=== PATIENT | female | born 1950 | race Caucasian/White ===

== ENCOUNTER 2024-03-05 08:10 | Observation (INO) ==
--- OUTSIDE RECORDS SUMMARY | 2024-03-05 09:37 | External Medical Summary | Summary of Care ---
Author Name Unknown Organization [facility] Address [address] [place] [address] Phone [phone] Care Team Providers Care Psychological Tests Sales Agent Name Role Phone George Cordoba Primary Care Provider Reason for Visit * Reason Comments Outpatient Testing Encounter Details Date Type Department Care Team (Late st Contact Info) Description 03/03/2024 9:50 AM EDT Laboratory Laboratory, [facility] [address] [place] [address] [facility] [address] [place] [address] HTN, goal below 130/80; Prediabetes; Dyslipidemia, goal LDL below 100; Abnormal nuclear cardiac imaging test Allergies No known active allergiesdocumented as of this encounter (statuses as of 03/03/2024) Medications Medication Sig Dispensed Refills Start Date End Date Status Centrum Silver 50+Women Oral Tablet Take by mouth. Active Omeprazole Magnesium 20 MG Oral Tablet Delayed Release Take 1 Tablet by mouth in the morning and 1 Tablet before bedtime. Active Acetaminophen 325 MG Oral Tablet (Tylenol) Take 2 Tablets by mouth in the morning and 2 Tablets at noon and 2 Tablets before bedtime. Active Magnesium Oxide 400 MG Oral Capsule Take 1 Capsule by mouth in the morning. Active Vitamin D3 50 MCG (1999 UT) Oral Capsule Take 1 Capsule by mouth in the morning. Active Aspirin 81 MG Oral Tablet Delayed Release Take 1 Tablet by mouth in the morning. Active Tylenol PM Extra Strength 500-25 MG Oral Tablet (diphenhydrAMINE-AP AP (sleep)) Take 1 Tablet by mouth at bedtime. Active Red Yeast Rice 600 MG Oral Tablet Take 2 Tablets by mouth every morning. Active Docusate Sodium 50 MG Oral Capsule (Colace) Take by mouth 2 times a day. Active Acetaminophen ER 650 MG Oral Tablet Extended Release Take 1 Tablet by mouth every 8 hours as needed. Active Nutritional Supplement Oral Liquid Take by mouth . Hylands Leg Cramps tablet, 2 tablets at bedtime Active Ketoconazole 2 % External Cream Apply 2 g topically to affected area in the morning. Apply to area as needed . 60 g 3 11/05/2022 Active Additional Information Patient not taking.Reported on 02/12/2024 Loratadine 10 MG Oral Tablet (Claritin) Take 1 Tablet by mouth in the morning. Active Losartan Potassium 25 MG Oral Tablet (Cozaar) Take 1 Tablet by mouth in the morning. 30 Tablet 5 10/11/2023 Active Metoprolol Succinate ER 25 MG Oral Tablet Extended Release 24 Hour (toPROL XL) Take 1 Tablet by mouth in the morning. 30 Tablet 5 12/04/2023 Active Nitroglycerin 0.4 MG Sublingual Tablet Sublingual (Nitrostat) Place 1 Tablet under the tongue every 5 minutes as needed for Pain, Chest. up to 3 doses in 15 minutes 12/04/2023 Active Fluticasone Propionate 50 MCG/ACT Nasal Suspension (Flonase)Indication s:Allergic rhinitis, unspecified seasonality, unspecified trigger Administer 2 Sprays into each nostril in the morning. 48 g 3 01/16/2024 Active Diclofenac Sodium 75 MG Oral Tablet Delayed Release (Voltaren) Take 1 Tablet by mouth in the morning and 1 Tablet before bedtime. 60 Tablet 5 01/28/2024 Active Ezetimibe 10 MG Oral Tablet (Zetia) Take 1 Tablet by mouth in the morning. 30 Tablet 5 02/12/2024 Active Losartan Potassium 50 MG Oral Tablet (Cozaar) TAKE 1 TABLET BY MOUTH EVERY MORNING 90 Tablet 2 02/26/2024 Active Chlorthalidone 25 MG Oral Tablet (Hygroton)Indicatio ns:Abnormal nuclear cardiac imaging test,HTN, goal below 130/80 Take 0.5 Tablets by mouth in the morning. In the morning.. 02/27/2024 Active documented as of this encounter (statuses as of 03/03/2024) Active Problems Problem Noted Date Diagnosed Date Dyslipidemia, goal LDL below 70 12/25/2023 Body mass index (BMI) of 40.0 to 44.9 in adult 0 10/22/2022 Overview: Per Obesity protocol Prediabetes 10/22/2022 Overview: Per Prediabetes protocol Asymptomatic bilateral carotid artery stenosis 0 11/08/2021 Statin intolerance 11/08/2021 Primary hyperparathyroidism 10/31/2021 Morbid obesity due to excess calories 05/02/2021 History of hyperparathyroidism 05/02/2021 HTN, goal below 130/80 05/02/2021 Generalized osteoarthritis 05/02/2021 Myofascial pain syndrome 05/02/2021 Hypovitaminosis D 05/02/2021 documented as of this encounter (statuses as of 03/03/2024) Immunizations Name Administration Dates Next Due COVID-19 mRNA, LNP-s, No Pre serve, 2-Dose Series ([employer]) 06/13/2021,10/29/2020,10/08/2020 Pneumococcal Conjugate Vacc, 13 Valent (Prevnar) 01/28/2020 Pneumococcal Polysaccharide PPV23 (Pneumovax) 01/30/2021 Varicella Zoster Vaccine (Adult) 05/31/2015 documented as of this encounter Social History Tobacco Use Types Packs/Day Years Used Date Smoking Tobacco: Former Cigarettes Q uit: 1985 Passive Smoke Exposure: Past Smokeless Tobacco: Never Alcohol Use Standard Drinks/Week Comments Not Currently 0 (1 standard drink = 0.6 oz pur e alcohol) PHQ-2 Answer Date Recorded PHQ Adult Total Score 0 12/07/2023 Utilities Answer Date Recorded Do you have trouble paying y our heating, water, or electric bill? (Adult - for ages 18 years and over) Not on file 01/28/2024 Is your family able to pay t he heat, water, or electric bill? (Household - for ages 0-17 years) Not on file 01/28/2024 Does your family have access to good internet? (Household - for ages 0-17 years) Not on file 01/28/2024 Social Connections Answer Date Recorded How often do you feel lonely or isolated from those around you? (Adult - for ages 18 years and over) Not on file 01/28/2024 Sex and Gender Information Value Date Recorded Sex Assigned at Not on file Gender Identity Not on file Sexual Orientation Not on file Job Start Date Occupation Industry Not on file Not on file Not on file documented as of this encounter Functional Status Functional Status Response Date of Assess ment Are you deaf or do you have serious difficulty h earing? No 03/07/2021 Are you blind or do you have serious difficulty seeing, even when wearing glasses? No 03/07/2021 Do you have serious difficul ty walking or climbing stairs? (5 years old or older) No 03/07/2021 Do you have difficulty dress ing or bathing? (5 years old or older) No 03/07/2021 Because of a physical, menta l, or emotional condition, do you have difficulty doing errands alone such as visiting a doctor s office or shopping? (15 years old or older) No 03/07/20 Cognitive Status Response Date of Assessm ent Because of a physical, menta l, or emotional condition, do you have serious difficulty concentrating, remembering, or making decisions? (5 years old or older) No 03/07/2021 documented as of this encounter Plan of Treatment Upcoming Encounters Date Type Department Care Team (Late st Contact Info) Description 05/19/2024 8:30 AM EDT Office Visit Cardiology, [facility] [address] [address] Sherrie Epperson PA-C [address] [address] 08/17/2024 10:00 AM EST Office Visit Family Practice [facility] [address] [place] [address] George Cordoba DO [address] [address] Pending Results Name Type Priority Associated Diagnoses Date /Time CBC WITH WBC DIFFERENTIAL Lab Routine HTN, goal below 130/80 03/03/2024 9:17 AM EDT COMPREHENSIVE METABOLIC PANEL Lab Routine HTN, goal below 130/80 Prediabetes Dyslipidemia, goal LDL below 100 03/03/2024 9:17 AM EDT HEMOGLOBIN A1C Lab Routine Prediabetes 03/03/2024 9:17 AM EDT LIPID PANEL WITH DIRECT LDL IF TG IS HIGH Lab Routine Dyslipidemia, goal LDL below 100 03/03/2024 9:17 AM EDT CBC Lab Routine HTN, goal below 130/80 03/03/2024 9:17 AM EDT DIFFERENTIAL, AUTOMATED Lab Routine HTN, goal below 130/80 03/03/2024 9:17 AM EDT Health Maintenance Due Date Last Done Comments DTaP,Tdap,and Td Vaccines (1 - Tdap) 1968 Cologuard 1994 Colonoscopy 1994 Fecal Occult Blood Test 1994 Sigmoidoscopy 1994 Zoster Vaccines (2 of 3) 07/26/2015 05/31/2015 COVID-19 Vaccine (4 - season) 2023 06/13/2021, 10/29/2020, 10/08/2020 Influenza Vaccine (FLU shot) (#1) 2024 HbA1c 11/27/2024 11/28/2023, 05/12, 10/29/2022, Additional history exists Depression Screening 12/06/2024 12/07/2023 GFR 02/25/2025 02/26/2024, 11/10, 10/11/2023, Additional history exists Albumin/Creatinine Ratio 11/27/2026 024, 05/30/2023, 11/02/2022 DXA Scan Discontinued 12/08/2018, 09/06/2016 Mammogram Discontinued 08/16/2020, 02/09/2020 Pneumococcal Vaccine: 65+ Years Completed 01/30/2021, 01/28/2020 Colorectal Cancer Screening Discontinued HPV (Gardasil) Vaccine Aged Out No lo nger eligible based on patient's age to complete this topic Hepatitis B Vaccine Aged Out No longe r eligible based on patient's age to complete this topic MENINGOCOCCAL (MENACTRA/MENVEO) Aged Out No longer eligible based on patient's age to complete this topic documented as of this encounter Medical Devices Not on filedocumented as of this encounter Visit Diagnoses Diagnosis HTN, goal below 130/80 Unspecified essential hypertension Prediabetes Other abnormal glucose Dyslipidemia, goal LDL below 100 Other and unspecified hyperlipidemia Abnormal nuclear cardiac imaging test Other nonspecific abnormal cardiovascular system function study documented in this encounter Advance Directives * Full Code (Latest Code Status on File) Date Activated Date Inactivated Comments 03/07/2021 1:11 PM 03/08/2021 1:17 PM This order r eflects the patients wishes and were consensually agreed upon. Care Teams Psychological Tests Sales Agent Relationship Specialty Start Date End Date George Cordoba DO [address] [place] [phone] PCP - General Family Medicine 05/02/21 documented as of this encounter
--- OUTSIDE RECORDS SUMMARY | 2024-03-05 09:37 | External Medical Summary | Summary of Care ---
Author Name Unknown Organization [facility] Address [address] [place] [address] Phone [phone] Care Team Providers Care Real Estate Paralegal Name Role Phone George Cordoba Primary Care Provider Reason for Visit * Reason Onset Date Comments Test Results 02/27/2024 Encounter Details Date Type Department Care Team (Late st Contact Info) Description 02/27/2024 Telephone Cardiology, [facility] [address] [facility] [place] [address] Sherrie Epperson PA-C [address] [facility] [place] [address] Test Results Allergies No known active allergiesdocumented as of this encounter (statuses as of 02/27/2024) Medications Medication Sig Dispensed Refills Start Date [...] PM Extra Strength 500-25 MG Oral Tablet (diphenhydrAMINE- APAP (sleep)) Take 1 Tablet by mouth at [...] Active Fluticasone Propionate 50 MCG/ACT Nasal Suspension (Flonase)Indicati ons:Allergic rhinitis, unspecified seasonality, unspecified trigger Administer 2 [...] 02/26/2024 Active Chlorthalidone 25 MG Oral Tablet (Hygroton)Indicat ions:Abnormal nuclear cardiac imaging test,HTN, goal below 130/80 Take 0.5 Tablets by mouth in the morning. In the morning.. 02/27/2024 Active Chlorthalidone 25 MG Oral Tablet (Hygroton)Indicat ions:HTN, goal below 130/80 TAKE 1 TABLET BY MOUTH EVERY MORNING 90 Tablet 2 02/26/2024 4 Discontinue d(Refill) documented as of this encounter (statuses as of 02/27/2024) Active Problems Problem Noted Date Diagnosed Date [...] as of this encounter (statuses as of 02/27/2024) Immunizations Name Administration Dates Next Due COVID-19 mRNA, LNP-s, No Pre serve, 2-Dose Series ([employer]) 06/13/2021,10/29/2020,10/08/2020 Pneumococcal Conjugate Vacc, 13 Valent (Prevnar) [...] No 03/07/2021 documented as of this encounter Miscellaneous Notes * Telephone Encounter - Farrah Vaca LPN - 02/27/2024 12:38 PM EDT ----- Message from Sherrie Epperson sent at 02/27/2024 9:51 AM EDT ----- Pre cath chest xray is clear * Telephone Encounter - Liban Guzmán RN - 02/27/2024 12:25 PM EDT Called and spoke to the patient and reviewed the message with her from Sherrie Epperson in regards to her pre-op lab work. She stated she understood. Med list updated and orders placed for lab work. * Telephone Encounter - Liban Guzmán RN - 02/27/2024 12:25 PM EDT ----- Message from Sherrie Epperson sent at 02/27/2024 9:53 AM EDT ----- Sodium is slightly low and BUN elevated. Recommend reducing chlorthalidone to 25 mg - 1/2 tab daily Repeat BMP early next week Other pre cath labs are stable documented in this encounter Plan of Treatment Upcoming Encounters Date Type Department Care Team (Late st Contact Info) Description 05/19/2024 8:30 AM EDT Office Visit Cardiology, [facility] [address] [place] [address] Sherrie Epperson PA-C [address] [place] [address] 08/17/2024 10:00 AM EST Office Visit Family Practice [facility] [address] [place] [address] George Cordoba DO [address] [place] [id number] Scheduled Orders Name Type Priority Associated Diagnoses Orde r Schedule BASIC METABOLIC PANEL Lab Routine Abnormal nuclear cardiac imaging test Expected: 03/03/2024 (Approximate), Expires: 02/26/2025 Health Maintenance Due Date Last Done Comments [...] as of this encounter Visit Diagnoses Diagnosis Abnormal nuclear cardiac imaging test- Primary Other nonspecific abnormal cardiovascular system function study HTN, goal below 130/80 Unspecified essential hypertension documented in this encounter Advance Directives * Full Code (Latest Code Status on File) Date Activated Date Inactivated Comments 03/07/2021 1:11 PM 03/08/2021 1:17 PM This order r eflects the patients wishes and were consensually agreed upon. Care Teams Real Estate Paralegal Relationship Specialty Start Date End Date George Cordoba DO [address] [place] [address] PCP - General Family Medicine 05/02/21 documented as of this encounter
--- OUTSIDE RECORDS SUMMARY | 2024-03-05 09:37 | External Medical Summary ---
Author Name Unknown Address Unknown Organization [id number] [address] [place] [id number] Laboratory Report Ordering Provider Test Date Status PERNELL KAY 03/03/2024 09:24:52 Final Observation Date Value Abnormality Reference (Units ) Status BUN 03/03/2024 09:24:52 21 Above high normal 6-20 (mg/dL) Final Creatinine 03/03/2024 09:24:52 0.8 0.5-1.0 (mg/dL) Final Glomerular filtration rate/1.73 sq M.predicted [Volume Rate/Area] in Serum, Plasma or Blood by Creatinine-based formula (CKD-EPI) 03/03/2024 09:24:52 74 >=60 (mL/min) Final eGFR is calculated based on the CKD-EPI 2020 equation. Sodium 03/03/2024 09:24:52 133 Below low normal 135 -146 (mmol/L) Final Potassium 03/03/2024 09:24:52 5.0 3.5-5.1 (m mol/L) Final Cl 03/03/2024 09:24:52 95 Below low normal 98- 107 (mmol/L) Final CO2 03/03/2024 09:24:52 25 22-32 (mmo l/L) Final Anion gap 03/03/2024 09:24:52 13 7-15 (mmol /L) Final Glucose 03/03/2024 09:24:52 109 70-120 (mg /dL) Final Calcium 03/03/2024 09:24:52 10.0 8.4-10.2 ( mg/dL) Final Performing Location [facility] [address] [place] [id number]
--- OUTSIDE RECORDS SUMMARY | 2024-03-05 09:37 | External Medical Summary | Summary of Care ---
Author Name Unknown Organization [facility] Address [address] [place] [address] Phone [phone] Care Team Providers Care Inspector And Mender Name Role Phone George Cordoba Primary Care Provider Reason for Visit * Reason Comments Outpatient Testing Encounter Details Date Type Department Care Team (Late st Contact Info) Description 03/03/2024 9:50 AM EDT Laboratory Laboratory, [facility] [address] [place] [address] [facility] [address] [place] [address] HTN, goal below 130/80; Prediabetes; Dyslipidemia, goal [...] mRNA, LNP-s, No Pre serve, 2-Dose Series (Empiribox) 06/13/2021,10/29/2020,10/08/2020 Pneumococcal Conjugate Vacc, 13 Valent (Prevnar) [...] 05/19/2024 8:30 AM EDT Office Visit Cardiology, [facility] [address] [address] Sherrie Epperson PA-C [address] [address] 08/17/2024 10:00 AM EST Office Visit Family Practice [facility] [address] [place] [address] George Cordoba DO [address] [address] Pending Results Name Type Priority Associated Diagnoses Date /Time CBC WITH WBC DIFFERENTIAL Lab Routine HTN, goal below 130/80 03/03/2024 9:17 AM EDT COMPREHENSIVE METABOLIC PANEL Lab Routine HTN, goal below 130/80 Prediabetes Dyslipidemia, goal LDL below 100 03/03/2024 9:17 AM EDT LIPID PANEL WITH [...] and were consensually agreed upon. Care Teams Inspector And Mender Relationship Specialty Start Date End Date George Cordoba DO [address] [address] PCP - General Family Medicine 05/02/21 documented as of this encounter
--- OUTSIDE RECORDS SUMMARY | 2024-03-05 09:37 | External Medical Summary | Summary of Care ---
Author Name Unknown Organization [facility] Address [address] [place] [address] Phone [phone] Care Team Providers Care Maltster Name Role Phone George Cordoba Primary Care Provider Reason for Visit * Reason Comments Outpatient Testing Encounter Details Date Type Department Care Team (Late st Contact Info) Description 03/03/2024 9:50 AM EDT Laboratory Laboratory, [facility] [address] [place] [address] [facility] [address] [place] [address] HTN, goal below 130/80; Prediabetes; Dyslipidemia, goal LDL below 100; Abnormal nuclear cardiac imaging test; Morbid obesity due to excess calories (HCC) Allergies No known active allergiesdocumented as of [...] the morning. Active Vitamin D3 50 MCG (2000 UT) Oral Capsule Take 1 Capsule by [...] mRNA, LNP-s, No Pre serve, 2-Dose Series (Pfizer) 06/13/2021,10/29/2020,10/08/2020 Pneumococcal Conjugate Vacc, 13 Valent (Prevnar) [...] 05/19/2024 8:30 AM EDT Office Visit Cardiology, [facility] [address] [address] Sherrie Epperson PA-C [address] [address] 08/17/2024 10:00 AM EST Office Visit Family Practice [facility] [address] [address] George Cordoba, [address] [address] Pending Results Name Type Priority Associated Diagnoses Date /Time BASIC METABOLIC PANEL Lab Routine Morbid obesity due to excess calories (HCC) 03/03/2024 9:24 AM EDT Scheduled Orders Name Type Priority Associated Diagnoses Orde r Schedule CBC Lab Routine HTN, goal below 130/80 Ordered: 03/03/2024 DIFFERENTIAL, AUTOMATED Lab Routine HTN, goal below 130/80 Ordered: 03/03/2024 Health Maintenance Due Date Last Done Comments [...] Other nonspecific abnormal cardiovascular system function study Morbid obesity due to excess calories (HCC) documented in this encounter Advance Directives * Full Code (Latest Code Status on File) Date Activated Date Inactivated Comments 03/07/2021 1:11 PM 03/08/2021 1:17 PM This order r eflects the patients wishes and were consensually agreed upon. Care Teams Maltster Relationship Specialty Start Date End Date George Cordoba DO [address] [address] PCP - General Family Medicine 05/02/21 documented as of this encounter
--- OUTSIDE RECORDS SUMMARY | 2024-03-05 09:37 | External Medical Summary | Summary of Care ---
Author Name Unknown Organization [facility] Address [address] [place] [address] Phone [phone] Care Team Providers Care Financial Operations Analyst Name Role Phone George Cordoba Primary Care Provider Reason for Visit * Reason Onset Date Comments Procedure 03/04/2024 Encounter Details Date Type Department Care Team (Late st Contact Info) Description 03/04/2024 Telephone Cardiology, [facility] [address] [place] [address] Sherrie Epperson PA-C [address] [facility] [place] [address] Procedure Allergies No known active allergiesdocumented as of this encounter (statuses as of 03/04/2024) Medications Medication Sig Dispensed Refills Start Date [...] as of this encounter (statuses as of 03/04/2024) Active Problems Problem Noted Date Diagnosed Date [...] as of this encounter (statuses as of 03/04/2024) Immunizations Name Administration Dates Next Due COVID-19 mRNA, LNP-s, No Pre serve, 2-Dose Series ([employer]) 06/13/2021,10/29/2020,10/08/2020 Pneumococcal Conjugate Vacc, 13 Valent (Prevnar) [...] encounter Miscellaneous Notes * Telephone Encounter - Liban Guzmán RN - 03/04/2024 12:01 PM EDT Patient scheduled for cardiac cath on 03/04/2026 at [facility] with Dr. Marquez. Arrival time is 0830. Procedure at 0930. Arrive at main entrance. 1). Do not eat or drink anything at 10:00 pm the night before procedure. 2). No caffeine for 24 hours before procedure. 3). No tobacco products after midnight on the night before procedure. 4). Do not take the [place] the morning of the procedure 5). Take Losartan; Metoprolol; Claritin; Magnesium; the morning of the procedure 6).Take (4) 81 mg ASA the morning of the procedure. 7). Do not wear any jewelry. 8). Take all medications to the hospital with you in original bottles. 9). Make sure you have someone drive you home. Call the clinic if you have any further questions or concerns. documented in this encounter Plan of Treatment Upcoming Encounters Date Type Department Care Team (Late st Contact Info) Description 05/19/2024 8:30 AM EDT Office Visit Cardiology, [facility] [address] [place] [address] Sherrie Epperson PA-C [address] [place] [address] 08/17/2024 10:00 AM EST Office Visit Family Practice [facility] [address] [place] [address] George Cordoba DO [address] [place] [address] Health Maintenance Due Date Last Done Comments DTaP,Tdap,and Td Vaccines (1 - Tdap) 1968 Cologuard 1994 Colonoscopy 1994 Fecal Occult Blood Test 1994 Sigmoidoscopy 1994 Zoster Vaccines (2 of 3) 07/26/2015 05/31/2015 COVID-19 Vaccine ( season) 2023 06/13/2021, 10/29/2020, 10/08/2020 Influenza Vaccine (FLU shot) (#1) 2024 HbA1c 11/27/2024 11/28/2023, 05/12, 10/29/2022, Additional history exists Depression Screening 12/06/2024 12/07/2023 GFR 03/03/2025 03/03/2024, 02/09, 11/28/2023, Additional history exists Albumin/Creatinine Ratio 11/27/20262 024, 05/30/2023, 11/02/2022 DXA Scan Discontinued 12/08/2018, [...] Not on filedocumented as of this encounter Advance Directives * Full Code (Latest Code Status on File) Date Activated Date Inactivated Comments 03/07/2021 1:11 PM 03/08/2021 1:17 PM This order r eflects the patients wishes and were consensually agreed upon. Care Teams Financial Operations Analyst Relationship Specialty Start Date End Date George Cordoba DO [address] [address] PCP - General Family Medicine 05/02/21 documented as of this encounter
--- OUTSIDE RECORDS SUMMARY | 2024-03-05 09:37 | External Medical Summary | Summary of Care ---
Author Name Unknown Organization [facility] Address [address] [place] [address] Phone [phone] Care Team Providers Care Injection Operator Name Role Phone George Cordoba Primary Care Provider Reason for Visit * Reason Comments Outpatient Testing Encounter Details Date Type Department Care Team (Late st Contact Info) Description 03/03/2024 9:50 AM EDT Laboratory Laboratory, [facility] [address] [place] [address] [facility] [address] [place] [address] HTN, goal below 130/80; Prediabetes; Dyslipidemia, goal [...] mRNA, LNP-s, No Pre serve, 2-Dose Series ([employer]) 06/13/2021,10/29/2020,10/08/2020 Pneumococcal Conjugate Vacc, 13 Valent (Prevnar) [...] 05/19/2024 8:30 AM EDT Office Visit Cardiology, [facility] [address] [address] Sherrie Epperson PA-C [address] [address] 08/17/2024 10:00 AM EST Office Visit Family Practice [facility] [address] [address] George Cordoba DO [address] [address] Pending Results Name Type Priority Associated Diagnoses Date /Time COMPREHENSIVE METABOLIC PANEL Lab Routine HTN, goal below 130/80 Prediabetes Dyslipidemia, goal LDL below 100 03/03/2024 9:17 AM EDT Scheduled Orders Name Type Priority [...] and were consensually agreed upon. Care Teams Injection Operator Relationship Specialty Start Date End Date George Cordoba DO [address] [address] PCP - General Family Medicine 05/02/21 documented as of this encounter
--- OUTSIDE RECORDS SUMMARY | 2024-03-05 09:37 | External Medical Summary | Summary of Care ---
Author Name Unknown Organization [facility] Address [address] [place] [address] Phone [phone] Care Team Providers Care Sonar Technician Name Role Phone George Cordoba Primary Care Provider Reason for Visit * Reason Comments Outpatient Testing Encounter Details Date Type Department Care Team (Late st Contact Info) Description 03/03/2024 9:50 AM EDT Laboratory Laboratory, [facility] [address] [place] [address] [facility] [address] [place] [address] HTN, goal below 130/80; Prediabetes; Dyslipidemia, goal [...] 05/19/2024 8:30 AM EDT Office Visit Cardiology, [facility] [address] [address] Sherrie Epperson PA-C [address] [address] 08/17/2024 10:00 AM EST Office Visit Family Practice [facility] [address] [address] George Cordoba, [address] [address] Pending Results Name Type Priority Associated Diagnoses [...] and were consensually agreed upon. Care Teams Sonar Technician Relationship Specialty Start Date End Date George Cordoba DO [address] [address] PCP - General Family Medicine 05/02/21 documented as of this encounter
--- OUTSIDE RECORDS SUMMARY | 2024-03-05 09:37 | External Medical Summary | Summary of Care ---
Author Name Unknown Organization [facility] Address [address] [place] [address] Phone [phone] Care Team Providers Care Roof Slater Name Role Phone George Cordoba Primary Care Provider Reason for Visit * Reason Comments Outpatient Testing Encounter Details Date Type Department Care Team (Late st Contact Info) Description 03/03/2024 9:50 AM EDT Laboratory Laboratory, [facility] [address] [facility] [place] [address] [facility] [address] [facility] [place] [address] HTN, goal below 130/80; Prediabetes; Dyslipidemia, goal [...] mRNA, LNP-s, No Pre serve, 2-Dose Series ([employer]) 06/13/2021,10/29/2020,10/08/2020 Pneumococcal Conjugate Vacc, 13 Valent (Prevnar) [...] 05/19/2024 8:30 AM EDT Office Visit Cardiology, [facility] [address] [address] Sherrie Epperson PA-C [address] [address] 08/17/2024 10:00 AM EST Office Visit Family Practice [facility] [address] [address] George Cordoba DO [address] [address] Pending Results Name Type Priority Associated Diagnoses [...] and were consensually agreed upon. Care Teams Roof Slater Relationship Specialty Start Date End Date George Cordoba DO [address] [place] [address] PCP - General Family Medicine 05/02/21 documented as of this encounter
--- OUTSIDE RECORDS SUMMARY | 2024-03-05 09:37 | External Medical Summary | Summary of Care ---
Author Name Unknown Organization [facility] Address [address] [place] [address] Phone [phone] Care Team Providers Care Bag Making Machine Operator Name Role Phone George Cordoba Primary Care Provider Reason for Visit * Reason Comments Outpatient Testing Encounter Details Date Type Department Care Team (Late st Contact Info) Description 03/03/2024 9:50 AM EDT Laboratory Laboratory, [facility] [address] [place] [address] [facility] [address] [place] [address] HTN, goal below 130/80; Prediabetes; Dyslipidemia, goal [...] mRNA, LNP-s, No Pre serve, 2-Dose Series ([employer]) 06/13/2021,10/29/2020,10/08/2020 Pneumococcal Conjugate Vacc, 13 Valent (Prevnar) [...] 8:30 AM EDT Office Visit Cardiology, [facility] [address] [address] Sherrie Epperson PA-C [address] [address] 08/17/2024 10:00 AM EST Office Visit Family Practice [facility] [address] [address] George Cordoba DO [address] [address] Scheduled Orders Name Type Priority Associated Diagnoses [...] and were consensually agreed upon. Care Teams Bag Making Machine Operator Relationship Specialty Start Date End Date George Cordoba DO [address] [place] [address] PCP - General Family Medicine 05/02/21 documented as of this encounter
--- OUTSIDE RECORDS SUMMARY | 2024-03-05 09:37 | External Medical Summary | Summary of Care ---
Author Name Unknown Organization [facility] Address [address] [place] [address] Phone [phone] Care Team Providers Care Musical Instrument Mechanic Name Role Phone George Cordoba Primary Care Provider Reason for Visit * Reason Onset Date Comments Test Results 02/27/2024 Encounter Details Date Type Department Care Team (Late st Contact Info) Description 02/27/2024 Telephone Cardiology, [facility] [address] [facility] [place] [address] Sherrie Epperson PA-C [address] [facility] [address] Test Results Allergies No known active allergiesdocumented [...] mRNA, LNP-s, No Pre serve, 2-Dose Series ([employer]) 06/13/2021,10/29/2020,10/08/2020 Pneumococcal Conjugate Vacc, 13 Valent (Prevnar) [...] 05/19/2024 8:30 AM EDT Office Visit Cardiology, [facility] [address] [place] [address] Sherrie Epperson PA-C [address] [place] [address] 08/17/2024 10:00 AM EST Office Visit Family Practice [facility] [address] [place] [place] [address] George Cordoba DO [address] [place] [address] Scheduled Orders Name Type Priority Associated Diagnoses [...] and were consensually agreed upon. Care Teams Musical Instrument Mechanic Relationship Specialty Start Date End Date George Cordoba DO [address] [place] [address] PCP - General Family Medicine 05/02/21 documented as of this encounter
--- OUTSIDE RECORDS SUMMARY | 2024-03-05 09:37 | External Medical Summary | Summary of Care ---
Author Name Unknown Organization [facility] Address [address] [place] [address] Phone [phone] Care Team Providers Care Customs And Border Protection Inspector Name Role Phone George Cordoba Primary Care Provider Reason for Visit * Reason Comments Outpatient Testing Encounter Details Date Type Department Care Team (Late st Contact Info) Description 03/03/2024 9:50 AM EDT Laboratory Laboratory, [facility] [address] [place] [address] [facility] [address] [place] [address] HTN, goal below 130/80; Prediabetes; Dyslipidemia, goal [...] mRNA, LNP-s, No Pre serve, 2-Dose Series ([employer]) 06/13/2021,10/29/2020,10/08/2020 Pneumococcal Conjugate Vacc, 13 Valent (Prevnar) [...] 05/19/2024 8:30 AM EDT Office Visit Cardiology, [facility] [address] [address] Sherrie Epperson PA-C [address] [address] 08/17/2024 10:00 AM EST Office Visit Family Practice [facility] [address] [address] George Cordoba DO [address] [address] Scheduled Orders Name Type Priority Associated Diagnoses [...] and were consensually agreed upon. Care Teams Customs And Border Protection Inspector Relationship Specialty Start Date End Date George Cordoba DO [address] [place] [address] PCP - General Family Medicine 05/02/21 documented as of this encounter
--- OUTSIDE RECORDS SUMMARY | 2024-03-05 09:38 | External Medical Summary | Summary of Care ---
Author Name Unknown Organization [facility] Address [address] [place] [address] Phone [phone] Care Team Providers Care Buyer Broker Name Role Phone George Cordoba Primary Care Provider Reason for Visit * Reason Onset Date Comments Procedure 02/26/2024 Encounter Details Date Type Department Care Team (Late st Contact Info) Description 02/26/2024 Telephone Cardiology, [facility] [address] [place] [address] Sherrie Epperson PA-C [address] [facility] [place] [address] Procedure Allergies No known active allergiesdocumented as of this encounter (statuses as of 02/26/2024) Medications Medication Sig Dispensed Refills Start Date [...] Additional Information Patient not taking.Reported on 02/12/2024 Chlorthalidone 25 MG Oral Tablet (Hygroton)Indicatio ns:HTN, goal below 130/80 Take 1 Tablet by mouth in the morning. In the morning.. 90 Tablet 3 06/04/2023 Active Loratadine 10 MG Oral Tablet (Claritin) Take [...] the morning. 30 Tablet 5 02/12/2024 Active documented as of this encounter (statuses as of 02/26/2024) Active Problems Problem Noted Date Diagnosed Date [...] as of this encounter (statuses as of 02/26/2024) Immunizations Name Administration Dates Next Due COVID-19 mRNA, LNP-s, No Pre serve, 2-Dose Series ([email or web address]) 06/13/2021,10/29/2020,10/08/2020 Pneumococcal Conjugate Vacc, 13 Valent (Prevnar) [...] (15 years old or older) No 03/07/20 21 Cognitive Status Response Date of Assessm ent Because of a physical, menta l, or emotional condition, do you have serious difficulty concentrating, remembering, or making decisions? (5 years old or older) No 03/07/2021 documented as of this encounter Miscellaneous Notes * Telephone Encounter - Liban Guzmán RN - 02/26/2024 9:11 AM EDT Patient is scheduled for cardiac cath on 03/05/[address] Marquez at [facility]. She stopped in today for her EKG and pre-op teaching. During her visit today she stated she cannot take the Zetia, It is causing her severe muscle pains. She states she is going to stop it for a week to see if that is theproblem. She will let us know how she makes out. 1). Arrive at [facility] main entrance on 03/05/2024 at 0830 am. 2). Nothing to eat or drink after Midnight the night before the cath. 3). No caffeine for 24 hours prior to the procedure. 4). No tobacco products after midnight thenight berore the procedure. 5). No over the counter vitamins, fish oil and or vitamin E the morning of your procedure. 6). You may take all your morning meds with a sip of water in the am of the procedure. 7). Take four (4) 81 mg low dose aspirin on the morning of your procedure. 8). Do not wear any jewelry the day of the procedure. 9). Take all your medication with you in the orginal container. 10). The plan is to discharge you after the procedure. You will go to recovery after the procedure.Please take something to read or tablet. No TV's in the room. 11). Please have someone available with you to drive you home. 12). Call the clinic if you have any questions before or after the procedure. documented in this encounter Plan of Treatment Upcoming Encounters Date Type Department Care Team (Late st Contact Info) Description 05/19/2024 8:30 AM EDT Office Visit Cardiology, [facility] [address] [place] [address] Sherrie Epperson PA-C [address] [place] [address] 08/17/2024 10:00 AM EST Office Visit Family Practice [facility] [address] [place] [address] George Cordoba, [address] [place] [address] Health Maintenance Due Date Last Done Comments DTaP,Tdap,and Td Vaccines (1 - Tdap) 1968 Cologuard 1994 Colonoscopy 1994 Fecal Occult Blood Test 1994 Sigmoidoscopy 1994 Zoster Vaccines (2 of 3) 07/26/2015 05/31/2015 COVID-19 Vaccine ( season) 2023 06/13/2021, 10/29/2020, 10/08/2020 Influenza Vaccine (FLU shot) (#1) 2024 GFR 11/27/2024 11/28/2023, 0308/2023, 05/28/2023, Additional history exists HbA1c 11/27/2024 11/28/2023, 05/12, 10/29/2022, Additional history exists Depression Screening 12/06/2024 12/07/2023 Albumin/Creatinine Ratio 11/27/20262 024, 05/30/2023, 11/02/2022 DXA [...] and were consensually agreed upon. Care Teams Buyer Broker Relationship Specialty Start Date End Date George Cordoba DO [address] [address] PCP - General Family Medicine 05/02/21 documented as of this encounter
--- OUTSIDE RECORDS SUMMARY | 2024-03-05 09:38 | External Medical Summary | Summary of Care ---
Author Name Unknown Organization [facility] Address [address] [place] [address] Phone [phone] Care Team Providers Care Filling And Stapling Machine Operator Name Role Phone George Cordoba Primary Care Provider Reason for Visit * Reason Comments Outpatient Testing Encounter Details Date Type Department Care Team (Late st Contact Info) Description 02/26/2024 9:20 AM EDT Laboratory Laboratory, [facility] [address] [place] [address] [facility] [address] [place] [address] Chest pain, unspecified type; Abnormal nuclear cardiac imaging test Allergies No [...] mRNA, LNP-s, No Pre serve, 2-Dose Series ([employer]) 06/13/2021,10/29/2020,10/08/2020 Pneumococcal Conjugate Vacc, 13 Valent (Prevnar) [...] 05/19/2024 8:30 AM EDT Office Visit Cardiology, [facility] [address] [place] [address] Sherrie Epperson PA-C [address] [address] 08/17/2024 10:00 AM EST Office Visit Family Practice [facility] [address] [address] George Cordoba, [address] [address] Pending Results Name Type Priority Associated Diagnoses Date /Time CBC Lab Routine Chest pain, unspecified type Abnormal nuclear cardiac imaging test 02/26/2024 9:31 AM EDT BASIC METABOLIC PANEL Lab Routine Chest pain, unspecified type Abnormal nuclear cardiac imaging test 02/26/2024 9:31 AM EDT PT INR Lab Routine Chest pain, unspecified type Abnormal nuclear cardiac imaging test 02/26/2024 9:31 AM EDT APTT Lab Routine Chest pain, unspecified type Abnormal nuclear cardiac imaging test 02/26/2024 9:31 AM EDT Health Maintenance Due Date Last Done Comments DTaP,Tdap,and Td Vaccines (1 - Tdap) 1968 Cologuard 1994 Colonoscopy 1994 Fecal Occult Blood Test 1994 Sigmoidoscopy 1994 Zoster Vaccines (2 of 3) 07/26/2015 05/31/2015 COVID-19 Vaccine ( season) 2023 06/13/2021, 10/29/2020, 10/08/2020 Influenza Vaccine (FLU shot) (#1) 2024 GFR 11/27/2024 11/28/2023, 08/2023, 05/28/2023, Additional history exists HbA1c 11/27/2024 11/28/2023, 05/12, 10/29/2022, Additional history exists Depression Screening 12/06/2024 12/07/2023 Albumin/Creatinine Ratio 11/27/2026 024, 05/30/2023, 11/02/2022 DXA [...] as of this encounter Visit Diagnoses Diagnosis Chest pain, unspecified type Abnormal nuclear cardiac imaging test Other nonspecific abnormal cardiovascular system function study documented in this encounter Advance Directives * Full Code (Latest Code Status on File) Date Activated Date Inactivated Comments 03/07/2021 1:11 PM 03/08/2021 1:17 PM This order r eflects the patients wishes and were consensually agreed upon. Care Teams Filling And Stapling Machine Operator Relationship Specialty Start Date End Date George Cordoba DO [address] [place] [address] PCP - General Family Medicine 05/02/21 documented as of this encounter
--- OUTSIDE RECORDS SUMMARY | 2024-03-05 09:38 | External Medical Summary | Summary of Care ---
Author Name Unknown Organization [facility] Address [address] [place] [address] Phone [phone] Care Team Providers Care Stage Set Up Worker Name Role Phone George Cordoba Primary Care Provider Reason for Visit * Reason Onset Date Comments Procedure 02/26/2024 Encounter Details Date Type Department Care Team (Late st Contact Info) Description 02/26/2024 Telephone Cardiology, [facility] [address] [place] [address] Sherrie Epperson PA-C [address] [facility] [place] [address] Procedure Allergies No known active allergiesdocumented as [...] mRNA, LNP-s, No Pre serve, 2-Dose Series ([employer]) 06/13/2021,10/29/2020,10/08/2020 Pneumococcal Conjugate Vacc, 13 Valent (Prevnar) [...] for cardiac cath on 03/05/[address] Maqruez at [facility]. She stopped in today for her EKG and pre-op teaching. During her visit today she stated she cannot take the Zetia, It is causing her severe muscle pains. She states she is going to stop it for a week to see if that is theproblem. She will let us know how she makes out. 1). Arrive at [facility] main entrance on 03/05/2024 at 0830 am. [...] 05/19/2024 8:30 AM EDT Office Visit Cardiology, [facility] [address] [place] [address] Sherrie Epperson PA-C [address] [place] [address] 08/17/2024 10:00 AM EST Office Visit Family Practice [facility] [address] [place] [address] George Cordoba, [address] [place] [address] Health Maintenance Due Date Last Done Comments [...] and were consensually agreed upon. Care Teams Stage Set Up Worker Relationship Specialty Start Date End Date George Cordoba DO [address] [address] PCP - General Family Medicine 05/02/21 documented as of this encounter
--- OUTSIDE RECORDS SUMMARY | 2024-03-05 09:38 | External Medical Summary ---
Author Name Unknown Address Unknown Organization [facility] [address] [place] [id number] Laboratory Report Ordering Provider Test Date Status PERNELL KAY 02/26/2024 09:31:00 Final Warfarin Therapy
INR: 2 .0-3.0 conventional anticoagulation
INR: 2.5- 3.5 high intensity anticoagulation Observation Date Value Abnormality Reference (Units ) Status PT 02/26/2024 09:31:00 12.3 11.6-15.2 (seconds) Final INR 02/26/2024 09:31:00 0.9 0.8-1.2 Final Performing Location [facility] [address] [place] [id number]
--- OUTSIDE RECORDS SUMMARY | 2024-03-05 09:38 | External Medical Summary ---
Author Name Unknown Address Unknown Organization [id number] [address] [place] [id number] Laboratory Report Ordering Provider Test Date Status PERNELL AKY 02/26/2024 09:31:00 Final Observation Date Value Abnormality Reference (Units ) Status WBC, Total 02/26/2024 09:31:00 10.58 4.00-10.8 0 (K/uL) Final RBC 02/26/2024 09:31:00 4.65 3.85-5.15 (M/uL) Final Hemoglobin 02/26/2024 09:31:00 13.2 12.0-15.3 (g/dL) Final HCT 02/26/2024 09:31:00 40.7 36.0-45.2 (%) Final MCV 02/26/2024 09:31:00 87.5 81.5-97.5 (fL) Final MCH 02/26/2024 09:31:00 28.4 27.0-34.0 (pg) Final MCHC 02/26/2024 09:31:00 32.4 32.0-36.0 (g/dL) Final RDW 02/26/2024 09:31:00 12.9 11.5-15.5 (%) Final Platelets 02/26/2024 09:31:00 353 140-400 (K /uL) Final MPV 02/26/2024 09:31:00 8.8 6.6-11.1 ( fL) Final Performing Location [facility] [address] [place] [id number]
--- OUTSIDE RECORDS SUMMARY | 2024-03-05 09:38 | External Medical Summary | Summary of Care ---
Author Name Unknown Organization [facility] Address [address] [place] [facility] [place] [address] Phone [phone] Care Team Providers Care Vehicle Sales Professional Name Role Phone George Cordoba Primary Care Provider Reason for Visit * Reason Onset Date Comments Advice 02/19/2024 Set up heart cat h & discuss Encounter Details Date Type Department Care Team (Late st Contact Info) Description 02/19/2024 Telephone Cardiology, [facility] [address] [place] [address] Sherrie Epperson PA-C [address] [place] [address] Advice (Set up heart cath & discuss) Allergies No known active allergiesdocumented as of this encounter (statuses as of 02/20/2024) Medications Medication Sig Dispensed Refills Start Date [...] as of this encounter (statuses as of 02/20/2024) Active Problems Problem Noted Date Diagnosed Date [...] as of this encounter (statuses as of 02/20/2024) Immunizations Name Administration Dates Next Due COVID-19 mRNA, LNP-s, No Pre serve, 2-Dose Series ([employer]) 06/13/2021,10/29/2020,10/08/2020 Pneumococcal Conjugate Vacc, 13 Valent (Prevnar) [...] Telephone Encounter - Liban Guzmán RN - 02/20/2024 2:52 PM EDT Called and spoke to the patient and explained she is scheduled for cardiac cath at [facility] on 03/05/2024 at arrival time of 0830 am . She stated that will be fine. She will come in on February 26, 2024 forall her pre-op studies. Orders placed. * Telephone Encounter - Sherrie Epperson PA-C - 02/20/2024 1:03 PM EDT Please arrange diagnostic cardiac cath at [facility] I believe patient was leaning towards [place] due to transportation issues. We discussed both options. See where she prefers. She will need updated EKG, labs, chest xray prior to procedure. * Telephone Encounter - Cherelle Martinez OSA - 02/19/2024 9:38 AM EDT Person calling: Ashley Relationship to patient: Self Number to return call: [phone] Reason for call (brief): Discuss heart cath Pharmacy: N/A Provider Name: Sherrie Epperson Detailed message to office: Seen last week & wants to set up a heat Cath. Please call back to advise Outcome: TE documented in this encounter Plan of Treatment Upcoming Encounters Date Type Department Care Team (Late st Contact Info) Description 02/26/2024 9:00 AM EDT Cardiac Studies Cardiac Studies, [facility] [address] [place] [address] 05/19/2024 8:30 AM EDT Office Visit Cardiology, [facility] [address] [place] [address] Sherrie Epperson, TRISHA [address] [place] [address] 08/17/2024 10:00 AM EST Office Visit Family Practice [facility] [address] [place] [address] George Cordoba DO [address] [place] [address] Scheduled Orders Name Type Priority Associated Diagnoses Orde r Schedule EKG COMPLETE (TRACING AND INTERP) EKG Routine Chest pain, unspecified type Abnormal nuclear cardiac imaging test Ordered: 02/20/2024 XR CHEST 2 VIEWS Medical Imaging Routine Chest pain, unspecified type Abnormal nuclear cardiac imaging test Expected: 03/05/2024, Expires: 03/22/2025 CBC Lab Routine Chest pain, unspecified type Abnormal nuclear cardiac imaging test Expected: 02/20/2024, Expires: 02/19/2025 BASIC METABOLIC PANEL Lab Routine Chest pain, unspecified type Abnormal nuclear cardiac imaging test Expected: 02/20/2024, Expires: 02/19/2025 PT INR Lab Routine Chest pain, unspecified type Abnormal nuclear cardiac imaging test Expected: 02/20/2024, Expires: 02/19/2025 APTT Lab Routine Chest pain, unspecified type Abnormal nuclear cardiac imaging test Expected: 02/20/2024, Expires: 02/19/2025 Health Maintenance Due Date Last Done Comments DTaP,Tdap,and Td Vaccines (1 - Tdap) 1968 Cologuard 1994 Colonoscopy 1994 Fecal Occult Blood Test 1994 Sigmoidoscopy 1994 Zoster Vaccines (2 of 3) 07/26/2015 05/31/2015 COVID-19 Vaccine (4 - 2022- season) 2023 06/13/2021, 10/29/2020, 10/08/2020 Influenza Vaccine (FLU shot) (#1) 2024 GFR 11/27/2024 11/28/2023, 03/0 08/2023, 05/28/2023, Additional history exists HbA1c 11/27/2024 [...] encounter Visit Diagnoses Diagnosis Chest pain, unspecified type- Primary Abnormal nuclear cardiac imaging test Other nonspecific abnormal cardiovascular system function study documented in this encounter Advance Directives * Full Code (Latest Code Status on File) Date Activated Date Inactivated Comments 03/07/2021 1:11 PM 03/08/2021 1:17 PM This order r eflects the patients wishes and were consensually agreed upon. Care Teams Vehicle Sales Professional Relationship Specialty Start Date End Date George Cordoba DO [address] [address] PCP - General Family Medicine 05/02/21 documented as of this encounter
--- OUTSIDE RECORDS SUMMARY | 2024-03-05 09:38 | External Medical Summary | Summary of Care ---
Author Name Unknown Organization [facility] Address [address] [place] [address] Phone [phone] Care Team Providers Care Drop Tester Name Role Phone George Cordoba Primary Care Provider Encounter Details Date Type Department Care Team (Late st Contact Info) Description 02/25/2024 Orders Only PATIENT PORTAL DO NOT DELETE THIS DEPT USED BY [place] [id number] Allergies No known active allergiesdocumented as of this encounter (statuses as of 02/25/2024) Medications Medication Sig Dispensed Refills Start Date [...] as of this encounter (statuses as of 02/25/2024) Active Problems Problem Noted Date Diagnosed Date [...] as of this encounter (statuses as of 02/25/2024) Immunizations Name Administration Dates Next Due COVID-19 [...] 9:00 AM EDT Cardiac Studies Cardiac Studies, [facility] [address] [place] [address] 05/19/2024 8:30 AM EDT Office Visit Cardiology, [facility] [address] [address] Sherrie Epperson, TRISHA [address] [place] [address] 08/17/2024 10:00 AM EST Office Visit Family Practice [facility] [address] [place] [address] George Cordoba DO [address] [place] [address] Health Maintenance Due Date Last Done Comments [...] and were consensually agreed upon. Care Teams Drop Tester Relationship Specialty Start Date End Date George Cordoba DO [address] [place] [address] PCP - General Family Medicine 05/02/21 documented as of this encounter
--- OUTSIDE RECORDS SUMMARY | 2024-03-05 09:38 | External Medical Summary | Summary of Care ---
Author Name Unknown Organization [facility] Address [address] [place] [address] Phone [phone] Care Team Providers Care Refining Engineer Name Role Phone George Cordoba Primary Care Provider Reason for Visit * Reason Onset Date Comments Procedure 02/26/2024 Encounter Details Date Type Department Care Team (Late st Contact Info) Description 02/26/2024 Telephone Cardiology, [facility] [address] [place] [address] Sherrie Epperson PA-C [address] [place] [address] Procedure Allergies No known active allergiesdocumented as [...] the morning. 30 Tablet 5 02/12/2024 Active Chlorthalidone 25 MG Oral Tablet (Hygroton)Indicat ions:HTN, goal below 130/80 Take 1 Tablet by mouth in the morning. In the morning.. 90 Tablet 3 06/04/2023 4 Discontinued documented as of this encounter (statuses as [...] mRNA, LNP-s, No Pre serve, 2-Dose Series ([employer] 06/13/2021,10/29/2020,10/08/2020 Pneumococcal Conjugate Vacc, 13 Valent (Prevnar) [...] encounter Miscellaneous Notes * Telephone Encounter - Sherrie Epperson PA-C - 02/26/2024 3:57 PM EDT Noted. Agree with holding Zetia and await response. Await cath findings as well * Addendum Note - Rosie James RN - 02/26/2024 11:53 AM EDTAddended by: ROSIE JAMES on: 02/26/2024 11:53 AM Modules accepted: Orders * Telephone Encounter - Liban Guzmán RN - 02/26/2024 9:11 AM EDT Patient is scheduled for cardiac cath on 03/05/[address] Marquez at [facility]. She stopped in today for her EKG and pre-op teaching. During her visit today she stated she cannot take the Zetia, It is causing her severe muscle pains. She states she is going to stop it for a week to see if that is theproblem. She will let us know how she makes out. 1). Arrive at [facility] main entrance on 03/05/2024 at 0830 [...] Cardiology, [facility] [address] [address] Sherrie Epperson PA-C [address] [address] 08/17/2024 10:00 AM EST Office Visit Family Practice [facility] [address] [address] George Cordoba DO [address] [address] Scheduled Orders Name Type Priority Associated Diagnoses Orde r Schedule CORONARY ANGIOGRAPHY W/LEFT HEART CATH Card Cath Routine Abnormal nuclear cardiac imaging test Chest pain, unspecified type Dyslipidemia, goal LDL below 70 Ordered: 02/26/2024 Health Maintenance Due Date Last Done Comments [...] Other nonspecific abnormal cardiovascular system function study Chest pain, unspecified type Dyslipidemia, goal LDL below 70 Other and unspecified hyperlipidemia documented in this encounter Advance Directives * Full Code (Latest Code Status on File) Date Activated Date Inactivated Comments 03/07/2021 1:11 PM 03/08/2021 1:17 PM This order r eflects the patients wishes and were consensually agreed upon. Care Teams Refining Engineer Relationship Specialty Start Date End Date George Cordoba DO [address] [place] [address] PCP - General Family Medicine 05/02/21 documented as of this encounter
--- OUTSIDE RECORDS SUMMARY | 2024-03-05 09:38 | External Medical Summary ---
Author Name Unknown Address Unknown Organization K0[facility] [address] [place] [id number] Laboratory Report Ordering Provider Test Date Status PERNELL KAY 02/26/2024 09:31:00 Final Observation Date Value Abnormality Reference (Units ) Status BUN 02/26/2024 09:31:00 23 Above high normal 6-20 (mg/dL) Final Creatinine 02/26/2024 09:31:00 0.9 0.5-1.0 (mg/dL) Final Glomerular filtration rate/1.73 sq M.predicted [Volume Rate/Area] in Serum, Plasma or Blood by Creatinine-based formula (CKD-EPI) 02/26/2024 09:31:00 64 >=60 (mL/min) Final eGFR is calculated based on the CKD-EPI 2020 equation. Sodium 02/26/2024 09:31:00 131 Below low normal 135 -146 (mmol/L) Final Potassium 02/26/2024 09:31:00 4.6 3.5-5.1 (m mol/L) Final Cl 02/26/2024 09:31:00 94 Below low normal 98- 107 (mmol/L) Final CO2 02/26/2024 09:31:00 26 22-32 (mmo l/L) Final Anion gap 02/26/2024 09:31:00 11 7-15 (mmol /L) Final Glucose 02/26/2024 09:31:00 112 70-120 (mg /dL) Final Calcium 02/26/2024 09:31:00 9.7 8.4-10.2 ( mg/dL) Final Performing Location [facility] [address] [place] [id number]
--- OUTSIDE RECORDS SUMMARY | 2024-03-05 09:38 | External Medical Summary | Summary of Care ---
Author Name Unknown Organization [facility] Address [address] [place] [address] Phone [phone] Care Team Providers Care Operating Cost Clerk Name Role Phone Rodrigue Cordoba DO Primary Care Provider Reason for Visit * Reason Comments eRx-Medication Refill Encounter Details Date Type Department Care Team (Late st Contact Info) Description 02/25/2024 Refill Family Practice [facility] [address] [place] [address] Rodrigue Cordoba DO [address] [place] [address] HTN, goal below 130/80 Allergies No known active allergiesdocumented as of [...] mRNA, LNP-s, No Pre serve, 2-Dose Series ([employer]) 06/13/2021,10/29/2020,10/08/2020 Pneumococcal Conjugate Vacc, 13 Valent (Prevnar) [...] encounter Miscellaneous Notes * Telephone Encounter - Javid Drake RPh - 02/26/2024 3:14 PM EDTSigned Prescriptions: Disp Refills Losartan Potassium 50 MG Oral Tablet (Coza*90 Tab*2 Sig: TAKE 1 TABLET BY MOUTH EVERY MORNINGAuthorizing Provider: RODRIGUE CORDOBA User: JAVID DRAKE Chlorthalidone 25 MG Oral Tablet (Hygroton)90 Tab*2 Sig: TAKE 1 TABLET BY MOUTH EVERY MORNINGAuthorizing Provider: RODRIGUE CORDOBA User: JAVID DRAKE documented in this encounter Plan of Treatment Upcoming Encounters Date Type Department Care Team (Late st Contact Info) Description 05/19/2024 8:30 AM EDT Office Visit Cardiology, [facility] [address] [place] [address] Sherrie Epperson PA-C [address] [place] [address] 08/17/2024 10:00 AM EST Office Visit Family Practice [facility] [address] [place] [address] Rodriuge Cordoba DO [address] [place] [address] Health Maintenance Due Date Last Done Comments [...] 11/10, 10/11/2023, Additional history exists Albumin/Creatinine Ratio 11/27/20262 024, [...] and were consensually agreed upon. Care Teams Operating Cost Clerk Relationship Specialty Start Date End Date Rodrigue Cordoba DO [address] [address] PCP - General Family Medicine 05/02/21 documented as of this encounter
--- OUTSIDE RECORDS SUMMARY | 2024-03-05 09:38 | External Medical Summary | Summary of Care ---
Author Name Unknown Organization [facility] Address [address] [place] [address] Phone [phone] Care Team Providers Care Oxygen Equipment Preparer Name Role Phone George Cordoba Primary Care Provider Reason for Visit * Reason Onset Date Comments Procedure 02/26/2024 Encounter Details Date Type Department Care Team (Late st Contact Info) Description 02/26/2024 Telephone Cardiology, [facility] [address] [place] [address] Sherrie Epperson PA-C [address] [facility] [place] [address] Procedure Allergies No known active allergiesdocumented as [...] mRNA, LNP-s, No Pre serve, 2-Dose Series ([employer]) 06/13/2021,10/29/2020,10/08/2020 Pneumococcal Conjugate Vacc, 13 Valent (Prevnar) [...] as of this encounter Miscellaneous Notes * Addendum Note - Rosie James RN - 02/26/2024 11:53 AM EDTAddended by: ROSIE JAMES on: 02/26/2024 11:53 AM Modules accepted: Orders * Telephone Encounter - Liban Guzmán RN - 02/26/2024 9:11 AM EDT Patient is scheduled for cardiac cath on 03/05/[address] Marquez at [facility]. She stopped in today for her EKG and pre-op teaching. During her visit today she stated she cannot take the Zetia, It is causing her severe muscle pains. She states she is going to stop it for a week to see if that is theproblem. She will let us know how she makes out. 1). Arrive at [facility] main entrance on 03/05/2024 at 0830 am. [...] 05/19/2024 8:30 AM EDT Office Visit Cardiology, [facility] [address] [place] [address] Sherrie Epperson PA-C [address] [place] [address] 08/17/2024 10:00 AM EST Office Visit Family Practice [facility] [address] [address] George Cordoba DO [address] [place] [address] Scheduled Orders Name Type Priority Associated Diagnoses [...] and were consensually agreed upon. Care Teams Oxygen Equipment Preparer Relationship Specialty Start Date End Date George Cordoba DO [address] [address] PCP - General Family Medicine 05/02/21 documented as of this encounter
--- OUTSIDE RECORDS SUMMARY | 2024-03-05 09:39 | External Medical Summary | Summary of Care ---
Author Name Unknown Organization [facility] Address [address] [place] [address] Phone [phone] Care Team Providers Care Printing Film Stripper Name Role Phone George Cordoba Primary Care Provider Reason for Visit * Reason Comments Follow Up Encounter Details Date Type Department Care Team (Late st Contact Info) Description 02/12/2024 8:30 AM EDT Office Visit Cardiology, [facility] [address] [place] [address] Sherrie Epperson PA-C [address] [place] [address] Abnormal nuclear cardiac imaging test*; Statin intolerance; Dyslipidemia, goal LDL below 70; HTN, goal below 130/80; Chest pain, unspecified type Allergies No known active allergiesdocumented as of [...] mRNA, LNP-s, No Pre serve, 2-Dose Series (Koinify) 06/13/2021,10/29/2020,10/08/2020 Pneumococcal Conjugate Vacc, 13 Valent (Prevnar) [...] on file documented as of this encounter Last Filed Vital Signs Vital Sign Reading Time Taken Comments Blood Pressure 116/74 02/12/2024 8:20 AM EDT Pulse 80 02/12/2024 8:20 AM EDT Temperature - - Respiratory Rate 16 02/12/2024 8:20 AM EDT Oxygen Saturation - - Inhaled Oxygen Concentration - - Weight 103 kg (227 lb) 02/12/2024 8:20 AM EDT Height - - Body Mass Index 42.89 06/04/2023 9:54 AM EDT documented in this encounter Functional Status Functional Status Response [...] No 03/07/2021 documented as of this encounter Patient Instructions * Patient Instructions* Sherrie Epperson PA-C - 02/12/2024 8:59 AM EDT Start Zetia 10 mg - 1 tablet daily Think about the heart catheterization. Let me know if you want to proceed. documented in this encounter Progress Notes * Sherrie Epperson PA-C - 02/12/2024 9:58 AM EDT Cardiology F/U: History of Present Illness: Ashley Mahoney is a 73 year old female here today for close cardiology follow-up. Last clinic evaluation Approximately 3 months ago with the undersigned. History includes: Hypertension Dyslipidemia with prior statin intolerance (atorvastatin) Moderate carotid stenosis R > L Abnormal nuclear lexiscan stress test with anterolateral and apical ischemia Patient previously underwent nuclear lexiscan stress test in November 30, 2023 due to complaints of shortness of breath and substernal chest tightness with exertion. Stress testing was abnormal. At her cardiac visit in November 2023, cardiac catheterization was recommended for further evaluation of underlying ischemic heart disease. Patient declined and wished for ongoing medical therapies. Aspirin 81 mg daily metoprolol was initiated. She declined statin retrial at that time. She was to think about proceeding with cardiac cath, and let clinic know if she wished to proceed. She never contacted us. She presents today feeling "about the same". She notes substernal chest tightness with walking, resolving with rest. This was even reproducible with the walk into the clinic today. She remains hesitant to proceed with cardiac cath. She wants to have her knee replacement. She does admit the metoprolol aided her symptoms No palpitations, dizziness, syncope or near syncope. No orthopnea, PND, or increased lower extremity edema. No fever, chills, cough, hematochezia, melena, or hemoptysis. Review of Systems: See HPI for pertinent positives. All others negative, other than those noted in HPI. Past Medical History: Patient Active Problem List Diagnosis Morbid obesity due to excess calories (HCC) History of hyperparathyroidism HTN, goal below 130/80 Generalized osteoarthritis Myofascial pain syndrome Hypovitaminosis D Primary hyperparathyroidism (HCC) Asymptomatic bilateral carotid artery stenosis Statin intolerance Body mass index (BMI) of 40.0 to 44.9 in adult (HCC) Prediabetes Dyslipidemia, goal LDL below 70 Past Surgical History: Procedure Laterality Date ANESTH, TOTAL KNEE REPLACEMENT Left 2011 EXPLORE PARATHYROID GLANDS N/A 03/07/2021 PARATHYROIDECTOMY performed by Fernando Hampton DO at OR [facility] [place] TONSILLECTOMY PRIMARY/SECONDARY LESS THAN AGE 11 Family History: Family History Problem Relation Name Age of Onset Osteoarthritis Mother Diabetes Father Heart disease Father Social History: Social History Socioeconomic History Marital status: Spouse name: Not on file Number of children: Not on file Years of education: Not on file Highest education level: Not on file Occupational History Not on file Tobacco Use Smoking status: Former Current packs/day: 0.00 Types: Cigarettes Quit date: 1984 Years since quittin.5 Passive exposure: Past Smokeless tobacco: Never Substance and Sexual Activity Alcohol use: Not Currently Drug use: Never Sexual activity: Not on file Other Topics Concern Not on file Social History Narrative Not on file Social Determinants of Health Financial Resource Strain: Not on file Food Insecurity: Not on file Transportation Needs: Not on file Social Connections: Unknown (01/28/2024) Social Connections How often do you feel lonely or isolated from those around you? (Adult - for ages 18 years and over): Not on file Housing Stability: Not on file Allergies: Patient has no known allergies. Medications: Current Outpatient Medications Medication Sig Dispense Refill Centrum Silver 50+Women Oral Tablet Take by mouth. Omeprazole Magnesium 20 MG Oral Tablet Delayed Release Take 1 Tablet by mouth in the morning and 1 Tablet before bedtime. Acetaminophen 325 MG Oral Tablet (Tylenol) Take 2 Tablets by mouth in the morning and 2 Tablets at noon and 2 Tablets before bedtime. Magnesium Oxide 400 MG Oral Capsule Take 1 Capsule by mouth in the morning. Vitamin D3 50 MCG (2000 UT) Oral Capsule Take 1 Capsule by mouth in the morning. Aspirin 81 MG Oral Tablet Delayed Release Take 1 Tablet by mouth in the morning. Tylenol PM Extra Strength 500-25 MG Oral Tablet (diphenhydrAMINE-APAP (sleep)) Take 1 Tablet by mouth at bedtime. Red Yeast Rice 600 MG Oral Tablet Take 2 Tablets by mouth every morning. Docusate Sodium 50 MG Oral Capsule (Colace) Take by mouth 2 times a day. Nutritional Supplement Oral Liquid Take by mouth . Hylands Leg Cramps tablet, 2 tablets at bedtime Chlorthalidone 25 MG Oral Tablet (Hygroton) Take 1 Tablet by mouth in the morning. In the morning..90 Tablet 3 Loratadine 10 MG Oral Tablet (Claritin) Take 1 Tablet by mouth in the morning. Losartan Potassium 25 MG Oral Tablet (Cozaar) Take 1 Tablet by mouth in the morning. 30 Tablet 5 Metoprolol Succinate ER 25 MG Oral Tablet Extended Release 24 Hour (toPROL XL) Take 1 Tablet by mouth in the morning. 30 Tablet 5 Fluticasone Propionate 50 MCG/ACT Nasal Suspension (Flonase) Administer 2 Sprays into each nostril in the morning. 48 g 3 Diclofenac Sodium 75 MG Oral Tablet Delayed Release (Voltaren) Take 1 Tablet by mouth in the morning and 1 Tablet before bedtime. 60 Tablet 5 Ezetimibe 10 MG Oral Tablet (Zetia) Take 1 Tablet by mouth in the morning. 30 Tablet 5 Acetaminophen ER 650 MG Oral Tablet Extended Release Take 1 Tablet by mouth every 8 hours as needed. Ketoconazole 2 % External Cream Apply 2 g topically to affected area in the morning. Apply to area as needed . (Patient not taking: Reported on 02/12/2024) 60 g 3 Nitroglycerin 0.4 MG Sublingual Tablet Sublingual (Nitrostat) Place 1 Tablet under the tongue every5 minutes as needed for Pain, Chest. up to 3 doses in 15 minutes (Patient not taking: Reported on 02/12/2024) No current facility-administered medications for this visit. OBJECTIVE/PHYSICAL EXAMINATION: BP 116/74 (BP Site: Left Arm, BP Position: Sitting, BP Cuff Size: Regular) Comment (BP Site): left lower arm | Pulse 80 | Resp 16 | Wt 103 kg (227 lb) | BMI 42.89 kg/m | BSA 2.11 m General: no acute distress and stated age Eyes: conjunctiva are pink and non-injected, sclera clear Neck: normal jugular venous pulse, no hepatojugular reflux Chest: normal shape and normal respiratory effort Lungs: clear to auscultation and percussion Cardiac Exam: regular heart sounds, no murmurs, rubs, or gallops Abdomen: abdomen soft, non-tender, no abnormal masses and no hepatosplenomegaly Musculoskeletal: no gait disturbance, no weakness Extremities: no edema and no cyanosis Neuro: grossly normal exam Psych: appropriate affect and insight. Data: EKG performed November 30, 2023: NSR at 82 bmp, normal EKG No change from previous Echo report reviewed dated November 2023: Interpretation Summary The qualitative LV ejection fraction is 60-64% (normal). The left ventricular diastolic function is normal. Mild aortic valve sclerosis is present. Mild aortic valve regurgitation is present. Mild mitral regurgitation is present. Mild tricuspid regurgitation is present. There is no evidence of pulmonary hypertension. Nuclear lexiscan stress test report reviewed from November 2023: The two day pharmacologic myocardial perfusion imaging study is abnormal with a moderate-sized reversible anterolateral, apical perfusion defect consistent with ischemia. Gated SPECT imaging reveals normal myocardial thickening and wall motion. The left ventricular ejection fraction can not be calculated due to technical limitations with noted relatively small left ventricular chamber size, however was qualitatively normal, > 60%. EKG reviewed from October 11, 2023: Normal sinus rhythm Low voltage QRS, consider pulmonary disease, pericardial effusion, or normal variant Cannot rule out Inferior infarct , age undetermined Abnormal ECG No previous ECGS available Carotid duplex report reviewed dated Sep 2023: Impression: Right carotid artery duplex examination indicates evidence of 50-69% stenosis of the internal carotid artery. Left carotid artery duplex examination indicates evidence of less than 50% stenosis of the internalcarotid artery. Latest Reference Range & Units 11/28/23 12:29 Triglycerides <=174 mg/dL 158 Cholesterol <200 mg/dL 223 (H) Non-HDL Cholesterol <=159 mg/dL 158 HDL Cholesterol >49 mg/dL 65 LDL Cholesterol <=129 mg/dL 126 (H): Data is abnormally high Latest Reference Range & Units 11/28/23 12:29 Sodium 135 - 146 mmol/L 134 (L) Potassium 3.5 - 5.1 mmol/L 4.1 Chloride 98 - 107 mmol/L 95 (L) CO2 22 - 32 mmol/L 28 BUN 6 - 20 mg/dL 24 (H) Creatinine 0.5 - 1.0 mg/dL 0.9 Estimated Glomerular Filtration Rate >=60 mL/min 64 Anion Gap 7 - 15 mmol/L 11 Glucose 70 - 120 mg/dL 102 Calcium 8.4 - 10.2 mg/dL 9.6 Protein 6.0 - 8.3 g/dL 6.8 Estimated Average Glucose <126 mg/dL 120 (L): Data is abnormally low (H): Data is abnormally high IMPRESSION: 73 year old female ICD-10-CM 1. Abnormal nuclear cardiac imaging test R93.1 2. Statin intolerance Z78.9 3. Dyslipidemia, goal LDL below 70 E78.5 4. HTN, goal below 130/80 I10 5. Chest pain, unspecified type R07.9 RECOMMENDATIONS/PLAN: Once again patient presents today with symptoms concerning for angina/ischemic heart disease with prior abnormal nuclear stress test with reversible ischemia in the anterolateral and apical padilla. She previously declined cath in November 2023. She continues to contemplate proceeding but has not made a decision. She is now on ASA and metoprolol. Addition of metoprolol did aid her symptoms. We discussed proceeding with cath at this time vs ongoing medical management. I once again, recommended proceeding with cardiac catheterization for further evaluation and possible treatment of underlying coronary artery disease. Patient will think about things. She wishes to have her knee replaced. We discussed that she is likely not a surgical candidate for knee replacement surgery until this is further evaluated given her abnormal nuclear stress test and anginal symptoms. She will let clinic know if she wishes to proceed We discussed dyslipidemia and her statin intolerance. She is agreeable to trying Zetia. Likely needs PCSK9 inhib as well, but will initiate one therapy at a time. We discussed initiation of nitrates, but will hold off given lower BP. ER for worsening symptoms Patient Instructions Start Zetia 10 mg - 1 tablet daily Think about the heart catheterization. Let me know if you want to proceed. Patient is being evaluated in the cardiology office for ongoing care/risk management for chest pain; abnormal nuclear stress. I spent a total of 60 minutes on the date of service in preparation, delivery, and documentation ofthe care provided to Ashley Mahoney excluding any time spent in the performance of separately billed services. The patient agrees to the above plan and will call with additional questions or concerns. ER with all emergencies advised. Follow Up: Return in about 3 months (around 05/14/2024). Sherrie Epperson PA-C Department of Cardiology This chart was completed in part utilizing [employer] Speech Voice Recognition Software. Grammatical errors, random word insertions, prounoun errors, and incomplete sentences are an occasional consequence of this system due to software limitations, ambient noise, and hardware issues. Any formal questions or concerns about the content, text, or information contained within the body of this dictation should be directly addressed to the provider for clarification. documented in this encounter Nursing Notes * Liban Guzmán RN - 02/12/2024 8:20 AM EDT Examination Room: room 6 Name: Ashley Mahoney Date of : (1950). Reason for Visit: for follow up Interim Hospitalization(s): denies Problems/Concerns: denies Chest Pain/SOB: denies [facility] Discussed: Not applicable [facility] is a way you can talk to your provider online through e-mail. Would you like to sign up? I can activate it for you? ALREADY ACTIVE Patient was instructed to not get up on the exam table until directed and assisted by their provider; patient is to remain seated in the chair/ wheelchair/ exam table for fall prevention and safety reasons. Patient is aware to have assistance to step down off exam table with personnel. Patient voiced full comprehension of instructions. documented in this encounter Plan of Treatment Upcoming Encounters Date Type Department Care Team (Late st Contact Info) Description 03/10/2024 11:30 AM EDT Office Visit Orthopaedics [facility] [address] [place] [address] Alcon Katz MD [address] [place] [address] 03/17/2024 8:30 AM EDT Office Visit Orthopaedics [facility] [address] [place] [address] Alcon Katz MD [address] [place] [address] 03/27/2024 8:30 AM EDT Office Visit Orthopaedics [facility] [address] [place] [address] Alcon Katz MD [address] [place] [address] 05/19/2024 8:30 AM EDT Office Visit Cardiology, [facility] [address] [place] [address] Sherrie Epperson PA-C [address] [place] [address] 08/17/2024 10:00 AM EST Office Visit Family Practice [facility] [address] [place] [address] George Cordoba DO [address] [place] [address] Health Maintenance Due Date Last Done Comments DTaP,Tdap,and Td Vaccines (1 - Tdap) 1968 Cologuard 1994 Colonoscopy 1994 Fecal Occult Blood Test 1994 Sigmoidoscopy 1994 Zoster Vaccines (2 of 3) 07/26/2015 05/31/2015 COVID-19 Vaccine ( season) 2023 06/13/2021, 10/29/2020, 10/08/2020 Influenza Vaccine (FLU shot) (#1) 2024 GFR 11/27/2024 11/28/2023, 03/08/2023, 05/28/2023, Additional history exists HbA1c 11/27/2024 11/28/2023, [...] Other nonspecific abnormal cardiovascular system function study Statin intolerance Other drug allergy Dyslipidemia, goal LDL below 70 Other and unspecified hyperlipidemia HTN, goal below 130/80 Unspecified essential hypertension Chest pain, unspecified type documented in this encounter Advance Directives * Full Code (Latest Code Status on File) Date Activated Date Inactivated Comments 03/07/2021 1:11 PM 03/08/2021 1:17 PM This order r eflects the patients wishes and were consensually agreed upon. Care Teams Printing Film Stripper Relationship Specialty Start Date End Date George Cordoba DO [address] [place] [address] PCP - General Family Medicine 05/02/21 documented as of this encounter
--- OUTSIDE RECORDS SUMMARY | 2024-03-05 09:39 | External Medical Summary | Summary of Care ---
Author Name Unknown Organization [facility] Address [address] [place] [address] Phone [phone] Care Team Providers Care Disaster Recovery Manager Name Role Phone George Cordoba Primary Care Provider Reason for Visit * Reason Onset Date Comments Med Request 01/16/2024 Encounter Details Date Type Department Care Team (Late st Contact Info) Description 01/16/2024 Telephone Orthopaedics [facility] [email or web address] [place] [address] Alcon Katz MD [address] [facility] [place] [address] Med Request Allergies No known active allergiesdocumented as of this encounter (statuses as of 01/16/2024) Medications Medication Sig Dispensed Refills Start Date End Date Status Centrum Silver 50+Women Oral Tablet Take by mouth. Active Diclofenac Sodium 75 MG Oral Tablet Delayed Release (Voltaren) Take 1 Tablet by mouth in the morning and 1 Tablet before bedtime. Active Omeprazole Magnesium 20 MG Oral Tablet [...] PM Extra Strength 500-25 MG Oral Tablet (diphenhydrAMINE-APA P (sleep)) Take 1 Tablet by mouth at [...] needed . 60 g 3 11/05/2022 Active Chlorthalidone 25 MG Oral Tablet (Hygroton)Indication s:HTN, goal below 130/80 Take 1 Tablet by [...] Active Fluticasone Propionate 50 MCG/ACT Nasal Suspension (Flonase)Indications :Allergic rhinitis, unspecified seasonality, unspecified trigger Administer 2 Sprays into each nostril in the morning. 48 g 3 01/16/2024 Active documented as of this encounter (statuses as of 01/16/2024) Active Problems Problem Noted Date Diagnosed Date [...] as of this encounter (statuses as of 01/16/2024) Immunizations Name Administration Dates Next Due COVID-19 [...] Recorded PHQ Adult Total Score 0 12/07/2023 Sex and Gender Information Value Date Recorded [...] encounter Miscellaneous Notes * Telephone Encounter - Alise Marshall OSA - 01/16/2024 2:06 PM EDT Attempted to reach patient , LMOM relaying Dr. Katz recommendation (Recommend she discuss with PCP. To my knowledge we tend to not recommend prescription or [id number] NSAIDs much at the age of 75 or beyond and she is 73 and 3 months. She also has hypertension Therefore this may not be something they recommend continuing ) Left the message that she may reach out to the office if she has any questions. * Telephone Encounter - Alise Marshall OSA - 01/16/2024 12:00 PM EDT Patient stopped by the office and is requesting that Dr. Katz write a prescription for Diclofenac Sod 75mg Tablet/ she takes 2 a day . Patient was originally prescribed this when she lived in [place]. If prescription is obtainable it may be sent to [facility]. documented in this encounter Plan of Treatment Upcoming Encounters Date Type Department Care Team (Late st Contact Info) Description 02/12/2024 8:30 AM EDT Office Visit Cardiology, [facility] [address] [place] [address] Sherrie Epperson PA-C [address] [place] [address] 03/10/2024 11:30 AM EDT Office Visit Orthopaedics [facility] [address] [place] [address] Alcon Katz MD [address] [place] [address] 03/17/2024 8:30 AM EDT Office Visit Orthopaedics [facility] [address] [place] [address] Alcon Katz MD [address] [place] [address] 03/27/2024 8:30 AM EDT Office Visit Orthopaedics [facility] [address] [place] [address] Alcon Katz MD [address] [place] [address] 08/17/2024 10:00 AM EST Office Visit Family Practice [facility] [address] [place] [address] George Cordoba DO [address] [place] [address] Health Maintenance Due Date Last Done Comments DTaP,Tdap,and Td Vaccines (1 - Tdap) 1968 Cologuard 1994 Colonoscopy 1994 Fecal Occult Blood Test 1994 Sigmoidoscopy 1994 Zoster Vaccines (2 of 3) 07/26/2015 05/31/2015 COVID-19 Vaccine ( season) 2023 06/13/2021, 10/29/2020, 10/08/2020 Influenza Vaccine (FLU shot) (Season Ended) 2024 GFR 11/27/2024 11/28/2023, 03/0 08/2023, 05/28/2023, Additional history exists HbA1c 11/27/2024 11/28/2023, 05/12, 10/29/2022, Additional history exists Depression Screening 12/06/2024 12/07/2023 Albumin/Creatinine Ratio 11/27/20262 024, 05/30/2023, 11/02/2022 DXA Scan Discontinued 12/08/2018, 09/06/2016 Mammogram Discontinued 08/16/2020, 02/09/2020 Pneumococcal Vaccine: 65+ Years Completed 01/30/2021, 01/28/2020 Colorectal Cancer Screening Discontinued GARDASIL-HPV IMMUNIZATION SERIES Aged Out No longer eligible based on patient's age to complete this topic Hepatitis B Aged Out No longer eligi ble based on patient's age to complete this [...] and were consensually agreed upon. Care Teams Disaster Recovery Manager Relationship Specialty Start Date End Date George Cordoba DO [address] [place] [address] PCP - General Family Medicine 05/02/21 documented as of this encounter
--- OUTSIDE RECORDS SUMMARY | 2024-03-05 09:39 | External Medical Summary | Summary of Care ---
Author Name Unknown Organization [facility] Address [address] [place] [address] Phone [phone] Care Team Providers Care Snow Removal/Plowing Name Role Phone Rodrigue Cordoba Primary Care Provider Reason for Visit * Reason Comments NEW PATIENT Echo 11/28/23. Stress Test 11/22/23. Positive stress test. SOB with exertion- described as a feeling like when being outside and breathing in cold air. Ache in chest during this period but after sitting and resting it subsides. Edema in legs ongoing for years and will hurt to touch at times- can not use compression stockings. Palpitations only once in "great jones". Denies any other chest pain and dizziness . * Evaluate & Treat - Unlimited Visits (Within 3 days (urgent)) - Authorized Specialty Diagnoses / Procedures Referred By Contact Referred To Contact Cardiovascular Medicine / Cardiology Diagnoses Positive cardiac stress test SOB (shortness of breath) Em Rosado MD [address] [place] [address] Referral ID Status Reason Start Date Expiration Date Visits Requested Visits Authorized [id number] Authorized Specialty Services Required 11/22/2023 [id number] Encounter Details Date Type Department Care Team (Late st Contact Info) Description 12/04/2023 11:30 AM EDT Office Visit Cardiology, [facility] [address] [place] [address] Sherrie Epperson PA-C [address] [place] [address] Abnormal stress test*; Statin intolerance; HTN, goal below 130/80; Dyslipidemia, goal LDL below 70; Asymptomatic bilateral carotid artery stenosis Allergies No known active allergiesdocumented as of this encounter (statuses as of 12/25/2023) Medications Medication Sig Dispensed Refills Start Date End Date Status Centrum Silver 50+Women Oral Tablet Take by mouth. 0 Active Diclofenac Sodium 75 MG Oral Tablet Delayed Release (Voltaren) Take 1 Tablet by mouth in the morning and 1 Tablet before bedtime. 0 Active Omeprazole Magnesium 20 MG Oral Tablet Delayed Release Take 1 Tablet by mouth in the morning and 1 Tablet before bedtime. 0 Active Acetaminophen 325 MG Oral Tablet (Tylenol) Take 2 Tablets by mouth in the morning and 2 Tablets at noon and 2 Tablets before bedtime. 0 Active Magnesium Oxide 400 MG Oral Capsule Take 1 Capsule by mouth in the morning. 0 Active Vitamin D3 50 MCG (2000 UT) Oral Capsule Take 1 Capsule by mouth in the morning. 0 Active Aspirin 81 MG Oral Tablet Delayed Release Take 1 Tablet by mouth in the morning. 0 Active Tylenol PM Extra Strength 500-25 MG Oral Tablet (diphenhydrAMIN E-APAP (sleep)) Take 1 Tablet by mouth at bedtime. 0 Active Red Yeast Rice 600 MG Oral Tablet Take 2 Tablets by mouth every morning. 0 Active Docusate Sodium 50 MG Oral Capsule (Colace) Take by mouth 2 times a day. 0 Active Acetaminophen ER 650 MG Oral Tablet Extended Release Take 1 Tablet by mouth every 8 hours as needed. 0 Active Nutritional Supplement Oral Liquid Take by mouth . Hylands Leg Cramps tablet, 2 tablets at bedtime 0 Active Ketoconazole 2 % External Cream Apply 2 g topically to affected area in the morning. Apply to area as needed . 60 g 3 11/05/2022 Active Chlorthalidone 25 MG Oral Tablet (Hygroton)Indic ations:HTN, goal below 130/80 Take 1 Tablet by mouth in the morning. In the morning.. 90 Tablet 3 06/04/2023 Active Loratadine 10 MG Oral Tablet (Claritin) Take 1 Tablet by mouth in the morning. 0 Active Losartan Potassium 25 MG Oral Tablet [...] up to 3 doses in 15 minutes 0 12/04/2023 Active Losartan Potassium 50 MG Oral Tablet (Cozaar)Indicat ions:HTN, goal below 130/80 Take 1 Tablet by mouth in the morning. 90 Tablet 3 06/04/2023 4 Discontinued Fish Oil 1000 MG Oral Capsule Take 1 Capsule by mouth in the morning. 0 4 Discontinued(Lacey ent preference/discon tinuation) documented as of this encounter (statuses as of 12/25/2023) Active Problems Problem Noted Date Diagnosed Date [...] as of this encounter (statuses as of 12/25/2023) Immunizations Name Administration Dates Next Due COVID-19 [...] Sign Reading Time Taken Comments Blood Pressure 134/76 12/04/2023 11:26 AM EDT Pulse 84 12/04/2023 11:26 AM EDT Temperature - - Respiratory Rate 16 12/04/2023 11:26 AM EDT Oxygen Saturation - - Inhaled Oxygen Concentration - - Weight 102.5 kg (226 lb) 12/04/2023 11:26 AM EDT Height - - Body Mass Index 42.7 06/04/2023 9:54 AM EDT documented in this [...] No 03/07/2021 documented as of this encounter Progress Notes * Sherrie Epperson PA-C - 12/04/2023 11:23 AM EDT Cardiology Consultation [facility] Reason for Consultation: SOB; CP; Abnormal nuclear lexiscan stress test Provider Requesting Consultation: PCP: RODRIGUE CORDOBA [address] [place] [address] [phone] History of Present Illness: Ashley Mahoney is a 73 year old female here today for cardiology consultation at the request of her PCP office Dr. Rosado and Dr. Cordoba for evaluation of dyspnea/chest tightness History includes: Hypertension Dyslipidemia with prior statin intolerance (atorvastatin) Moderate carotid stenosis R > L She subsequently underwent nuclear lexiscan stress test, ordered by PCP. Nuclear stress testing wasabnormal with moderate size reversible anterolateral and apical perfusion defect consistent with ischemia. She also underwent echo which revealed preserved EF, mild AI, mild MR, mild TR. She presents today to discuss recent results. She notes ongoing shortness of breath with activity. This has progressed over the last several months. She also notes intermittent "ache" in her chest Often with activity such as walking or climbing steps,lasting 5 minutes, and resolves with rest. This began around and persists. Occurs several times per week. Currently in the office she is chest pain free. No palpitations, dizziness, syncope or near syncope. No orthopnea, PND, or increased lower extremity edema. No fever, chills, cough, hematochezia, melena, or hemoptysis. Review of Systems: See HPI for pertinent positives. All others negative, other than those noted in HPI. Past Medical History: Patient Active Problem List Diagnosis Code Morbid obesity due to excess calories ([facility]) E66.01 History of hyperparathyroidism Z86.39 HTN, goal below 130/80 I10 Generalized osteoarthritis M15.9 Myofascial pain syndrome M79.18 Hypovitaminosis D E55.9 Primary hyperparathyroidism ([facility]) E21.0 Carotid stenosis, non-symptomatic, bilateral I65.23 Statin intolerance Z78.9 Body mass index (BMI) of 40.0 to 44.9 in adult ([facility]) Z68.41 Prediabetes R73.03 Past Surgical History: Procedure Laterality Date ANESTH, TOTAL KNEE REPLACEMENT Left 2011 EXPLORE PARATHYROID GLANDS N/A 03/07/2021 PARATHYROIDECTOMY performed by Fernando Hampton DO at [place] [facility] TONSILLECTOMY PRIMARY/SECONDARY LESS THAN AGE 11 Family History: Family History Problem Relation Age of Onset Osteoarthritis Mother Diabetes Father Heart disease Father Social History: Social History Socioeconomic History Marital status: Spouse name: Not on file Number of children: Not on file Years of education: Not on file Highest education level: Not on file Occupational History Not on file Tobacco Use Smoking status: Former Current packs/day: 0.00 Types: Cigarettes Quit date: 1984 Years since quittin.3 Passive exposure: Past Smokeless tobacco: Never Substance and Sexual Activity Alcohol use: Not Currently Drug use: Never Sexual activity: Not on file Other Topics Concern Not on file Social History Narrative Not on file Social Determinants of Health Financial Resource Strain: Not on file Food Insecurity: Not on file Transportation Needs: Not on file Physical Activity: Not on file Stress: Not on file Social Connections: Not on file Intimate Partner Violence: Not on file Housing Stability: Not on file Allergies: Patient has no known allergies. Medications: Current Outpatient Medications Medication Sig Dispense Refill Centrum Silver 50+Women Oral Tablet Take by mouth. Diclofenac Sodium 75 MG Oral Tablet Delayed Release (Voltaren) Take 1 Tablet by mouth in the morning and 1 Tablet before bedtime. Omeprazole Magnesium 20 MG Oral Tablet Delayed Release Take 1 Tablet by mouth in the morning. Acetaminophen 325 MG Oral Tablet (Tylenol) Take by mouth. Magnesium Oxide 400 MG Oral Capsule Take 1 Capsule by mouth in the morning. Vitamin D3 50 MCG (2000 UT) Oral Capsule Take 1 Capsule by mouth in the morning. Aspirin 81 MG Oral Tablet Delayed Release Take 1 Tablet by mouth in the morning. Tylenol PM Extra Strength 500-25 MG Oral Tablet (diphenhydrAMINE-APAP (sleep)) Take 1 Tablet by mouth 3 times a day as needed for Itching. Red Yeast Rice 600 MG Oral Tablet Take 1 Tablet by mouth in the morning and 1 Tablet before bedtime. Docusate Sodium 50 MG Oral Capsule (Colace) Take by mouth 2 times a day. Acetaminophen ER 650 MG Oral Tablet Extended Release Take 1 Tablet by mouth every 8 hours as needed. Nutritional Supplement Oral Liquid Take by mouth . Hylands Leg Cramps tablet, 2 tablets at bedtime Ketoconazole 2 % External Cream Apply 2 g topically to affected area in the morning. Apply to area as needed . 60 g 3 Losartan Potassium 50 MG Oral Tablet (Cozaar) Take 1 Tablet by mouth in the morning. 90 Tablet 3 Chlorthalidone 25 MG Oral Tablet (Hygroton) Take 1 Tablet by mouth in the morning. In the morning..90 Tablet 3 Fish Oil 1000 MG Oral Capsule Take 1 Capsule by mouth in the morning. Loratadine 10 MG Oral Tablet (Claritin) Take 1 Tablet by mouth in the morning. Losartan Potassium 25 MG Oral Tablet (Cozaar) Take 1 Tablet by mouth in the morning. 30 Tablet 5 No current facility-administered medications for this visit. OBJECTIVE/PHYSICAL EXAMINATION: BP 134/76 | Pulse 84 | Resp 16 | Wt 102.5 kg (226 lb) | BMI 42.70 kg/m | BSA 2.1 m General: no acute distress and stated age Eyes: conjunctiva are pink and non-injected, sclera clear Neck: normal jugular venous pulse, no hepatojugular reflux Chest: normal shape and normal respiratory effort Lungs: clear to auscultation and percussion Cardiac Exam: - regular heart sounds, no murmurs, rubs, or gallops Abdomen: abdomen soft, non-tender, no abnormal masses and no hepatosplenomegaly Musculoskeletal: no gait disturbance, no weakness Extremities: no edema and no cyanosis Neuro: grossly normal exam Psych: appropriate affect and insight. Data: EKG performed today and reviewed personally: NSR at 82 bmp, normal EKG No [...] , age undetermined Abnormal ECG No previous ECGs available Carotid duplex report reviewed dated Sep [...] IMPRESSION: 73 year old female ICD-10-CM 1. Statin intolerance Z78.9 2. HTN, goal below 130/80 I10 3. Abnormal stress test R94.39 4. Dyslipidemia, goal LDL below 70 E78.5 5. Asymptomatic bilateral carotid artery stenosis I65.23 RECOMMENDATIONS/PLAN: Patient presenting today with symptoms concerning for angina/ischemic heart disease and abnormal nuclear stress test with reversible ischemia in the anterolateral and apical padilla. Recommend proceeding with cardiac catheterization for further evaluation and possible treatment of underlying coronary artery disease. Patient is hesitant to proceed with invasive procedures at this time We also discussed ongoing medical management to aid her symptoms, however she is still at risk of cardiac event/[place]. Patient prefers medical management, despite discussing risks of untreated CAD. Recommend ASA 81 mg daily, losartan. Add metoprolol 25 mg daily. Needs to reconsider statin, possibly low dose Crestor. Patient wishes to make one change at a time. If she has worsening symptoms, or changes her mind about cardiac cath, she will notify clinic or goto the ER for evaluation with recurrent chest pain. I spent a total of 60 minutes on the date of service in preparation, delivery, and documentation ofthe care provided to Ashley Mahoney excluding any time spent in the performance of separately billed services. The patient agrees to the above plan and will call with additional questions or concerns. ER with all emergencies advised. Follow-up: Return in about 4 weeks (around 01/01/2024). | Check-out note: 4-6 week f/u Sherrie Epperson PA-C Department of Cardiology This chart was completed in part utilizing Interview Master Speech Voice Recognition Software. Grammatical errors, random word insertions, prounoun errors, and incomplete sentences are an occasional consequence of this system due to software limitations, ambient noise, and hardware issues. Any formal questions or concerns about the content, text, or information contained within the body of this dictation should be directly addressed to the provider for clarification. documented in this encounter Procedure Notes * Elijah Rouse MD - 12/04/2023 11:36 AM EDTAssociated Order(s): EKG REASON FOR STUDY: abnormal stress;abnormal stress CONCLUSIONS: Normal sinus rhythm Normal ECG When compared with ECG of 11-Oct-2023 08:47, No significant change was found Ventricular Rate: 82 Atrial Rate: 82 [place] Interval: 170 QRS Duration: 78 QT/QTc: 364/425 ms P-R-T [place]: 38 : 11 : 37 degrees documented in this encounter Nursing Notes * David Tellez LPN - 12/04/2023 11:25 AM EDT Patient identified by full name and date of Chief Complaint Patient presents with NEW PATIENT Echo 11/28/23. Stress Test 11/22/23. Positive stress test. SOB with exertion- described as a feeling like when being outside and breathing in cold air. Ache in chest during this period but after sitting and resting it subsides. Edema in legs ongoing for years and will hurt to touch at times- can not use compression stockings. Palpitations only once in "great jones". Denies any other chest pain and dizziness . Examination Room: 6 Name: Ashley Mahoney Date of : (1950). Reason for Visit: New Patient Interim Hospitalization(s): Denies Problems/Concerns: See chief complaint Chest Pain/SOB: See chief complaint [facility] Discussed: Not applicable [facility] a way you can talk to [...] 02/12/2024 8:30 AM EDT Office Visit Cardiology, [facility] [address] [place] [address] Sherrie Epperson PA-C [address] [place] [address] 08/17/2024 10:00 AM EST Office Visit Family Practice [facility] [address] [place] [address] Rodrigue Cordoba DO [address] [place] [address] Health Maintenance Due Date Last Done Comments DTaP,Tdap,and Td Vaccines (1 - Tdap) 1968 Cologuard 1994 Colonoscopy 1994 Fecal Occult Blood Test 1994 Sigmoidoscopy 1994 Zoster Vaccines (2 of 3) 07/26/2015 05/31/2015 COVID-19 Vaccine ( season) 2023 06/13/2021, 10/29/2020, 10/08/2020 Influenza Vaccine (FLU shot) (Season Ended) 2024 GFR 11/27/2024 11/28/2023, 0308/2023, 05/28/2023, Additional [...] Not on filedocumented as of this encounter Procedures Procedure Name Priority Date/Time Associated Diagnosis Comments OH ECG ROUTINE ECG W/LEAST 12 LDS W/I&R Routine 12/04/2023 11:36 AM EDT Statin intolerance HTN, goal below 130/80 Abnormal stress test documented in this encounter Results * EKG (12/04/2023 11:36 AM EDT) 12/04/2023 11:3 6 AM EDT Narrative Procedure Note Elijah Rouse MD - 12/04/2023 11:36 AM EDT REASON FOR STUDY: abnormal stress;abnormal stress CONCLUSIONS: Normal sinus rhythm Normal ECG When compared with ECG of 11-Oct-2023 08:47, No significant change was found Ventricular Rate: 82 Atrial Rate: 82 [place] Interval: 170 QRS Duration: 78 QT/QTc: 364/425 ms P-R-T [place]: 38 : 11 : 37 degrees Sherrie Epperson PA-C EKG [facility] documented in this encounter Visit Diagnoses Diagnosis Abnormal stress test- Primary Other nonspecific abnormal cardiovascular system function study Statin intolerance Other drug allergy HTN, goal below 130/80 Unspecified essential hypertension Dyslipidemia, goal LDL below 70 Other and unspecified hyperlipidemia Asymptomatic bilateral carotid artery stenosis Occlusion and stenosis of multiple and bilateral precerebral arteries without mention of cerebral infarction documented in this encounter Advance Directives Latest Code Status on File Code Status Date Activated Date Inactivated Comments Full Code 03/07/2021 1:11 PM 03/08/2021 1:17 PM This order reflects the patients wishes and were consensually agreed upon. Care Teams Snow Removal/Plowing Relationship Specialty Start Date End Date Rodrigue Cordoba DO [address] [place] [address] PCP - General Family Medicine 05/02/21 documented as of this encounter
--- OUTSIDE RECORDS SUMMARY | 2024-03-05 09:39 | External Medical Summary | Summary of Care ---
Author Name Unknown Organization [facility] Address [address] [place] [address] Phone [phone] Care Team Providers Care Project Superintendent Name Role Phone George Cordoba Primary Care Provider Reason for Visit * Reason Onset Date Comments Med Request 01/16/2024 Encounter Details Date Type Department Care Team (Late st Contact Info) Description 01/16/2024 Telephone Orthopaedics [facility] [address] [place] [address] Alcon Katz MD [address] [facility] [place] [address] Med Request Allergies No known active allergiesdocumented [...] originally prescribed this when she lived in [place]. If prescription is obtainable it may be sent to [facility]. documented in this encounter Plan of Treatment Upcoming Encounters Date Type Department Care Team (Late st Contact Info) Description 02/12/2024 8:30 AM EDT Office Visit Cardiology, [facility] [address] [place] [address] Sherrie Epperson PA-C [address] [place] [address] 03/10/2024 11:30 AM EDT Office Visit Orthopaedics [facility] [address] [place] [address] Alcon Katz MD [address] [place] [address] 03/17/2024 8:30 AM EDT Office Visit Orthopaedics [facility] [address] [place] [address] Alcon Katz MD [address] [place] [address] 03/27/2024 8:30 AM EDT Office Visit Orthopaedics [facility] [address] [place] [address] Alcon Katz MD [address] [place] [address] 08/17/2024 10:00 AM EST Office Visit Family Practice [facility] [address] [place] [address] George Cordoba DO [address] [place] [address] Health Maintenance Due Date Last Done Comments DTaP,Tdap,and Td Vaccines (1 - Tdap) 1968 Cologuard 1994 Colonoscopy 1994 Fecal Occult Blood Test 1994 Sigmoidoscopy 1994 Zoster Vaccines (2 of 3) 07/26/2015 05/31/2015 COVID-19 Vaccine ( - season) 2023 06/13/2021, 10/29/2020, 10/08/2020 Influenza Vaccine (FLU shot) (Season Ended) 2024 GFR 11/27/2024 11/28/2023, 08/2023, 05/28/2023, Additional [...] and were consensually agreed upon. Care Teams Project Superintendent Relationship Specialty Start Date End Date George Cordoba DO [address] [place] [address] PCP - General Family Medicine 05/02/21 documented as of this encounter
--- OUTSIDE RECORDS SUMMARY | 2024-03-05 09:39 | External Medical Summary | Summary of Care ---
Author Name Unknown Organization [facility] Address [address] [place] [address] Phone [phone] Care Team Providers Care Secretary Of State Name Role Phone George Cordoba DO Primary Care Provider Reason for Visit * Reason Onset Date Comments Health Maintenance 02/12/2024 Encounter Details Date Type Department Care Team (Late st Contact Info) Description 02/12/2024 Telephone Family Practice [facility] [address] [facility] [place] [address] George Cordoba DO [address] [facility] [place] [address] Health Maintenance Allergies No known active allergiesdocumented as of this encounter (statuses as of 02/12/2024) Medications Medication Sig Dispensed Refills Start Date [...] as of this encounter (statuses as of 02/12/2024) Active Problems Problem Noted Date Diagnosed Date [...] as of this encounter (statuses as of 02/12/2024) Immunizations Name Administration Dates Next Due COVID-19 mRNA, LNP-s, No Pre serve, 2-Dose Series ([employer]) 06/13/2021,10/29/2020,10/08/2020 Pneumococcal Conjugate Vacc, 13 Valent (Prevnar) [...] encounter Miscellaneous Notes * Telephone Encounter - Princess Al LPN - 02/12/2024 11:16 AM EDT Care Gaps Comprehensive Care Outreach Last Office/Telemedicine Visit: 01/16/2024 (in office), Visit date not found (telemedicine) Next Office Visit: 08/17/2024 Hemoglobin AIC Results: Lab Results Component Value Date/Time HEMOGLOBIN A1C - [facility] 5.8 (H) 11/28/2023 12:29 PM HEMOGLOBIN A1C - [facility] 5.5 05/28/2023 08:37 AM HEMOGLOBIN A1C - [facility] 5.6 10/29/2022 08:37 AM BP Readings from Last 1 Encounters: 02/12/24 116/74 Reviewed Health Maintenance below: Health Maintenance Topic Date Due DTaP,Tdap,and Td Vaccines (1 - Tdap) Never done Zoster Vaccines (2 of 3) 07/26/2015 COVID-19 Vaccine (4 - season) 2023 Influenza Vaccine (FLU shot) (1) 04/12/2024 Care Gap Outreach Action Taken: Outreach not indicated documented in this encounter Plan of Treatment Upcoming Encounters Date Type Department Care Team (Late st Contact Info) Description 03/10/2024 11:30 AM EDT Office Visit Orthopaedics [facility] [address] [place] [address] Alcon Katz MD [address] [place] [address] 03/17/2024 8:30 AM EDT Office Visit Orthopaedics [facility] [address] [place] [address] Alcon Katz MD [address] [place] [address] 03/27/2024 8:30 AM EDT Office Visit [facility] [address] [place] [address] Alcon Katz MD [address] [place] [address] 05/19/2024 8:30 AM EDT Office Visit Cardiology, [facility] [address] [place] [address] Sherrie Epperson PA-C [address] [place] [address] 08/17/2024 10:00 AM EST Office Visit Family Practice [facility] [address] [facility] [place] [address] George Cordoba DO [address] [place] [address] Health Maintenance Due Date Last Done Comments DTaP,Tdap,and Td Vaccines (1 - Tdap) 1968 Cologuard 1994 Colonoscopy 1994 Fecal Occult Blood Test 1994 Sigmoidoscopy 1994 Zoster Vaccines (2 of 3) 07/26/2015 05/31/2015 COVID-19 Vaccine (4 - 2022-24 season) 2023 06/13/2021, 10/29/2020, 10/08/2020 Influenza Vaccine [...] and were consensually agreed upon. Care Teams Secretary Of State Relationship Specialty Start Date End Date George Cordoba DO [address] [place] [address] PCP - General Family Medicine 05/02/21 documented as of this encounter
--- OUTSIDE RECORDS SUMMARY | 2024-03-05 09:39 | External Medical Summary | Summary of Care ---
Author Name Unknown Organization [facility] Address [address] [place] [address] Phone [phone] Care Team Providers Care Hvac Estimator Name Role Phone George Cordoba Primary Care Provider Reason for Visit * Reason Onset Date Comments Pre Cert/Prior Auth 01/14/2024 Gelsyn Encounter Details Date Type Department Care Team (Late st Contact Info) Description 01/14/2024 Telephone Orthopaedics [facility] [address] [place] [address] Alcon Smith MD [address] [place] [address] Pre Cert/Prior Auth (Gelsyn) Allergies No known active allergiesdocumented as of this encounter (statuses as of 01/15/2024) Medications Medication Sig Dispensed Refills Start Date [...] 3 doses in 15 minutes 12/04/2023 Active Hospital, Clinic, or Other Facility Administered Medication Ordered Dose Route Frequency Start Date End Date Status lidocaine 1% 1 mL - triamcinolone acetonide 40 mg/mL 1 mL inj 2 mLIndications:Primary osteoarthritis of right knee 2 mL IJ ONCE 01/14/2024 01/14/2024 Ended documented as of this encounter (statuses as of 01/15/2024) Active Problems Problem Noted Date Diagnosed Date [...] as of this encounter (statuses as of 01/15/2024) Immunizations Name Administration Dates Next Due COVID-19 [...] encounter Miscellaneous Notes * Telephone Encounter - Ruth Proctor MED ASSIST - 01/14/2024 3:10 PM EDT Orthopaedics Pre-Cert Request Medication/Disease State Information: Medication: Hyaluronate- Gelsyn-3 ([id number]): inject 16.8 mg (2 mL) once weekly for 3 weeks (total of 3 injections). Route to [id number] Is there radiological proof(x-ray, cat scan, mri of osteoarthritis? yesIf yes, date of scan: Has the patient tried physical therapy?yes Has the patient tried tylenol or NSAIDs?yes Has the patient failed corticosteroid injections of the knee?yes Has the patient tried weight loss?no Has the patient tried knee bracing?yes Has the patient tried a home exercise program?no Diagnosis (including ICD-10): Unilateral primary osteoarthritis, right knee- M17.11 Medication(s) Tried/Failed/Contraindicated: See corresponding visit note(s) for additional supporting clinical information. Office Information: Prescriber: alcon smith * Telephone Encounter - Ruth Proctor MED ASSIST - 01/14/2024 3:10 PM EDT ----- Message from Alcon Smith MD sent at 01/14/2024 2:34 PM EDT ----- Regarding: BRISENO injections Please get authorization for Hyaluronic acid injection series (prefer Gelsyn) for R knee. This series was scheduled to start in 6-8 weeks. Will need canceled or rescheduled if authorizationdenied. documented in this encounter Plan of Treatment Upcoming Encounters Date Type Department Care Team (Late st Contact Info) Description 02/12/2024 8:30 AM EDT Office Visit Cardiology, [facility] [address] [place] [address] Sherrie Epperson PA-C [address] [place] [address] 03/10/2024 11:30 AM EDT Office Visit [facility] [address] [place] [address] Alcon Smith MD [address] [place] [address] 03/17/2024 8:30 AM EDT Office Visit [facility] [address] [place] [address] Alcon Smith MD [address] [place] [address] 03/27/2024 8:30 AM EDT Office Visit [facility] [address] [place] [address] Alcon Smith MD [address] [place] [address] 08/17/2024 10:00 AM EST Office Visit Family Practice [facility] [address] [place] [address] George Cordoba DO [address] [place] [address] Health Maintenance Due Date Last Done Comments [...] and were consensually agreed upon. Care Teams Hvac Estimator Relationship Specialty Start Date End Date George Cordoba DO [address] [place] [address] PCP - General Family Medicine 05/02/21 documented as of this encounter
--- OUTSIDE RECORDS SUMMARY | 2024-03-05 09:39 | External Medical Summary | Summary of Care ---
Author Name Unknown Organization [facility] Address [address] [place] [address] Phone [phone] Care Team Providers Care Electronic Operator Name Role Phone George Cordoba Primary Care Provider Reason for Visit * Reason Onset Date Comments Med Request 01/14/2024 Encounter Details Date Type Department Care Team (Late st Contact Info) Description 01/14/2024 Telephone Orthopaedics [facility] [address] [place] [address] Alcon Smith MD [address] [facility] [place] [address] Med Request Allergies No known active allergiesdocumented as of this encounter (statuses as of 01/14/2024) Medications Medication Sig Dispensed Refills Start Date [...] right knee 2 mL IJ ONCE 01/14/2024 01/15/2024 Active documented as of this encounter (statuses as of 01/14/2024) Active Problems Problem Noted Date Diagnosed Date [...] as of this encounter (statuses as of 01/14/2024) Immunizations Name Administration Dates Next Due COVID-19 [...] weeks (total of 3 injections). Route to [id number] Is there radiological proof(x-ray, cat scan, mri [...] 02/12/2024 8:30 AM EDT Office Visit Cardiology, [facility] [address] [place] [address] Sherrie Epperson PA-C [address] [place] [address] 03/10/2024 11:30 AM EDT Office Visit [facility] [address] [place] [address] Alcon Smith MD [address] [place] [address] 03/17/2024 8:30 AM EDT Office Visit [facility] [address] [place] [address] Alcon Smith MD [address] [place] [address] 03/27/2024 8:30 AM EDT Office Visit [facility] [address] [place] [address] Alcon Smith MD [address] [place] [address] 08/17/2024 10:00 AM EST Office Visit Family Practice [facility] [address] [place] [address] George Cordoba DO [address] [place] [address] Health Maintenance Due Date Last Done Comments [...] and were consensually agreed upon. Care Teams Electronic Operator Relationship Specialty Start Date End Date George Cordoba DO [address] [place] [address] PCP - General Family Medicine 05/02/21 documented as of this encounter
--- OUTSIDE RECORDS SUMMARY | 2024-03-05 09:39 | External Medical Summary | Summary of Care ---
Author Name Unknown Organization [facility] Address [address] [place] [address] Phone [phone] Care Team Providers Care Machine Printer Hose Name Role Phone George Cordoba Primary Care Provider Reason for Visit * Reason Onset Date Comments Pre Cert/Prior Auth 01/14/2024 Gelsyn Encounter Details Date Type Department Care Team (Late st Contact Info) Description 01/14/2024 Telephone Orthopaedics [facility] [address] [place] [address] Alcon Smith MD [address] [place] [address] Pre Cert/Prior Auth (Gelsyn) Allergies No known [...] encounter Miscellaneous Notes * Telephone Encounter - Mitzy Jimenez OSA - 01/15/2024 5:47 AM EDT SEE REFERRAL MESSAGE * Telephone Encounter - Ruth Proctor MED ASSIST - 01/14/2024 3:10 PM EDT Orthopaedics Pre-Cert Request Medication/Disease State Information: Medication: Hyaluronate- Gelsyn-3 (J7328): inject 16.8 mg (2 mL) once weekly for 3 weeks (total of 3 injections). Route to [id number] Is there radiological proof(x-ray, cat scan, mri [...] 02/12/2024 8:30 AM EDT Office Visit Cardiology, [facility] [address] [place] [address] Sherrie Epperson PA-C [address] [place] [address] 03/10/2024 11:30 AM EDT Office Visit Orthopaedics [facility] [address] [place] [address] Alocn Smith MD [address] [place] [address] 03/17/2024 8:30 AM EDT Office Visit Orthopaedics [facility] [address] [place] [address] Alcon Smith MD [address] [place] [address] 03/27/2024 8:30 AM EDT Office Visit Orthopaedics [facility] [address] [place] [address] Alcon Smith MD [address] [place] [address] 08/17/2024 10:00 AM EST Office Visit Family Practice [facility] [address] [place] [address] George Cordoba DO [address] [place] [address] Health Maintenance Due Date Last Done Comments DTaP,Tdap,and Td Vaccines (1 - Tdap) 1968 Cologuard 1994 Colonoscopy 1994 Fecal Occult Blood Test 1994 Sigmoidoscopy 1994 Zoster Vaccines (2 of 3) 07/26/2015 05/31/2015 COVID-19 Vaccine ( season) 2023 06/13/2021, 10/29/2020, 10/08/2020 Influenza Vaccine (FLU shot) (Season Ended) 2024 GFR 11/27/2024 11/28/2023, 030 08/2023, 05/28/2023, Additional history exists HbA1c 11/27/2024 [...] and were consensually agreed upon. Care Teams Machine Printer Hose Relationship Specialty Start Date End Date George Cordoba DO [address] [place] [address] PCP - General Family Medicine 05/02/21 documented as of this encounter
--- OUTSIDE RECORDS SUMMARY | 2024-03-05 09:39 | External Medical Summary | Summary of Care ---
Author Name Unknown Organization [facility] Address [address] [place] [address] Phone [phone] Care Team Providers Care Cinder Pit Crane Operator Name Role Phone George Cordoba DO Primary Care Provider Reason for Visit * Reason Onset Date Comments Test Results 10/21/2023 Encounter Details Date Type Department Care Team (Late st Contact Info) Description 10/21/2023 Telephone Family Practice [facility] [address] [facility] [place] [address] [facility] Cordoba [facility] [address] [facility] [address] Test Results Allergies No known active allergiesdocumented as of this encounter (statuses as of 01/20/2024) Medications Medication Sig Dispensed Refills Start Date [...] the morning. 30 Tablet 5 10/11/2023 Active documented as of this encounter (statuses as of 01/20/2024) Active Problems Problem Noted Date Diagnosed Date [...] as of this encounter (statuses as of 01/20/2024) Immunizations Name Administration Dates Next Due COVID-19 mRNA, LNP-s, No Pre serve, 2-Dose Series ([employer] ([place])) 06/13/2021,10/29/2020,10/08/2020 Pneumococcal Conjugate Vacc, 13 Valent (Prevnar) [...] encounter Miscellaneous Notes * Telephone Encounter - Rosie SandovalMADINA - 10/21/2023 2:33 PM EDT Who is Requesting Test Results: patient Primary Care Provider : George Cordoba DO Tests Results Requested : Labwork and CT results Date of Test : 10/11/23 & 10/18/23 Location of Test: [facility] Ordering Provider: Dr Rosado Patient has been made aware that the turnaround time for test results are typically as follows: Laboratory results = within 2-3 days ([facility]), 3-5 days (Non[facility], ie. [facility]) Urine Cultures = within 2-3 days depending on growth within the culture Pathology results (biopsy results/PAP) = 1-2 weeks Radiology results = about 1 week Cologuard results = within 2 weeks from the shipment date COVID testing = about 24 hours documented in this encounter Plan of Treatment Upcoming Encounters Date Type Department Care Team (Late st Contact Info) Description 02/12/2024 8:30 AM EDT Office Visit Cardiology, [facility] [address] [place] [address] Sherrie Epperson PA-C [address] [place] [address] 03/10/2024 11:30 AM EDT Office Visit Orthopaedics [facility] [address] [place] [address] Alcon Katz MD [address] [place] [address] 03/17/2024 8:30 AM EDT [facility] [address] [place] [address] Alcon Katz MD [address] [place] [address] 03/27/2024 8:30 AM EDT Office Visit Orthopaedics [facility] [address] [place] [address] Alcon Katz MD [address] [place] [address] 08/17/2024 10:00 AM EST Office Visit Family Practice [facility] [address] [place] [address] George Cordoba DO [address] [place] [address] Health Maintenance Due Date Last Done Comments [...] and were consensually agreed upon. Care Teams Cinder Pit Crane Operator Relationship Specialty Start Date End Date George Cordoba DO [address] [place] [address] PCP - General Family Medicine 05/02/21 documented as of this encounter
--- OUTSIDE RECORDS SUMMARY | 2024-03-05 09:39 | External Medical Summary | Summary of Care ---
Author Name Unknown Organization [facility] Address [address] [place] [address] Phone [phone] Care Team Providers Care Swing Saw Operator Name Role Phone George Cordoba Primary Care Provider Reason for Visit * Reason Comments NEW PATIENT Knee Pain R knee Encounter Details Date Type Department Care Team (Latest Contact Info) Description 01/14/2024 1:45 PM EDT Office Visit Orthopaedics [facility] [address] [place] [address] Alcon Katz MD [address] [place] [address] Chronic pain of right knee*; Primary osteoarthritis of right knee Allergies No known active allergiesdocumented as of [...] as of this encounter Progress Notes * Alcon Katz MD - 01/14/2024 2:08 PM EDT Ashley Mahoney [id number] Ashley Mahoney is a 73 year old female who presents for consultation to [facility] Orthopaedics and Sports Medicine for right knee injury/pain. Consult requested by George Cordoba DO. Ashley Mahoney is here unaccompanied Quality: reviewed and agree with Nursing Notes for HPI elements History: History - Presents to [facility] (Walk[facility]in Clinic). 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 Owens; Pt stated she has 3 mos relief from steroid ROS: ROS per HPI otherwise non-contributory Past Medical History: Diagnosis Date GERD (gastroesophageal reflux disease) Hypertension Family History Problem Relation Name Age of Onset Osteoarthritis Mother Diabetes Father Heart disease Father Social History Socioeconomic History Marital status: Spouse name: Not on file Number of children: Not on file Years of education: Not on file Highest education level: Not on file Occupational History Not on file Tobacco Use Smoking status: Former Current packs/day: 0.00 Types: Cigarettes Quit date: 1984 Years since quittin.4 Passive exposure: Past Smokeless tobacco: Never Substance [...] on file Housing Stability: Not on file Physical Exam Constitutional: Generally well-nourished and in no acute distress Psychiatric: Mood and Affect normal Eyes: EOMI Respiratory: Normal respiratory effort with regular rate and rhythm Cardiovascular: No edema in the affected extremity(s) Knee Exam, Bilateral Inspection: Alignment: Normal Bilateral Effusion: Negative Bilateral Palpation: Pain greatest across lateral joint but also patellar facets ROM: Flexion/Neutral/Extension: R - 100/0/0 Positive crepitus Radiology: 01/14/2024: Four view x-ray of the right knee Tricompartmental osteoarthritis greatest in the lateral and patellofemoral compartments where it issevere - per my interpretation. Awaiting formal radiology interpretation. Assessment and Plan: 1) chronic right knee pain Secondary to DJD which is severe in the lateral Intra-articular steroid injection performed today 01/14/2024. No patient has had these previously from an outside office and they have helped but for temporary time. . It has been years since she had viscosupplementation I recommend she try that in 6-8 weeks. Depending on response she has to the intra-articular steroid injection I performed would consider attempting ultrasound guidance. Recommended 3 shot series We also discussed possibility of referral to pain management for evaluation for RFA and surgical referral. Patient does not desire surgical referral yet. She also does not desire physical therapy referral. Procedure note (knee injection), right : Time out: Prior to injection, a time out was called to confirm the administration of appropriate medicine, patient name, procedure and confirm to the best of our ability and knowledge the presence of any necessary risks and benefits. Patient verbalizes understanding. Sterile techinique applied. Skin sterilized with alcohol swab. Knee injected using 1.5 inch, 22 gauge needle. Injected with 2 ml lidocaine 1%, triamcinolone acetonide 40mg/ml 1 ml. Patient tolerated procedure with no significant bleeding or adverse reaction. Patient instructed to call or return to clinic for fever or warmth and redness at injection site for potential infection. Patient also advised as to potential for steroid flare reaction including increased pain and redness at injection site which should be treated with ice and resolve within 24 hours. 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 Owens; Pt stated she has 3 mos relief from steroid Claudine Pierson LPN documented in this encounter Plan of Treatment Upcoming Encounters Date Type Department Care Team (Late st Contact Info) Description 02/12/2024 8:30 AM EDT Office Visit Cardiology, [facility] [address] [place] [address] Sherrie Epperson PA-C [address] [place] [address] 03/10/2024 11:30 AM EDT Office Visit Orthopaedics [facility] [address] [place] [address] Alcon Katz MD [address] [place] [address] 03/17/2024 8:30 AM EDT Office Visit Orthopaedics [facility] [address] [place] [address] Alcon Katz MD [address] [place] [address] 03/27/2024 8:30 AM EDT Office Visit Orthopaedics [facility] [address] [place] [address] Alcon Katz MD [address] [place] [address] 08/17/2024 10:00 AM EST Office Visit Family Practice [facility] [address] [place] [address] George Cordoba DO [address] [place] [address] Pending Results Name Type Priority Associated Diagnoses Date /Time XR KNEE 4 OR MORE VIEWS Medical Imaging Routine Chronic pain of right knee 01/14/2024 2:17 PM EDT Health Maintenance Due Date Last Done Comments DTaP,Tdap,and Td Vaccines (1 - Tdap) 1968 Cologuard 1994 Colonoscopy 1994 Fecal Occult Blood Test 1994 Sigmoidoscopy 1994 Zoster Vaccines (2 of 3) 07/26/2015 05/31/2015 COVID-19 Vaccine ( season) 2023 06/13/2021, 10/29/2020, 10/08/2020 Influenza Vaccine (FLU shot) (Season Ended) 2024 GFR 11/27/2024 11/28/2023, 03/08/2023, 05/28/2023, Additional [...] as of this encounter Visit Diagnoses Diagnosis Chronic pain of right knee- Primary Primary osteoarthritis of right knee Primary localized osteoarthrosis, lower leg documented in this encounter Advance Directives * Full Code (Latest Code Status on File) Date Activated Date Inactivated Comments 03/07/2021 1:11 PM 03/08/2021 1:17 PM This order r eflects the patients wishes and were consensually agreed upon. Care Teams Swing Saw Operator Relationship Specialty Start Date End Date George Cordoba DO [address] [place] [address] PCP - General Family Medicine 05/02/21 documented as of this encounter
--- OUTSIDE RECORDS SUMMARY | 2024-03-05 09:39 | External Medical Summary | Summary of Care ---
Author Name Unknown Organization [facility] Address [address] [place] [address] Phone [phone] Care Team Providers Care Registered Nurse Practitioner Name Role Phone George Cordoba Primary Care Provider Reason for Visit * Reason Comments NEW PATIENT Knee Pain R knee Encounter Details Date Type Department Care Team (Latest Contact Info) Description 01/14/2024 1:45 PM EDT Office Visit Orthopaedics [facility] [address] [place] [address] Alcon Katz MD [address] [place] [address] Chronic pain of right knee*; Primary osteoarthritis [...] - 01/14/2024 2:08 PM EDT Ashley Mahoney [id number] Ashley Mahoney is a 73 year old female who presents for consultation to [facility] Orthopaedics and Sports Medicine for right [...] Katz MD Primary Care Sports Medicine Orthopaedics [address] [address] documented in this encounter Nursing Notes * [...] 02/12/2024 8:30 AM EDT Office Visit Cardiology, [facility] [address] [place] [address] Sherrie Epperson PA-C [address] [place] [address] 03/10/2024 11:30 AM EDT Office Visit Orthopaedics [facility] [address] [place] [address] Alcon Katz MD [address] [place] [address] 03/17/2024 8:30 AM EDT Office Visit Orthopaedics [facility] [address] [place] [address] Alcon Katz MD [address] [place] [address] 03/27/2024 8:30 AM EDT Office Visit Orthopaedics [facility] [address] [place] [address] Alcon Katz MD [address] [place] [address] 08/17/2024 10:00 AM EST Office Visit Family Practice [facility] [address] [place] [address] George Cordoba DO [address] [place] [address] Pending Results Name Type Priority Associated Diagnoses [...] osteoarthrosis, lower leg documented in this encounter Administered Medications Inactive Administered Medications - up to 3 most recent administrations Medication Order MAR Action Action Date Dose Rate Site lidocaine 1% 1 mL - triamcinolone acetonide 40 mg/mL 1 mL inj 2 mL 2 mL, Injection, ONCE, On Tu01/14/24 at 1530, For 1 dose, Lidocaine 1% 1mL Triamcinolone Acetonide 40 mg/mL 1 mL (Final concentration = 20 mg/mL) REFRIGERATE and SHAKE WELL Given 01/14/2024 4:11 PM EDT 2 mL Knee Right documented in this encounter Advance Directives * Full Code (Latest Code Status on File) Date Activated Date Inactivated Comments 03/07/2021 1:11 PM 03/08/2021 1:17 PM This order r eflects the patients wishes and were consensually agreed upon. Care Teams Registered Nurse Practitioner Relationship Specialty Start Date End Date George Cordoba DO [address] [place] [address] PCP - General Family Medicine 05/02/21 documented as of this encounter
--- OUTSIDE RECORDS SUMMARY | 2024-03-05 09:39 | External Medical Summary | Summary of Care ---
Author Name Unknown Organization [facility] Address [address] [place] [address] Phone [phone] Care Team Providers Care Hydraulic Chair Assembler Name Role Phone George Cordoba DO Primary Care Provider Reason for Visit * Reason Comments Short of Breath SOB noted upon exert ion and occasionally when at rest x 3 months since having cough. Cough productive x 3 months, green phlegm on/off x 3 months. Pt questions if sx related to allergies. SOB has slightly improved over past 2 wks, Continues claritin daily. Encounter Details Date Type Department Care Team (Late st Contact Info) Description 01/16/2024 11:40 AM EDT Office Visit [facility] [place] [address] George Cordoba DO [address] [facility] [place] [address] Allergic rhinitis, unspecified seasonality, unspecified trigger*; Body mass index (BMI) of 40.0 to 44.9 in adult (HCC) Allergies No known active allergiesdocumented as [...] mRNA, LNP-s, No Pre serve, 2-Dose Series (Spectrum Mobile) 06/13/2021,10/29/2020,10/08/2020 Pneumococcal Conjugate Vacc, 13 Valent (Prevnar) 01/28/2020 Pneumococcal Polysaccharide PPV23 (Pneumovax) 01/30/2021 Varicella Zoster Vaccine (Adult) 05/31/2015 documented as of this encounter Social History Tobacco Use Types Packs/Day Years Used Date Smoking Tobacco: Former Cigarettes Q uit: 1985 Passive Smoke Exposure: Past Smokeless Tobacco: Never Tobacco Cessation:Counseling Given: Not Answered Alcohol Use Standard Drinks/Week Comments Not Currently [...] Sign Reading Time Taken Comments Blood Pressure 124/70 01/16/2024 11:35 AM EDT Pulse 89 01/16/2024 11:35 AM EDT Temperature 36.4 C (97.6 F) 01/16/2024 11:35 AM E DT Respiratory Rate 16 01/16/2024 11:35 AM EDT Oxygen Saturation 98% 01/16/2024 11:35 AM EDT Inhaled Oxygen Concentration - - Weight 102.5 kg (226 lb) 01/16/2024 11:35 AM EDT Height - - Body Mass [...] as of this encounter Progress Notes * George Cordoba, - 01/16/2024 11:51 AM EDT Images from the original note were not included. Assessment and Plan Allergic rhinitis, unspecified seasonality, unspecified trigger Looks to me like allergic rhinitis with post nasal drip Would recommend initiating flonase and using 1-2 times daily, 2 sprays per nostril - in past this gave her headaches, but should be better if she sprays towards ear - could also try alternative of nasonex - Fluticasone Propionate 50 MCG/ACT Nasal Suspension (Flonase); Administer 2 Sprays into each nostril in the morning. Body mass index (BMI) of 40.0 to 44.9 in adult (HCC) educated History of Present Illness Ashley Mahoney is a 73 year old female that presents for Short of Breath (SOB noted upon exertion andoccasionally when at rest x 3 months since having cough. Cough productive x 3 months, green phlegm on/off x 3 months. Pt questions if sx related to allergies. SOB has slightly improved over past 2 wks, Continues claritin daily.) Physical Exam Vitals: 01/16/24 1135 Temp: 36.4 C (97.6 F) Pulse: 89 Resp: 16 SpO2: 98% BP: 124/70 Physical Exam Constitutional: Appearance: Normal appearance. HENT: Head: Normocephalic and atraumatic. Nose: Mucosal edema, congestion and rhinorrhea present. Eyes: Extraocular Movements: Extraocular movements intact. Pupils: Pupils are equal, round, and reactive to light. Cardiovascular: Rate and Rhythm: Normal rate and regular rhythm. Pulmonary: Breath sounds: No decreased breath sounds, wheezing or rhonchi. Neurological: General: No focal deficit present. Mental Status: She is alert and oriented to person, place, and time. Psychiatric: Mood and Affect: Mood normal. Behavior: Behavior normal. Wrap-Up Time Total time today was 20 minutes excluding any time spent in the performance of separately billed services. documented in this encounter Nursing Notes * Belen Mello LPN - 01/16/2024 11:41 AM EDT The patient has been properly identified by confirmation of name and date of . Chief Complaint Patient presents with Short of Breath SOB noted upon exertion and occasionally when at rest x 3 months since having cough. Cough productive x 3 months, green phlegm on/off x 3 months. Pt questions if sx related to allergies. SOB has slightly improved over past 2 wks, Continues claritin daily. documented in this encounter Plan of Treatment Upcoming Encounters Date Type Department Care Team (Late st Contact Info) Description 02/12/2024 8:30 AM EDT Office Visit Cardiology, [facility] [address] [place] [address] Sherrie Epperson PA-C [address] [place] [address] 03/10/2024 11:30 AM EDT Office Visit Orthopaedics [facility] [place] [address] Alcon Katz MD [address] [place] [address] 03/17/2024 8:30 AM EDT Office Visit [facility] [address] [place] [address] Alcon Katz MD [address] [place] [address] 03/27/2024 8:30 AM EDT Office Visit [facility] [address] [place] [address] Alcon Katz MD [address] [place] [address] 08/17/2024 10:00 AM EST Office Visit Family Practice [facility] [address] [place] [address] George Cordoba DO [address] [place] [address] Health Maintenance Due Date Last Done Comments [...] as of this encounter Visit Diagnoses Diagnosis Allergic rhinitis, unspecified seasonality, unspecified trigger- Primary Body mass index (BMI) of 40.0 to 44.9 in adult (HCC) documented in this encounter Advance Directives * Full Code (Latest Code Status on File) Date Activated Date Inactivated Comments 03/07/2021 1:11 PM 03/08/2021 1:17 PM This order r eflects the patients wishes and were consensually agreed upon. Care Teams Hydraulic Chair Assembler Relationship Specialty Start Date End Date George Cordoba DO [address] [place] [address] PCP - General Family Medicine 05/02/21 documented as of this encounter
--- OUTSIDE RECORDS SUMMARY | 2024-03-05 09:40 | External Medical Summary | Summary of Care ---
Author Name Unknown Organization [facility] Address [address] [place] [address] Phone [phone] Care Team Providers Care Shoemaker Custom Name Role Phone Nara Cordobar Juanis Primary Care Provider Reason for Referral * Evaluate & Treat - Unlimited Visits (Within 3 days (urgent)) - Authorized Specialty Diagnoses / Procedures Referred By Contact Referred To Contact Cardiovascular Medicine / Cardiology Diagnoses Positive cardiac stress test SOB (shortness of breath) Em Rosado MD [address] [place] [address] Referral ID Status Reason Start Date Expiration Date Visits Requested Visits Authorized [id number] Authorized Specialty Services Required 11/22/2023 999 999 Question Answer Referral Priority Within 3 days (urgent) Where should this appointment be scheduled? [facility] To which of the following clinics are you referring your patient? General Cardiology Clinic * Precert (Within 24 hrs (call dept; emergent)) - Authorized Specialty Diagnoses / Procedures Referred By Contac t Referred To Contact Cardiac Studies Diagnoses Positive cardiac stress test SOB (shortness of breath) Procedures ECHO, COMPLETE (2D), TRANS-THORACIC Em Rosado MD [address] [place] [address] Referral ID Status Reason Start Date Expiration Date V isits Requested Visits Authorized [id number] Authorized Precert 11/22/2023 999 999 Encounter Details Date Type Department Care Team (Late st Contact Info) Description 11/22/[address] [facility] [address] [place] [address] Em Rosado MD [address] [place] [address] Allergies No known active allergiesdocumented as of this encounter (statuses as of 11/22/2023) Medications Medication Sig Dispensed Refills Start Date End Date Status Centrum Silver 50+Women Oral Tablet Take by mouth. 0 Active Diclofenac Sodium 75 MG Oral Tablet Delayed Release (Voltaren) Take 1 Tablet by mouth in the morning and 1 Tablet before bedtime. 0 Active Omeprazole Magnesium 20 MG Oral Tablet Delayed Release Take 1 Tablet by mouth in the morning. 0 Active Acetaminophen 325 MG Oral Tablet (Tylenol) Take by mouth. 0 Active Magnesium Oxide 400 MG Oral [...] P (sleep)) Take 1 Tablet by mouth 3 times a day as needed for Itching. 0 Active Red Yeast Rice 600 MG Oral Tablet Take 1 Tablet by mouth in the morning and 1 Tablet before bedtime. 0 Active Docusate Sodium 50 MG Oral [...] needed . 60 g 3 11/05/2022 Active Losartan Potassium 50 MG Oral Tablet (Cozaar)Indications: HTN, goal below 130/80 Take 1 Tablet by mouth in the morning. 90 Tablet 3 06/04/2023 Active Chlorthalidone 25 MG Oral Tablet (Hygroton)Indication s:HTN, goal below 130/80 Take 1 Tablet by mouth in the morning. In the morning.. 90 Tablet 3 06/04/2023 Active Fish Oil 1000 MG Oral Capsule Take 1 Capsule by mouth in the morning. 0 Active Loratadine 10 MG Oral Tablet (Claritin) Take 1 Tablet by mouth in the morning. 0 Active Losartan Potassium 25 MG Oral Tablet (Cozaar) Take 1 Tablet by mouth in the morning. 30 Tablet 5 10/11/2023 Active documented as of this encounter (statuses as of 11/22/2023) Active Problems Problem Noted Date Diagnosed Date Body mass index (BMI) of 40.0 to 44.9 in adult 0 10/22/2022 Overview: Per Obesity protocol Prediabetes 10/22/2022 Overview: Per Prediabetes protocol Carotid stenosis, non-symptomatic, bilateral Statin intolerance 11/08/2021 Primary hyperparathyroidism 10/31/2021 Morbid obesity due to excess calories 05/02/2021 History of hyperparathyroidism 05/02/2021 HTN, goal below 130/80 05/02/2021 Generalized osteoarthritis 05/02/2021 Myofascial pain syndrome 05/02/2021 Hypovitaminosis D 05/02/2021 documented as of this encounter (statuses as of 11/22/2023) Immunizations Name Administration Dates Next Due COVID-19 mRNA, LNP-s, No Pre serve, 2-Dose Series (Exhbit) 06/13/2021,10/29/2020,10/08/2020 Pneumococcal Conjugate Vacc, 13 Valent (Prevnar) [...] Date Recorded PHQ Adult Total Score 0 05/02/2021 Sex and Gender Information Value Date Recorded [...] encounter Miscellaneous Notes * Telephone Encounter - Em Rosado MD - 11/22/2023 12:43 PM EDT Please schedule with cardio ( Dr whyte contacted me for positive cardiac stress test ) And also needs 2D echo anytime soon documented in this encounter Plan of Treatment Upcoming Encounters Date Type Department Care Team (Late st Contact Info) Description 12/07/2023 8:20 AM EDT Office Visit Family Practice [facility] [address] [place] [address] George Cordoba DO [address] [place] [address] Scheduled Orders Name Type Priority Associated Diagnoses Orde r Schedule ECHO, COMPLETE (2D), TRANS-THORACIC Echocardiology STAT Positive cardiac stress test SOB (shortness of breath) Expected: 11/22/2023, Expires: 12/21/2025 Scheduled Referrals Name Type Priority Associated Diagnoses Orde r Schedule CARDIOLOGY REFERRAL OP Referral Within 3 days (urgent) Positive cardiac stress test SOB (shortness of breath) Ordered: 11/22/2023 Health Maintenance Due Date Last Done Comments DTaP,Tdap,and Td Vaccines (1 - Tdap) 1968 Cologuard 1994 Colonoscopy 1994 Fecal Occult Blood Test 1994 Sigmoidoscopy 1994 Zoster Vaccines (2 of 3) 07/26/2015 05/31/2015 Depression Screening 05/02/2022 05/02/2021 COVID-19 Vaccine (4 - season) 2023 06/13/2021, 10/29/2020, 10/08/2020 Influenza Vaccine (FLU shot) (Season Ended) 2024 HbA1c 05/28/2024 05/28/2023, 10/11, 04/24/2022, Additional history exists GFR 10/10/2024 10/11/2023, 05/12, 10/29/2022, Additional history exists Albumin/Creatinine Ratio 05/30/2026 05/30/2023, 10/11 DXA Scan Discontinued 12/08/2018, 09/06/2016 Mammogram Discontinued [...] as of this encounter Visit Diagnoses Diagnosis Positive cardiac stress test- Primary Other nonspecific abnormal cardiovascular system function study SOB (shortness of breath) Shortness of breath documented in this encounter Advance Directives Latest Code Status on File Code Status Date Activated Date Inactivated Comments Full Code 03/07/2021 1:11 PM 03/08/2021 1:17 PM This order reflects the patients wishes and were consensually agreed upon. Care Teams Shoemaker Custom Relationship Specialty Start Date End Date George Cordoba DO [address] [place] [address] PCP - General Family Medicine 05/02/21 documented as of this encounter
--- OUTSIDE RECORDS SUMMARY | 2024-03-05 09:40 | External Medical Summary | Summary of Care ---
Author Name Unknown Organization [facility] Address [address] [place] [address] Phone [phone] Care Team Providers Care Retail Product Advisor Name Role Phone Nara Cordobar Juanis Primary Care Provider Reason for Referral * Evaluate & Treat - Unlimited Visits (Within 3 days (urgent)) - Authorized Specialty Diagnoses / Procedures Referred By Contact Referred To Contact Cardiovascular Medicine / Cardiology Diagnoses Positive cardiac stress test SOB (shortness of breath) Em Rosado MD [address] [place] [address] Referral ID Status Reason Start Date Expiration Date Visits Requested Visits Authorized [id number] Authorized Specialty Services Required 11/22/2023 999 999 [...] ECHO, COMPLETE (2D), TRANS-THORACIC Em Rosado MD [address] [place] [address] Referral ID Status Reason Start Date Expiration Date V isits Requested Visits Authorized [id number] Authorized Precert 11/22/2023 999 999 Encounter Details Date Type Department Care Team (Late st Contact Info) Description 11/22/2023 Telephone [facility] [address] [place] [address] Em Rosado MD [address] [place] [address] Allergies No known active allergiesdocumented [...] mRNA, LNP-s, No Pre serve, 2-Dose Series (CoolClouds) 06/13/2021,10/29/2020,10/08/2020 Pneumococcal Conjugate Vacc, 13 Valent (Prevnar) [...] 8:20 AM EDT Office Visit Family Practice [facility] [address] [place] [address] George Cordoba DO [address] [place] [address] Scheduled Orders Name Type Priority Associated Diagnoses [...] and were consensually agreed upon. Care Teams Retail Product Advisor Relationship Specialty Start Date End Date George Cordoba DO [address] [place] [address] PCP - General Family Medicine 05/02/21 documented as of this encounter
--- OUTSIDE RECORDS SUMMARY | 2024-03-05 09:40 | External Medical Summary | Summary of Care ---
Author Name Unknown Organization [facility] Address [address] [place] [address] Phone [phone] Care Team Providers Care Chemical Sales Representative Name Role Phone George Cordoba DO Primary Care Provider Encounter Details Date Type Department Care Team (Late st Contact Info) Description 11/25/2023 Telephone Family Practice [facility] [address] [facility] [place] [address] George Cordoba DO [address] [facility] [place] [address] Allergies No known active allergiesdocumented as of this encounter (statuses as of 11/25/2023) Medications Medication Sig Dispensed Refills Start Date [...] as of this encounter (statuses as of 11/25/2023) Active Problems Problem Noted Date Diagnosed Date [...] as of this encounter (statuses as of 11/25/2023) Immunizations Name Administration Dates Next Due COVID-19 mRNA, LNP-s, No Pre serve, 2-Dose Series ([place]) 06/13/2021,10/29/2020,10/08/2020 Pneumococcal Conjugate Vacc, 13 Valent (Prevnar) [...] encounter Miscellaneous Notes * Telephone Encounter - George Cordoba DO - 11/25/2023 2:34 PM EDT ----- Message from [place] DO sent at 11/22/2023 11:29 AM EDT ----- Regarding: abnormal nuclear stress test Dr Rosado and Dr Cordoba, Just wanted to alert you of abnormal nuclear stress test on this pt. Recommend cardiology consult. I you can place an order for a resting echo also to facilitate next step with workup that would be much appreciated. Thanks, Josemanuel documented in this encounter Plan of Treatment Upcoming Encounters Date Type Department Care Team (Late st Contact Info) Description 11/28/2023 11:30 AM EDT Cardiac Studies Cardiac Studies, [facility] [address] [place] [address] 12/04/2023 11:30 AM EDT Office Visit Cardiology, [facility] [address] [place] [address] Sherrie Epperson PA-C [address] [place] [address] 12/07/2023 8:20 AM EDT Office Visit Family Practice [facility] [address] [place] [address] George Cordoba DO [address] [place] [address] Health Maintenance Due Date Last Done Comments [...] study documented in this encounter Advance Directives Latest Code Status on File Code Status Date Activated Date Inactivated Comments Full Code 03/07/2021 1:11 PM 03/08/2021 1:17 PM This order reflects the patients wishes and were consensually agreed upon. Care Teams Chemical Sales Representative Relationship Specialty Start Date End Date George Cordoba DO [address] [place] [address] PCP - General Family Medicine 05/02/21 documented as of this encounter
--- OUTSIDE RECORDS SUMMARY | 2024-03-05 09:40 | External Medical Summary ---
Author Name Unknown Address Unknown Organization [id number]:[facility] - [address] [facility] [address] Laboratory Report Ordering Provider Test Date Status GABRIELLE HUSAIN 11/28/2023 12:29:08 Final Observation Date Value Abnormality Reference (Units ) Status Triglyceride 11/28/2023 12:29:08 158 <=174 ( mg/dL) Final Triglyceride Reference Range s (mg/dL):
<150 Acceptable
150-174 Borderline high
175-499 High
>=500 Very high Cholesterol 11/28/2023 12:29:08 223 Above high normal <200 (mg/dL) Final Total Cholesterol Reference Ranges (mg/dL):
<200 Desirable
200-239 Borderline high
>=240 High HDL 11/28/2023 12:29:08 65 >49 (mg/dL ) Final HDL Cholesterol Reference Ra nges (mg/dL):
>=60 High (Desirable)
<50 Low (Undesirable) For Females
<40 Low (Undesirable) For Males NON-HDL CHOLESTEROL 11/28/2023 12:29:08 158 <=159 (mg/dL) Final Non-HDL Cholesterol Referenc e Range (mg/dL):
<100 Target level for high risk ASCVD patient
<130 Optimal for general population
130-159 Near optimal for general population
160-189 Borderline High
190-219 High
>=220 Very High LDL, (calculated) 11/28/2023 12:29:08 126 <= 129 (mg/dL) Final LDL Cholesterol Reference Ra nges (mg/dL):
<70 Target level for high risk ASCVD patient
<100 Optimal for general population
100-129 Near optimal for general population
130-159 Borderline high
160-189 High
>=190 Very high Performing Location [facility] - [address] [facility] [address]
--- OUTSIDE RECORDS SUMMARY | 2024-03-05 09:40 | External Medical Summary ---
Author Name Unknown Address Unknown Organization K0G:[facility] - [address] [place] [address] Laboratory Report Ordering Provider Test Date Status GABRIELLE HUSAIN 11/28/2023 12:29:08 Final Observation Date Value Abnormality Reference (Units ) Status SYNC LEUKOCYTES IN BLOOD BY AUTOMATED COUNT 11/28/2023 12:29:08 10.01 4.00-10.80 (K/uL) Final Segs 11/28/2023 12:29:08 72.2 40.0-75.0 (%) Final Lymphs % 11/28/2023 12:29:08 17.9 Below low normal 18.0-42.0 (%) Final Monos 11/28/2023 12:29:08 7.4 1.0-11.0 (%) Final Eosinophils 11/28/2023 12:29:08 2.1 0.0-6.0 (%) Final Basos 11/28/2023 12:29:08 0.4 0.0-2.0 (%) Final Absolute Segs 11/28/2023 12:29:08 7.23 1.80-7.70 (K/uL) Final Lymphs, absolute 11/28/2023 12:29:08 1.79 1.00-4.80 (K/ul) Final Monos, Abs 11/28/2023 12:29:08 0.74 0.00-1.10 (K/uL) Final Eos, Abs 11/28/2023 12:29:08 0.21 0.00-0.70 (K/uL) Final Basos, Abs 11/28/2023 12:29:08 0.04 0.00-0.20 (K/uL) Final Performing Location [facility] - [address] [place] [address]
--- OUTSIDE RECORDS SUMMARY | 2024-03-05 09:40 | External Medical Summary | Summary of Care ---
Author Name Unknown Organization [facility] Address [address] [place] [address] Phone [phone] Care Team Providers Care Enterprise Engineer Name Role Phone George Cordoba Primary Care Provider Reason for Visit * Reason Comments Outpatient Testing Encounter Details Date Type Department Care Team (Late st Contact Info) Description 11/28/2023 1:00 PM EDT Laboratory Laboratory, [facility] [address] [place] [address] [facility] [address] [place] [address] HTN, goal below 130/80; Dyslipidemia, goal LDL below 100; Prediabetes Allergies No known active allergiesdocumented as of this encounter (statuses as of 11/28/2023) Medications Medication Sig Dispensed Refills Start Date [...] as of this encounter (statuses as of 11/28/2023) Active Problems Problem Noted Date Diagnosed Date [...] as of this encounter (statuses as of 11/28/2023) Immunizations Name Administration Dates Next Due COVID-19 [...] 12/04/2023 11:30 AM EDT Office Visit Cardiology, [facility] [address] [place] [address] Sherrie Epperson PA-C [address] [place] [address] 12/07/2023 8:20 AM EDT Office Visit Family [facility] [address] [place] [address] George Cordoba, [address] [place] [address] Pending Results Name Type Priority Associated Diagnoses Date /Time CBC WITH WBC DIFFERENTIAL Lab Routine HTN, goal below 130/80 11/28/2023 12:29 PM EDT COMPREHENSIVE METABOLIC PANEL Lab Routine HTN, goal below 130/80 Dyslipidemia, goal LDL below 100 11/28/2023 12:29 PM EDT HEMOGLOBIN A1C Lab Routine Prediabetes 11/28/2023 12:29 PM EDT LIPID PANEL WITH DIRECT LDL IF TG IS HIGH Lab Routine Dyslipidemia, goal LDL below 100 11/28/2023 12:29 PM EDT CBC Lab Routine HTN, goal below 130/80 11/28/2023 12:29 PM EDT DIFFERENTIAL, AUTOMATED Lab Routine HTN, goal below 130/80 11/28/2023 12:29 PM EDT ALBUMIN / CREATININE RATIO, URINE Lab Routine HTN, goal below 130/80 11/28/2023 12:31 PM EDT Health Maintenance Due Date Last [...] Unspecified essential hypertension Dyslipidemia, goal LDL below 100 Other and unspecified hyperlipidemia Prediabetes Other abnormal glucose documented in this encounter Advance Directives Latest Code Status on File Code Status Date Activated Date Inactivated Comments Full Code 03/07/2021 1:11 PM 03/08/2021 1:17 PM This order reflects the patients wishes and were consensually agreed upon. Care Teams Enterprise Engineer Relationship Specialty Start Date End Date George Cordoba DO [address] [place] [address] PCP - General Family Medicine 05/02/21 documented as of this encounter
--- OUTSIDE RECORDS SUMMARY | 2024-03-05 09:40 | External Medical Summary ---
Author Name Unknown Address Unknown Organization K0G:[facility] - [address] [place] [address] Laboratory Report Ordering Provider Test Date Status GABRIELLE HUSAIN 11/28/2023 12:29:08 Final Observation Date Value Abnormality Reference (Units ) Status BUN 11/28/2023 12:29:08 24 Above high normal 6-20 (mg/dL) Final Creatinine 11/28/2023 12:29:08 0.9 0.5-1.0 (mg/dL) Final Glomerular filtration rate/1.73 sq M.predicted [Volume Rate/Area] in Serum, Plasma or Blood by Creatinine-based formula (CKD-EPI) 11/28/2023 12:29:08 64 >=60 (mL/min) Final eGFR is calculated based on the CKD-EPI 2020 equation Sodium 11/28/2023 12:29:08 134 Below low normal 135 -146 (mmol/L) Final Potassium 11/28/2023 12:29:08 4.1 3.5-5.1 (m mol/L) Final Cl 11/28/2023 12:29:08 95 Below low normal 98- 107 (mmol/L) Final CO2 11/28/2023 12:29:08 28 22-32 (mmo l/L) Final Anion gap 11/28/2023 12:29:08 11 7-15 (mmol /L) Final Glucose 11/28/2023 12:29:08 102 70-120 (mg /dL) Final Albumin 11/28/2023 12:29:08 4.4 3.8-5.0 (g /dL) Final AST (Aspartate aminotransferase) 11/28/2023 12:29:08 13 10-35 (U/L) Fin al Alk Phos 11/28/2023 12:29:08 100 35-130 (U/ L) Final Bilirubin, Total 11/28/2023 12:29:08 0.5 <=1 .2 (mg/dL) Final Calcium 11/28/2023 12:29:08 9.6 8.4-10.2 ( mg/dL) Final Protein 11/28/2023 12:29:08 6.8 6.0-8.3 (g /dL) Final ALT (Alanine aminotransferase) 11/28/2023 12:29:08 18 10-35 (U/L) [place]ford navarrete Performing Location [facility] - [address] [place] [address]
--- OUTSIDE RECORDS SUMMARY | 2024-03-05 09:40 | External Medical Summary | Summary of Care ---
Author Name Unknown Organization [facility] Address [address] [place] [address] Phone [phone] Care Team Providers Care Cook Specialty Foreign Food Name Role Phone Nara Cordobar Juanis Primary Care Provider Reason for Referral * Evaluate & Treat - Unlimited Visits (Within 3 days (urgent)) - Authorized Specialty Diagnoses / Procedures Referred By Contact Referred To Contact Cardiovascular Medicine / Cardiology Diagnoses Positive cardiac stress test SOB (shortness of breath) Em Rosado MD [address] [place] [address] Referral ID Status Reason Start Date Expiration Date Visits Requested Visits Authorized [id number] Authorized Specialty Services Required 11/22/2023 999 999 [...] ECHO, COMPLETE (2D), TRANS-THORACIC Em Rosado MD [address] [place] [address] Referral ID Status Reason Start Date Expiration Date V isits Requested Visits Authorized [id number] Authorized Precert 11/22/2023 999 999 Encounter Details Date Type Department Care Team (Late st Contact Info) Description 11/22/2023 Telephone [facility] [address] [place] [address] Em Rosado MD [address] [place] [address] Allergies No known active allergiesdocumented [...] mRNA, LNP-s, No Pre serve, 2-Dose Series ([employer]) 06/13/2021,10/29/2020,10/08/2020 Pneumococcal Conjugate Vacc, 13 Valent (Prevnar) [...] 8:20 AM EDT Office Visit Family Practice [facility] [address] [place] [address] George Cordoba DO [address] [address] Scheduled Orders Name Type Priority Associated Diagnoses [...] and were consensually agreed upon. Care Teams Cook Specialty Foreign Food Relationship Specialty Start Date End Date George Cordoba DO [address] [place] [address] PCP - General Family Medicine 05/02/21 documented as of this encounter
--- OUTSIDE RECORDS SUMMARY | 2024-03-05 09:40 | External Medical Summary | Summary of Care ---
Author Name Unknown Organization [facility] Address [address] [place] [address] Phone [phone] Care Team Providers Care Acidizer Name Role Phone George Cordoba DO Primary Care Provider Reason for Visit * Reason Onset Date Comments Appointment 11/22/2023 Cardio Appt Encounter Details Date Type Department Care Team (Late st Contact Info) Description 11/22/2023 Telephone Family Practice [facility] [address] [place] [address] George Cordoba DO [address] [facility] [place] [address] Appointment (Cardio Appt) Allergies No known active allergiesdocumented as of [...] encounter Miscellaneous Notes * Telephone Encounter - Gregory Dorsey OSA - 11/22/2023 4:14 PM EDT Patient is aware of the ECHO appt. Thank you. * Telephone Encounter - Rosie Verde RN - 11/22/2023 4:07 PM EDT Spoke with Dr. Bay, patient scheduled for echo 11/28/23; need echo for further assessment. New patient evaluation to be scheduled after echo obtained. Will review schedules at beginning of next week for any new patient opens; none available at this time. In meantime, patient should report to ER with any significant symptoms. Is patient aware of results/current echo appointment? * Telephone Encounter - Gregory Dorsey OSA - 11/22/2023 3:03 PM EDT Please advise, I have no openings for the three day. Even imaging days, if patient can wait, I can place on a CLOS RET/REL thank you. * Telephone Encounter - Maria G Alcantara OSA - 11/22/2023 2:44 PM EDT Please call patient to schedule 3 day urgent Cardio appt per referral. Dx: Positive cardiac stress test [R94.39] - Primary SOB (shortness of breath) [R06.02] Thank you. documented in this encounter Plan of Treatment Upcoming Encounters Date Type Department Care Team (Late st Contact Info) Description 11/28/2023 11:30 AM EDT [facility] [address] [address] 12/07/2023 8:20 AM EDT Office Visit Family Practice [facility] [address] [address] George Cordoba DO [address] [address] Health Maintenance Due Date Last Done Comments [...] filedocumented as of this encounter Advance Directives Latest Code Status on File Code Status Date Activated Date Inactivated Comments Full Code 03/07/2021 1:11 PM 03/08/2021 1:17 PM This order reflects the patients wishes and were consensually agreed upon. Care Teams Acidizer Relationship Specialty Start Date End Date George Cordoba DO [address] [address] PCP - General Family Medicine 05/02/21 documented as of this encounter
--- OUTSIDE RECORDS SUMMARY | 2024-03-05 09:40 | External Medical Summary | Summary of Care ---
Author Name Unknown Organization [facility] Address [address] [place] [address] Phone [phone] Care Team Providers Care Foundry Melt Supervisor Name Role Phone Nara Cordobar Juanis Primary Care Provider Reason for Referral * Evaluate & Treat - Unlimited Visits (Within 3 days (urgent)) - Authorized Specialty Diagnoses / Procedures Referred By Contact Referred To Contact Cardiovascular Medicine / Cardiology Diagnoses Positive cardiac stress test SOB (shortness of breath) Em Rosado MD [address] [place] [address] Referral ID Status Reason Start Date Expiration Date Visits Requested Visits Authorized [id number] Authorized Specialty Services Required 11/22/2023 999 999 [...] ECHO, COMPLETE (2D), TRANS-THORACIC Em Rosado MD [address] [place] [address] Referral ID Status Reason Start Date Expiration Date V isits Requested Visits Authorized [id number] Authorized Precert 11/22/2023 999 999 Encounter Details Date Type Department Care Team (Late st Contact Info) Description 11/22/2023 Telephone [facility] [address] [place] [address] Em Rosado MD [address] [place] [address] Allergies No known active allergiesdocumented [...] mRNA, LNP-s, No Pre serve, 2-Dose Series ([employer]) 06/13/2021,10/29/2020,10/08/2020 Pneumococcal Conjugate Vacc, 13 Valent (Prevnar) [...] encounter Miscellaneous Notes * Telephone Encounter - Maria G Alcantara OSA - 11/22/2023 3:01 PM EDT A separate encounter has already been sent to Nurse pool for appt. 11/22/2023 * Telephone Encounter - Em Rosado MD - 11/22/2023 12:43 PM EDT Please schedule with cardio ( Dr whyte contacted me for positive cardiac stress test ) And also needs 2D echo anytime soon documented in this encounter Plan of Treatment Upcoming Encounters Date Type Department Care Team (Late st Contact Info) Description 11/28/2023 11:30 AM EDT Cardiac Studies Cardiac Studies, [facility] [address] [address] 12/07/2023 8:20 AM EDT Office Visit Family Practice [facility] [address] [address] George Cordoba, [address] [address] Scheduled Orders Name Type Priority Associated Diagnoses [...] 05/31/2015 Depression Screening 05/02/2022 05/02/2021 COVID-19 Vaccine ( season) 2023 06/13/2021, 10/29/2020, [...] and were consensually agreed upon. Care Teams Foundry Melt Supervisor Relationship Specialty Start Date End Date George Cordoba DO [address] [place] [address] PCP - General Family Medicine 05/02/21 documented as of this encounter
--- OUTSIDE RECORDS SUMMARY | 2024-03-05 09:40 | External Medical Summary ---
Author Name Unknown Address Unknown Organization [id number]:[facility] [place] [address] - [address] [place] [id number] Laboratory Report Ordering Provider Test Date Status GABRIELLE HUSAIN 11/28/2023 12:29:08 Final Observation Date Value Abnormality Reference (Units ) Status WBC, Total 11/28/2023 12:29:08 10.01 4.00-10.8 0 (K/uL) Final RBC 11/28/2023 12:29:08 4.67 3.85-5.15 (M/uL) Final Hemoglobin 11/28/2023 12:29:08 13.3 12.0-15.3 (g/dL) Final HCT 11/28/2023 12:29:08 41.2 36.0-45.2 (%) Final MCV 11/28/2023 12:29:08 88.2 81.5-97.5 (fL) Final MCH 11/28/2023 12:29:08 28.5 27.0-34.0 (pg) Final MCHC 11/28/2023 12:29:08 32.3 32.0-36.0 (g/dL) Final RDW 11/28/2023 12:29:08 13.2 11.5-15.5 (%) Final Platelets 11/28/2023 12:29:08 365 140-400 (K /uL) Final MPV 11/28/2023 12:29:08 8.9 6.6-11.1 ( fL) Final Performing Location [facility] [place] [address] - [address] [place] [id number]
--- OUTSIDE RECORDS SUMMARY | 2024-03-05 09:40 | External Medical Summary | Summary of Care ---
Author Name Unknown Organization [facility] Address [address] [place] [address] Phone [phone] Care Team Providers Care Neon Glass Blower Name Role Phone George Cordoba DO Primary Care Provider Reason for Visit * Reason Onset Date Comments Appointment 11/22/2023 Cardio Appt Encounter Details Date Type Department Care Team (Late st Contact Info) Description 11/22/2023 Telephone Family Practice [facility] [address] [place] [address] George Cordoba DO [address] [facility] [place] [address] Appointment (Cardio Appt) Allergies No known active allergiesdocumented as of this encounter (statuses as of 11/26/2023) Medications Medication Sig Dispensed Refills Start Date [...] as of this encounter (statuses as of 11/26/2023) Active Problems Problem Noted Date Diagnosed Date [...] as of this encounter (statuses as of 11/26/2023) Immunizations Name Administration Dates Next Due COVID-19 [...] Miscellaneous Notes * Telephone Encounter - Rosie Verde RN - 11/26/2023 9:39 AM EDT Patient scheduled for new patient evaluation 12/04/23 with Sherrie Epperson PA-C. * Telephone Encounter - Gregory Dorsey OSA [...] 11:30 AM EDT Cardiac Studies Cardiac Studies, [address] [place] [address] 12/04/2023 11:30 AM EDT Office Visit Cardiology, [address] [place] [address] Sherrie Epperson, TRISHA [address] [address] 12/07/2023 8:20 AM EDT Office Visit [facility] [address] [place] [address] George Cordoba, [address] [place] [address] Health Maintenance Due Date Last Done Comments [...] and were consensually agreed upon. Care Teams Neon Glass Blower Relationship Specialty Start Date End Date George Cordoba DO [address] [address] PCP - General Family Medicine 05/02/21 documented as of this encounter
--- OUTSIDE RECORDS SUMMARY | 2024-03-05 09:40 | External Medical Summary ---
Author Name Unknown Address Unknown Organization [id number]:LABORATORY [facility] - [address] [place] [address] Laboratory Report Ordering Provider Test Date Status RODRIGUEGABRIELLE DARLING 11/28/2023 12:29:08 Final Observation Date Value Abnormality Reference (Units ) Status HbA1C 11/28/2023 12:29:08 5.8 Above high normal 4. 0-5.6 (%) Final The use of HbA1c to monitor glycemic status is based on normal hemoglobin and HbA composition. This test should not be used in patients with abnormal hemoglobin that affects the half life of the red blood cell or the in vivo glycation rates. Glucose, estimated average 11/28/2023 12:29:08 120 <126 (mg/dL) Final Performing Location [facility]ORY [facility] - [address] [place] [address]
--- OUTSIDE RECORDS SUMMARY | 2024-03-05 09:40 | External Medical Summary | Summary of Care ---
Author Name Unknown Organization [facility] Address [address] [place] [address] Phone [phone] Care Team Providers Care Transportation Aide Name Role Phone George Cordoba Primary Care Provider Encounter Details Date Type Department Care Team (Late st Contact Info) Description 11/19/2023 Orders Only Unspecified Department Em Rosado MD [address] [place] [address] Allergies No known active allergiesdocumented [...] mRNA, LNP-s, No Pre serve, 2-Dose Series ([employer]) 06/13/2021,10/29/2020,10/08/2020 Pneumococcal Conjugate Vacc, 13 Valent (Prevnar) [...] 8:20 AM EDT Office Visit Family Practice [facility] [address] [address] George Cordoba, [address] [address] Health Maintenance Due Date Last Done Comments [...] Procedure Name Priority Date/Time Associated Diagnosis Comments NM MYOCARDIAL PERFUSION IMAGING SPECT MULTIPLE STUDIES WITH PHARMACOLOGIC INTERVENTION Routine 11/19/2023 7:57 AM EDT documented in this encounter Results * NM MYOCARDIAL PERFUSION IMAGING SPECT MULTIPLE STUDIES WITH PHARMACOLOGIC INTERVENTION (11/19/2023 7:57 AM EDT) 11/19/2023 7:57 AM EDT Em Rosado MD RAD NUCLEAR [facility] documented in this encounter Advance Directives Latest Code Status on File Code Status Date Activated Date Inactivated Comments Full Code 03/07/2021 1:11 PM 03/08/2021 1:17 PM This order reflects the patients wishes and were consensually agreed upon. Care Teams Transportation Aide Relationship Specialty Start Date End Date George Cordoba DO [address] [address] PCP - General Family Medicine 05/02/21 documented as of this encounter
--- OUTSIDE RECORDS SUMMARY | 2024-03-05 09:40 | External Medical Summary ---
Author Name Unknown Address Unknown Organization K01:LABORATORY [facility] - [address] [place] [address] Laboratory Report Ordering Provider Test Date Status GABRIELLE HUSAIN 11/28/2023 12:31:15 Final Normal: <30 mg/g creatinine< br/>High: 30-300 mg/g creatinine
Very High: >300 mg/g creatinine
Nephrotic: >2200 mg/g creatinine Observation Date Value Abnormality Reference (Units) Status Albumin, Urine 11/28/2023 12:31:15 <1.20 (mg/dL) Final Creatinine, Urine 11/28/2023 12:31:15 26 (mg/dL) Final ALBUMIN/CREATININE RATIO, HIDE 11/28/2023 12:31:15 Uninterpretable Albumin/Creatinine ratio due to very low albumin and creatinine values. <30 (mg/g Creat) Final Performing Location [facility] - [address] [place] [address]
--- OUTSIDE RECORDS SUMMARY | 2024-03-05 09:40 | External Medical Summary | Summary of Care ---
Author Name Unknown Organization [facility] Address [address] [place] [address] Phone [phone] Care Team Providers Care Section Laborer Name Role Phone George Cordoba DO Primary Care Provider Reason for Visit * Reason Comments Return Visit Pt here for 6 mo ret urn. Resolving SOB per pt as she states she has been seen for this for the past month since starting Metoprolol 25 mg. Encounter Details Date Type Department Care Team (Latest Contact Info) Description 12/07/2023 8:20 AM EDT Office Visit Family [facility] [address] [place] [address] George Cordoba, [address] [facility] [place] [address] HTN, goal below 130/80*; Primary hyperparathyroidism (HCC); Prediabetes; Morbid obesity due to excess calories (HCC); Dyslipidemia, goal LDL below 100 Allergies No known active allergiesdocumented as of this encounter (statuses as of 12/07/2023) Medications Medication Sig Dispensed Refills Start Date [...] PM Extra Strength 500-25 MG Oral Tablet (diphenhydrAMINE -APAP (sleep)) Take 1 Tablet by mouth at [...] 11/05/2022 Active Chlorthalidone 25 MG Oral Tablet (Hygroton)Indica tions:HTN, goal below 130/80 Take 1 Tablet by [...] Active Losartan Potassium 50 MG Oral Tablet (Cozaar)Indicati ons:HTN, goal below 130/80 Take 1 Tablet by mouth in the morning. 90 Tablet 3 06/04/2023 12/07/2023 Discontinued documented as of this encounter (statuses as of 12/07/2023) Active Problems Problem Noted Date Diagnosed Date [...] as of this encounter (statuses as of 12/07/2023) Immunizations Name Administration Dates Next Due COVID-19 mRNA, LNP-s, No Pre serve, 2-Dose Series ([employer]) 06/13/2021,10/29/2020,10/08/2020 Pneumococcal Conjugate Vacc, 13 Valent (Prevnar) [...] Sign Reading Time Taken Comments Blood Pressure 122/68 12/07/2023 8:14 AM EDT Pulse 66 12/07/2023 8:14 AM EDT Temperature 36.1 C (97 F) 12/07/2023 8:14 AM EDT Respiratory Rate 16 12/07/2023 8:14 AM EDT Oxygen Saturation 99% 12/07/2023 8:14 AM EDT Inhaled Oxygen Concentration - - Weight 102.1 kg (225 lb 2 oz) 12/07/2023 8:14 AM EDT Height - - Body Mass Index 42.54 06/04/2023 9:54 AM EDT documented in this [...] encounter Progress Notes * George Cordoba, - 12/07/2023 8:31 AM EDT Images from the original note were not included. Assessment and Plan HTN, goal below 130/80 Mild CMP changes associated likely with thiazide diuretic Will monitor and follow No need for medication change at this time - CBC WITH WBC DIFFERENTIAL; Future - COMPREHENSIVE METABOLIC PANEL; Future - ALBUMIN / CREATININE RATIO, URINE; Future Primary hyperparathyroidism (HCC) Prediabetes - COMPREHENSIVE METABOLIC PANEL; Future - HEMOGLOBIN A1C; Future Morbid obesity due to excess calories (HCC) Dyslipidemia, goal LDL below 100 Consider low dose statin? Lovalo? - COMPREHENSIVE METABOLIC PANEL; Future - LIPID PANEL WITH DIRECT LDL IF TG IS HIGH; Future History of Present Illness Ashley Mahoney is a 73 year old female that presents for Return Visit (Pt here for 6 mo return. Resolving SOB per pt as she states she has been seen for this for the past month since starting Metoprolol 25 mg.) Presents today in f/u Doing better already with SOB Reports improved activity tolerance And is hopeful this will allow her to get out side more this summer Labs are back for review Physical Exam Vitals: 12/07/23 0814 Temp: 36.1 C (97 F) Pulse: 66 Resp: 16 SpO2: 99% BP: 122/68 Physical Exam Vitals and nursing note reviewed. Constitutional: Appearance: Normal appearance. HENT: Head: Normocephalic and atraumatic. Right Ear: Tympanic membrane, ear canal and external ear normal. There is no impacted cerumen. Left Ear: Tympanic membrane, ear canal and external ear normal. There is no impacted cerumen. Nose: Nose normal. Mouth/Throat: Mouth: Mucous membranes are moist. Pharynx: Oropharynx is clear. Eyes: Extraocular Movements: Extraocular movements intact. Conjunctiva/sclera: Conjunctivae normal. Pupils: Pupils are equal, round, and reactive to light. Cardiovascular: Rate and Rhythm: Normal rate and regular rhythm. Heart sounds: Normal heart sounds. Pulmonary: Effort: Pulmonary effort is normal. Breath sounds: Normal breath sounds. Abdominal: General: Abdomen is flat. Palpations: Abdomen is soft. Musculoskeletal: General: Normal range of motion. Cervical back: Normal range of motion and neck supple. Lymphadenopathy: Cervical: No cervical adenopathy. Skin: General: Skin is warm and dry. Neurological: General: No focal deficit present. Mental Status: She is alert and oriented to person, place, and time. Wrap-Up Follow-up: Return in about 6 months (around 06/07/2024). | Check-out note: Schedule ahead, every 6 months - ok to offer Rita Jones for next visit if that's needed for 6 months Time: Total time today was 41 minutes excluding any time spent in the performance of separately billed services. documented in this encounter Nursing Notes * Belen Mello LPN - 12/07/2023 8:14 AM EDT The patient has been properly identified by confirmation of name and date of . Chief Complaint Patient presents with Return Visit Pt here for 6 mo return. Resolving SOB per pt as she states she has been seen for this for the pastmonth. documented in this encounter Plan of Treatment Upcoming Encounters Date Type Department Care Team (Late st Contact Info) Description 02/12/2024 8:30 AM EDT Office Visit Cardiology, [facility] [address] [place] [address] Sherrie Epperson, TRISHA [address] [place] [address] 08/17/2024 10:00 AM EST Office Visit Family Practice [facility] [address] [place] [address] George Cordoba, [address] [place] [address] Scheduled Orders Name Type Priority Associated Diagnoses Orde r Schedule CBC WITH WBC DIFFERENTIAL Lab Routine HTN, goal below 130/80 Expected: 06/04/2024 (Approximate), Expires: 12/06/2024 COMPREHENSIVE METABOLIC PANEL Lab Routine HTN, goal below 130/80 Prediabetes Dyslipidemia, goal LDL below 100 Expected: 06/04/2024 (Approximate), Expires: 12/06/2024 HEMOGLOBIN A1C Lab Routine Prediabetes Expected: 06/04/2024 (Approximate), Expires: 12/06/2024 ALBUMIN / CREATININE RATIO, URINE Lab Routine HTN, goal below 130/80 Expected: 06/04/2024 (Approximate), Expires: 12/06/2024 LIPID PANEL WITH DIRECT LDL IF TG IS HIGH Lab Routine Dyslipidemia, goal LDL below 100 Expected: 06/04/2024 (Approximate), Expires: 12/06/2024 Health Maintenance Due Date Last Done Comments [...] encounter Visit Diagnoses Diagnosis HTN, goal below 130/80- Primary Unspecified essential hypertension Primary hyperparathyroidism (HCC) Primary hyperparathyroidism Prediabetes Other abnormal glucose Morbid obesity due to excess calories (HCC) Dyslipidemia, goal LDL below 100 Other and unspecified hyperlipidemia documented in this encounter Advance Directives Latest Code Status on File Code Status Date Activated Date Inactivated Comments Full Code 03/07/2021 1:11 PM 03/08/2021 1:17 PM This order reflects the patients wishes and were consensually agreed upon. Care Teams Section Laborer Relationship Specialty Start Date End Date George Cordoba DO [address] [address] PCP - General Family Medicine 05/02/21 documented as of this encounter"
--- OUTSIDE RECORDS SUMMARY | 2024-03-05 09:41 | External Medical Summary | Summary of Care ---
Author Name Unknown Organization [facility] Address [address] [place] [address] Phone [phone] Care Team Providers Care Accounts Receivable Administrator Name Role Phone George Cordoba Primary Care Provider Reason for Referral * Precert (Within 10 days (routine)) - Authorized Specialty Diagnoses / Procedures Referred By Contac t Referred To Contact Radiology Diagnoses SOB (shortness of breath) Positive D dimer Procedures CT PULMONARY EMBOLUS W CONTRAST Em Rosado MD [address] [place] [address] Referral ID Status Reason Start Date Expiration Date V isits Requested Visits Authorized [id number] Authorized 10/11/2023 999 999 Encounter Details Date Type Department Care Team (Late st Contact Info) Description 10/11/2023 Telephone [facility] [address] [place] [address] Em Rosado MD [address] [place] [address] Allergies No known active allergiesdocumented as of this encounter (statuses as of 10/22/2023) Medications Medication Sig Dispensed Refills Start Date [...] as of this encounter (statuses as of 10/22/2023) Active Problems Problem Noted Date Diagnosed Date [...] as of this encounter (statuses as of 10/22/2023) Immunizations Name Administration Dates Next Due COVID-19 mRNA, LNP-s, No Pre serve, 2-Dose Series ([employer]) 06/13/2021,10/29/2020,10/08/2020 Pneumococcal Conjugate Vacc, 13 Valent (Prevnar) [...] Telephone Encounter - Em Rosado MD - 10/22/2023 10:16 AM EDT SOB can be def from cough, sinus congestion Wonder she is taking claritin still ? She can also try flonase to see if helping And will f/u cardiac stress test which take time for pre injection and after injection tests * Telephone Encounter - Dania Feliz CCMA - 10/22/2023 9:44 AM EDT Please advise as below. Thank you. * Telephone Encounter - Mallory Brown LPN - 10/21/2023 4:42 PM EDT Patient called. She has an appt. For stress test in a month. Why does it take a month? Also, wants to know why a stress test would take 2 days? She has to go on a Saturday and a Saturday for a nuclear stress test. Patient asking if the Coricidin HBP maximum strength cold and flu medicine could affect her heart? Informed patient that it said in the first message it was the chlorthalidone that she took and madeher feel better. She said this is wrong. She said it is the Coricidan HBP. Her head gets stuffed up. She takes it and breathes better. Please advise. * Telephone Encounter - Em Rosado MD - 10/21/2023 2:56 PM EDT In that case, it can be heart related Will fu stress test If SOB gets worse, should go to ER though * Telephone Encounter - Dania Feliz CCMA - 10/21/2023 2:39 PM EDT Patient aware and understands message. Pt states that she wants to know why she is getting SOB. Shestates that states that when she takes chlorthalidone the sob goes away. Please advise. * Telephone Encounter - Em Rosado MD - 10/21/2023 12:43 PM EDT Negative PE Sorry for delayed result since I return to office today Showed 8 mm pulmonary nodule which will need 6-12 mo f/u with PCP Will f/u cardiac stress test * Telephone Encounter - Maria G Alcantara OSA - 10/14/2023 8:45 AM EST Patient scheduled first available October 17. Is this day ok or should patient be seen sooner? * Telephone Encounter - Em Rosado MD - 10/11/2023 5:02 PM EST Blood test showed mild elevation of D dimer It is not very high but with SOB over 2 wks , would like to get CT chest for PE Ordered it and please schedule documented in this encounter Plan of Treatment Upcoming Encounters Date Type Department Care Team (Late st Contact Info) Description 11/19/2023 8:00 AM EDT Imaging [facility] 2nd Floor [address] [place] [address] 11/22/2023 8:00 AM EDT Imaging [facility] 2nd Floor [facility] [address] [place] [address] 12/07/2023 8:20 AM EDT Office Visit Family [address] [place] [address] George Cordoba, [address] [place] [address] Health Maintenance Due Date Last Done Comments DTaP,Tdap,and Td Vaccines (1 - Tdap) 1968 Cologuard 1994 Colonoscopy 1994 Fecal Occult Blood Test 1994 Sigmoidoscopy 1994 Zoster Vaccines (2 of 3) 07/26/2015 05/31/2015 Depression Screening 05/02/2022 05/02/2021 COVID-19 Vaccine (4 - season) 2023 06/13/2021, 10/29/2020, 10/08/2020 Influenza Vaccine (FLU shot) (#1) 2023 HbA1c 05/28/2024 05/28/2023, 10/11, 04/24/2022, Additional history [...] Not on filedocumented as of this encounter Results * CT PULMONARY EMBOLUS W CONTRAST (10/18/2023 8:22 AM EST) Anatomical Region Laterality Modality Chest, Cardio, Body Computed [place] ography 10/18/2023 8:48 AM EST Impressions 10/18/2023 8:45 AM EST IMPRESSION No CT evidence of a pulmonary embolism. 8 mm right lower lobe pulmonary nodule. Current recommendations from the Fleischner Society are: 6-8 mm : Single: -Low risk: CT at 6-12 months, then consider CT at 18-24 months -High risk: CT at 6-12 months, then CT at 18-24 months Multiple: -Low risk: CT at 3-6 months, then CT at 18-24 months -High risk: CT at 3-6 months, then at 18-24 months Other findings as above. Narrative 10/18/2023 8:45 AM EST EXAM EXAM: CT PULMONARY EMBOLUS W CONTRAST DATE TIME: 10/18/2023 - 10/18/2023 8:22 am CLINICAL INFORMATION: Pulmonary embolism; Wells score 2 - 4; D-Dimer elevated; No known/automatically detected potential contraindications to iodinated contrast TECHNIQUE Oral Contrast: Oral contrast was not administered. IV Contrast: IV contrast was used. Chest : with intravenous contrast COMPARISON CXR 10/11/2023 FINDINGS LINES AND DEVICES: None LUNGS: There is a 6 x 6 x 8 mm pulmonary nodule in the right lower lobe. LARGE AIRWAYS: Patent centrally. PLEURA: No pleural effusion. VESSELS: The bolus is of good quality for diagnosis of pulmonary embolism. There are no pulmonary arterial filling defects in the central or proximal segmental branches to suggest a pulmonary embolism. Atherosclerotic changes in the aorta and coronary arteries. HEART: Normal size. No pericardial effusion. MEDIASTINUM AND IZZY: No adenopathy. CHEST WALL/SOFT TISSUES: Unremarkable UPPER ABDOMEN: There is a 1 cm hypodensity in the anterior liver which is not further characterized. Small hiatal hernia. Mild colonic diverticula. Mild thickening of the left adrenal gland. BONES: Left shoulder arthroplasty with associated streak artifact limiting evaluation. Degenerative changes. Procedure Note Karina Benavides, - 10/18/2023 EXAM EXAM: CT PULMONARY EMBOLUS W CONTRAST DATE TIME: 10/18/2023 - 10/18/2023 8:22 am CLINICAL INFORMATION: Pulmonary embolism; Wells score 2 - 4; D-Dimerelevated; No known/automatically detected potential contraindications toiodinated contrast TECHNIQUE Oral Contrast: Oral contrast was not administered. IV Contrast: IV contrast was used. Chest : with intravenous contrast COMPARISON CXR 10/11/2023 FINDINGS LINES AND DEVICES: None LUNGS: There is a 6 x 6 x 8 mm pulmonary nodule in the right lower lobe. LARGE AIRWAYS: Patent centrally. PLEURA: No pleural effusion. VESSELS: The bolus is of good quality for diagnosis of pulmonaryembolism. There are no pulmonary arterial filling defects in the centralor proximal segmental branches to suggest a pulmonary embolism.Atherosclerotic changes in the aorta and coronary arteries. HEART: Normal size. No pericardial effusion. MEDIASTINUM AND IZZY: No adenopathy. CHEST WALL/SOFT TISSUES: Unremarkable UPPER ABDOMEN: There is a 1 cm hypodensity in the anterior liver which isnot further characterized. Small hiatal hernia. Mild colonicdiverticula. Mild thickening of the left adrenal gland. BONES: Left shoulder arthroplasty with associated streak artifact limitingevaluation. Degenerative changes. IMPRESSION IMPRESSION No CT evidence of a pulmonary embolism. 8 mm right lower lobe pulmonary nodule. Current recommendations from the Fleischner Society are: 6-8 mm : Single: -Low risk: CT at 6-12 months, then consider CT at 18-24 months -High risk: CT at 6-12 months, then CT at 18-24 months Multiple: -Low risk: CT at 3-[address], [address] at 18-24 months -High risk: CT at 3-6 months, then at 18-24 months Other findings as above. Em Rosado MD RAD CT documented in this encounter Visit Diagnoses Diagnosis SOB (shortness of breath)- Primary Shortness of breath Positive D dimer Abnormal coagulation profile SOB (shortness of breath) Shortness of breath Positive D dimer Abnormal coagulation profile documented in this encounter Advance Directives Latest Code Status on File Code Status Date Activated Date Inactivated Comments Full Code 03/07/2021 1:11 PM 03/08/2021 1:17 PM This order reflects the patients wishes and were consensually agreed upon. Care Teams Accounts Receivable Administrator Relationship Specialty Start Date End Date George Cordoba DO [address] [place] [address] PCP - General Family Medicine 05/02/21 documented as of this encounter
--- OUTSIDE RECORDS SUMMARY | 2024-03-05 09:41 | External Medical Summary | Summary of Care ---
Author Name Unknown Organization [facility] Address [address] [place] [address] Phone [phone] Care Team Providers Care Learning Strategist Name Role Phone George Cordoba Primary Care Provider Reason for Referral * Precert (Within 10 days (routine)) - Authorized Specialty Diagnoses / Procedures Referred By Contac t Referred To Contact Radiology Diagnoses SOB (shortness of breath) Positive D dimer Procedures CT PULMONARY EMBOLUS W CONTRAST Em Rosado MD [address] [place] [address] Referral ID Status Reason Start Date Expiration Date V isits Requested Visits Authorized [id number] Authorized 10/11/2023 999 999 Encounter Details Date Type Department Care Team (Late st Contact Info) Description 10/11/2023 Telephone [facility] [address] [place] [address] Em Rosado MD [address] [place] [address] Allergies No known active allergiesdocumented as of [...] mRNA, LNP-s, No Pre serve, 2-Dose Series ([employer]) 06/13/2021,10/29/2020,10/08/2020 Pneumococcal Conjugate Vacc, 13 Valent (Prevnar) [...] encounter Miscellaneous Notes * Telephone Encounter - Leeann Ramsey LPN - 10/22/2023 3:37 PM EDT Called and spoke with patient and she is aware of information from Dr. Rosado. * Telephone Encounter - Em Rosado MD - 10/22/2023 12:17 PM EDT Usually non specific allergy with sinus problem So better to try claritin daily too * Telephone Encounter - Dania Feliz CCMA - 10/22/2023 11:54 AM EDT Called pt she states that is not taking Claritin, pt states that she try Flonase. She states that she wants to know if she has allergies or if she has sinus problem. Please advise. * Telephone Encounter - Em [...] Info) Description 11/19/2023 8:00 AM EDT Imaging [facility] 2nd Floor Cardiology, [place] [address] [place] [address] 11/22/2023 8:00 AM EDT Imaging [address] [facility] [place] [address] [facility] [place] [address] 12/07/2023 8:20 AM EDT Office Visit Family Practice [facility] [address] [place] [address] George Cordoba DO [address] [place] [address] Health Maintenance Due Date Last Done Comments DTaP,Tdap,and Td Vaccines (1 - Tdap) 1968 Cologuard 1994 Colonoscopy 1994 Fecal Occult Blood Test 1994 Sigmoidoscopy 1994 Zoster Vaccines (2 of 3) 07/26/2015 05/31/2015 Depression Screening 05/02/2022 05/02/2021 COVID-19 Vaccine (4 - 2022- season) 2023 [...] evaluation. Degenerative changes. Procedure Note Karina Benavides, DO - 10/18/2023 EXAM EXAM: CT PULMONARY EMBOLUS [...] and were consensually agreed upon. Care Teams Learning Strategist Relationship Specialty Start Date End Date George Cordoba DO [address] [place] [address] PCP - General Family Medicine 05/02/21 documented as of this encounter
--- OUTSIDE RECORDS SUMMARY | 2024-03-05 09:41 | External Medical Summary | Summary of Care ---
Author Name Unknown Organization [facility] Address [address] [place] [address] Phone [phone] Care Team Providers Care Wire Weaver Name Role Phone George Cordoba Primary Care Provider Reason for Referral * Precert (Within 10 days (routine)) - Authorized Specialty Diagnoses / Procedures Referred By Contac t Referred To Contact Radiology Diagnoses SOB (shortness of breath) Positive D dimer Procedures CT PULMONARY EMBOLUS W CONTRAST Em Rosado MD [address] [place] [address] Referral ID Status Reason Start Date Expiration Date V isits Requested Visits Authorized [id number] Authorized 10/11/2023 999 999 Encounter Details Date Type Department Care Team (Late st Contact Info) Description 10/11/[address] [facility] [address] [place] [address] Em Rosado MD [address] [place] [address] Allergies No known active allergiesdocumented as of [...] mRNA, LNP-s, No Pre serve, 2-Dose Series ([employer]) 06/13/2021,10/29/2020,10/08/2020 Pneumococcal Conjugate Vacc, 13 Valent (Prevnar) [...] encounter Miscellaneous Notes * Telephone Encounter - Dania Feliz CCMA [...] test * Telephone Encounter - Maria G Alacntara OSA - 10/14/2023 8:45 AM EST Patient [...] Info) Description 11/19/2023 8:00 AM EDT Imaging [facility] 2nd Floor [facility] [place] [address] [facility] [place] [address] 11/22/2023 8:00 AM EDT Imaging [facility] 2nd [facility] [place] [address] [place] [address] 12/07/2023 8:20 AM EDT Office Visit Family Practice [facility] [address] [facility] [place] [address] George Cordoba, [address] [place] [address] Health Maintenance Due Date Last Done Comments [...] limiting evaluation. Degenerative changes. Procedure Note Karina Benavides DO - 10/18/2023 EXAM EXAM: CT PULMONARY [...] and were consensually agreed upon. Care Teams Wire Weaver Relationship Specialty Start Date End Date George Cordoba DO [address] [place] [address] PCP - General Family Medicine 05/02/21 documented as of this encounter
--- OUTSIDE RECORDS SUMMARY | 2024-03-05 09:41 | External Medical Summary | Summary of Care ---
Author Name Unknown Organization [facility] Address [address] [place] [address] Phone [phone] Care Team Providers Care Side Gluer Name Role Phone George Cordoba Primary Care Provider Reason for Referral * Precert (Within 10 days (routine)) - Authorized Specialty Diagnoses / Procedures Referred By Contac t Referred To Contact Radiology Diagnoses SOB (shortness of breath) Positive D dimer Procedures CT PULMONARY EMBOLUS W CONTRAST Em Rosado MD [address] [place] [address] Referral ID Status Reason Start Date Expiration Date V isits Requested Visits Authorized [id number] Authorized 10/11/2023 999 999 Encounter Details Date Type Department Care Team (Late st Contact Info) Description 10/11/2023 Telephone [facility] [address] [place] [address] Em Rosado MD [address] [place] [address] Allergies No known active allergiesdocumented as of this encounter (statuses as of 10/21/2023) Medications Medication Sig Dispensed Refills Start Date [...] as of this encounter (statuses as of 10/21/2023) Active Problems Problem Noted Date Diagnosed Date [...] as of this encounter (statuses as of 10/21/2023) Immunizations Name Administration Dates Next Due COVID-19 mRNA, LNP-s, No Pre serve, 2-Dose Series ([employer]) 06/13/2021,10/29/2020,10/08/2020 Pneumococcal Conjugate Vacc, 13 Valent (Prevnar) [...] encounter Miscellaneous Notes * Telephone Encounter - Mallory Brown LPN [...] Info) Description 11/19/2023 8:00 AM EDT Imaging [facility] 2nd Floor [facility] [address] [place] [address] 11/22/2023 8:00 AM EDT Imaging [address] [place] [address] 12/07/2023 8:20 AM EDT Office Visit Family Practice [facility] [address] [place] [address] George Cordoba, [address] [place] [address] Health Maintenance Due Date Last Done Comments [...] and were consensually agreed upon. Care Teams Side Gluer Relationship Specialty Start Date End Date George Cordoba DO [address] [place] [address] PCP - General Family Medicine 05/02/21 documented as of this encounter
--- OUTSIDE RECORDS SUMMARY | 2024-03-05 09:41 | External Medical Summary | Summary of Care ---
Author Name Unknown Organization [facility] Address [address] [place] [address] Phone [phone] Care Team Providers Care Hand Reamer Name Role Phone George Cordoba Primary Care Provider Reason for Referral * Precert (Within 10 days (routine)) - Authorized Specialty Diagnoses / Procedures Referred By Contac t Referred To Contact Radiology Diagnoses SOB (shortness of breath) Positive D dimer Procedures CT PULMONARY EMBOLUS W CONTRAST Em Rosado MD [address] [place] [address] Referral ID Status Reason Start Date Expiration Date V isits Requested Visits Authorized [id number] Authorized 10/11/2023 999 999 Encounter Details Date Type Department Care Team (Late st Contact Info) Description 10/11/2023 Telephone [facility] [address] [place] [address] Em Rosado MD [address] [place] [address] Allergies No known active allergiesdocumented as of [...] mRNA, LNP-s, No Pre serve, 2-Dose Series ([employer]) 06/13/2021,10/29/2020,10/08/2020 Pneumococcal Conjugate Vacc, 13 Valent (Prevnar) [...] Info) Description 11/19/2023 8:00 AM EDT Imaging [facility] 2nd Floor Cardiology, [place] [address] [facility] [place] [address] 11/22/2023 8:00 AM EDT Imaging [facility] 2nd Floor Cardiology, [place] [address] [place] [address] 12/07/2023 8:20 AM EDT Office Visit Family Practice [facility] [address] [place] [address] George Cordoba, [address] [place] [address] Health Maintenance Due Date Last Done Comments [...] artifact limiting evaluation. Degenerative changes. Procedure Note Kennedy Karinaaugustus Pinedo, DO - 10/18/2023 EXAM EXAM: CT PULMONARY [...] and were consensually agreed upon. Care Teams Hand Reamer Relationship Specialty Start Date End Date George Cordoba DO [address] [place] [address] PCP - General Family Medicine 05/02/21 documented as of this encounter
--- OUTSIDE RECORDS SUMMARY | 2024-03-05 09:41 | External Medical Summary | Summary of Care ---
Author Name Unknown Organization [facility] Address [address] [place] [address] Phone [phone] Care Team Providers Care Fluid Designer Name Role Phone George Cordoba Primary Care Provider Reason for Visit * Reason Onset Date Comments Test Results 10/18/2023 Encounter Details Date Type Department Care Team ([facility] st Contact Info) Description 10/18/2023 Telephone Laboratory, [place] [address] [place] [address] Em Rosado MD [address] [place] [address] Test Results Allergies No known active allergiesdocumented as of this encounter (statuses as of 10/18/2023) Medications Medication Sig Dispensed Refills Start Date [...] morning. 0 Active Vitamin D3 50 MCG (1999 UT) [...] the morning. 30 Tablet 5 10/11/2023 Active Hospital, Clinic, or Other Facility Administered Medication Ordered Dose Route Frequency Start Date End Date Status sodium chloride 0.9 % flush/inj 10 mL 10 mL IV PUSH ONCE 10/18/2023 10/18/2023 Active documented as of this encounter (statuses as of 10/18/2023) Active Problems Problem Noted Date Diagnosed Date [...] as of this encounter (statuses as of 10/18/2023) Immunizations Name Administration Dates Next Due COVID-19 [...] encounter Miscellaneous Notes * Telephone Encounter - Sydnie Campos OSA - 10/18/2023 8:56 AM EST Hello- The radiologist discovered an unexpected or indeterminate finding on Ashley Denzel ([id number]) and asks that you review the following report. Study Type: CT PULMONARY EMBOLUS W CONTRAST Date of Study: 10/17/[address] evidence of a pulmonary [...] at 18-24 months Other findings as above. Please respond to this encounter to acknowledge receipt of this message and take responsibility to ensure this report is reviewed. Thank you, MADINA Saavedra Client Service Rep [facility] Medicine [place] documented in this encounter Plan of Treatment Upcoming Encounters Date Type Department Care Team (Late st Contact Info) Description 12/07/2023 8:20 AM EDT Office Visit Family [facility] [address] [place] [address] George Cordoba, [address] [place] [address] Health Maintenance Due Date Last Done Comments DTaP,Tdap,and Td Vaccines (1 - Tdap) 1968 Cologuard 1994 Colonoscopy 1994 Fecal Occult Blood Test 1994 Sigmoidoscopy 1994 Zoster Vaccines (2 of 3) 07/26/2015 05/31/2015 Depression Screening 05/02/2022 05/02/2021 COVID-19 Vaccine ( - 2022- season) 2023 06/13/2021, 10/29/2020, 10/08/2020 [...] and were consensually agreed upon. Care Teams Fluid Designer Relationship Specialty Start Date End Date George Cordoba DO [address] [place] [address] PCP - General Family Medicine 05/02/21 documented as of this encounter
--- OUTSIDE RECORDS SUMMARY | 2024-03-05 09:41 | External Medical Summary | Summary of Care ---
Author Name Unknown Organization [facility] Address [address] [place] [address] Phone [phone] Care Team Providers Care Cattle Broker Name Role Phone George Cordoba Primary Care Provider Reason for Referral * Precert (Within 10 days (routine)) - Authorized Specialty Diagnoses / Procedures Referred By Contac t Referred To Contact Radiology Diagnoses SOB (shortness of breath) Positive D dimer Procedures CT PULMONARY EMBOLUS W CONTRAST Em Rosado MD [address] [place] [address] Referral ID Status Reason Start Date Expiration Date V isits Requested Visits Authorized [id number] Authorized 10/11/2023 999 999 Encounter Details Date Type Department Care Team (Late st Contact Info) Description 10/11/2023 Telephone [facility] [address] [place] [address] Em Rosado MD [address] [place] [address] Allergies No known active allergiesdocumented as of [...] mRNA, LNP-s, No Pre serve, 2-Dose Series ([employer]) 06/13/2021,10/29/2020,10/08/2020 Pneumococcal Conjugate Vacc, 13 Valent (Prevnar) [...] Info) Description 11/19/2023 8:00 AM EDT Imaging [facility] 2nd [facility] [address] [place] [address] 11/22/2023 8:00 AM EDT Imaging [facility] 2nd Floor [facility] [address] [place] [address] 12/07/2023 8:20 AM EDT Office Visit Family Practice [facility] [address] [place] [address] George Cordoba DO [address] [place] [address] Health Maintenance Due Date Last Done Comments [...] and were consensually agreed upon. Care Teams Cattle Broker Relationship Specialty Start Date End Date George Cordoba DO [address] [place] [address] PCP - General Family Medicine 05/02/21 documented as of this encounter
--- OUTSIDE RECORDS SUMMARY | 2024-03-05 09:41 | External Medical Summary | Summary of Care ---
Author Name Unknown Organization [facility] Address [address] [place] [address] Phone [phone] Care Team Providers Care Pole Sander Operator Name Role Phone George Cordoba Primary Care Provider Reason for Visit * Reason Onset Date Comments Test Results 10/18/2023 Encounter Details Date Type Department Care Team ([facility] st Contact Info) Description 10/18/2023 Telephone Laboratory, [place] [address] [place] [address] Em Rosado MD [address] [place] [address] Test Results Allergies No known active allergiesdocumented as of this encounter (statuses as of 10/20/2023) Medications Medication Sig Dispensed Refills Start Date [...] 10 mL IV PUSH ONCE 10/18/2023 10/18/2023 Ended documented as of this encounter (statuses as of 10/20/2023) Active Problems Problem Noted Date Diagnosed Date [...] as of this encounter (statuses as of 10/20/2023) Immunizations Name Administration Dates Next Due COVID-19 [...] unexpected or indeterminate finding on Ashley Denzel ([id number]) and asks that you review the following [...] Thank you, MADINA Saavedra Client Service Rep [facility] documented in this encounter Plan of Treatment Upcoming Encounters Date Type Department Care Team (Late st Contact Info) Description 11/19/2023 8:00 AM EDT Imaging [facility] 2nd [facility] [address] [facility] [place] [address] 11/22/2023 8:00 AM EDT Imaging [address] [facility] [place] [address] 12/07/2023 8:20 AM EDT Office Visit Family Practice [facility] [address] [facility] [place] [address] George Cordoba DO 132 [facility] [place] [address] Health Maintenance Due Date Last Done Comments DTaP,Tdap,and Td Vaccines (1 - Tdap) 1968 Cologuard 1994 Colonoscopy 1994 Fecal Occult Blood Test 1994 Sigmoidoscopy 1994 Zoster Vaccines (2 of 3) 07/26/2015 05/31/2015 Depression Screening 05/02/2022 05/02/2021 COVID-19 Vaccine (4 - 2023-24 season) 2023 06/13/2021, 10/29/2020, 10/08/2020 Influenza Vaccine [...] and were consensually agreed upon. Care Teams Pole Sander Operator Relationship Specialty Start Date End Date George Cordoba DO [address] [place] [address] PCP - General Family Medicine 05/02/21 documented as of this encounter
--- OUTSIDE RECORDS SUMMARY | 2024-03-05 09:41 | External Medical Summary | Summary of Care ---
Author Name Unknown Organization [facility] Address [address] [place] [address] Phone [phone] Care Team Providers Care Manager Line Name Role Phone George Cordoba Primary Care Provider Reason for Visit * Reason Onset Date Comments Test Results 10/18/2023 Encounter Details Date Type Department Care Team ([facility] st Contact Info) Description 10/18/2023 Telephone Laboratory, [place] [address] [place] [address] Em Rosado MD [address] [place] [address] Test Results Allergies No known [...] Encounter - Em Rosado MD - 10/21/2023 12:45 PM EDT Noted * Telephone Encounter - Sydnie Campos OSA - 10/18/2023 8:56 AM EST Tone- The radiologist discovered an unexpected or indeterminate finding on Ashley Mahoney ([id number]) and asks that you review the following [...] Thank you, MADINA Saavedra Client Service Rep [facility] [place] documented in this encounter Plan of Treatment Upcoming Encounters Date Type Department Care Team (Late st Contact Info) Description 11/19/2023 8:00 AM EDT Imaging [facility] 2nd Floor [facility] [address] [place] [address] 11/22/2023 8:00 AM EDT Imaging [address] [place] [address] 12/07/2023 8:20 AM EDT Office Visit Family Practice [facility] [address] [place] [address] George Cordoba DO [address] [place] [address] Health Maintenance Due Date Last Done Comments [...] and were consensually agreed upon. Care Teams Manager Line Relationship Specialty Start Date End Date George Cordoba DO [address] [place] [address] PCP - General Family Medicine 05/02/21 documented as of this encounter
--- OUTSIDE RECORDS SUMMARY | 2024-03-05 09:41 | External Medical Summary | Summary of Care ---
Author Name Unknown Organization [facility] Address [address] [place] [address] Phone [phone] Care Team Providers Care Hot Billet Shear Operator Name Role Phone George Cordoba Primary Care Provider Reason for Referral * Precert (Within 10 days (routine)) - Authorized Specialty Diagnoses / Procedures Referred By Contac t Referred To Contact Radiology Diagnoses SOB (shortness of breath) Positive D dimer Procedures CT PULMONARY EMBOLUS W CONTRAST Em Rosado MD [address] [place] [address] Referral ID Status Reason Start Date Expiration Date V isits Requested Visits Authorized [id number] Authorized 10/11/2023 999 999 Encounter Details Date Type Department Care Team (Late st Contact Info) Description 10/11/2023 Telephone [facility] [address] [place] [address] Em Rosado MD [address] [place] [address] Allergies No known active allergiesdocumented as of [...] mRNA, LNP-s, No Pre serve, 2-Dose Series ([employer]) 06/13/2021,10/29/2020,10/08/2020 Pneumococcal Conjugate Vacc, 13 Valent (Prevnar) [...] Info) Description 11/19/2023 8:00 AM EDT Imaging [facility] 2nd Floor Cardiology, [place] [address] [facility] [place] [address] 11/22/2023 8:00 AM EDT Imaging [facility] 2nd Floor Cardiology, [address] [place] [address] 12/07/2023 8:20 AM EDT Office Visit Family [facility] [address] [place] [address] George Cordoba, [address] [place] [address] Health Maintenance Due Date Last Done Comments [...] and were consensually agreed upon. Care Teams Hot Billet Shear Operator Relationship Specialty Start Date End Date George Cordoba DO [address] [place] [address] PCP - General Family Medicine 05/02/21 documented as of this encounter
--- OUTSIDE RECORDS SUMMARY | 2024-03-05 09:41 | External Medical Summary | Summary of Care ---
Author Name Unknown Organization [facility] Address [address] [place] [address] Phone [phone] Care Team Providers Care Manager Sales And Marketing Name Role Phone George Cordoba Primary Care Provider Reason for Referral * Precert (Within 10 days (routine)) - Authorized Specialty Diagnoses / Procedures Referred By Contac t Referred To Contact Radiology Diagnoses SOB (shortness of breath) Positive D dimer Procedures CT PULMONARY EMBOLUS W CONTRAST Em Rosado MD [address] [place] [address] Referral ID Status Reason Start Date Expiration Date V isits Requested Visits Authorized [id number] Authorized 10/11/2023 999 999 Encounter Details Date Type Department Care Team (Late st Contact Info) Description 10/11/2023 Telephone [facility] [address] [place] [address] Em Rosado MD [address] [place] [address] Allergies No known active allergiesdocumented as of [...] mRNA, LNP-s, No Pre serve, 2-Dose Series ([employer]) 06/13/2021,10/29/2020,10/08/2020 Pneumococcal Conjugate Vacc, 13 Valent (Prevnar) [...] Description 11/19/2023 8:00 AM EDT Imaging [facility] 2nd [facility] [address] [place] [address] 11/22/2023 8:00 AM EDT Imaging [facility] 2nd Floor [facility] [address] [place] [address] 12/07/2023 8:20 AM EDT Office Visit Family Practice [facility] [address] [place] [address] George Cordoba, [address] [place] [address] Health Maintenance Due Date Last Done Comments [...] were consensually agreed upon. Care Teams Manager Sales And Marketing Relationship Specialty Start Date End Date George Cordoba DO [address] [place] [address] [place] [address] PCP - General Family Medicine 05/02/21 documented as of this encounter
--- OUTSIDE RECORDS SUMMARY | 2024-03-05 09:41 | External Medical Summary | Summary of Care ---
Author Name Unknown Organization [facility] Address [address] [place] [address] Phone [phone] Care Team Providers Care Business Instructor Name Role Phone George Cordoba Primary Care Provider Reason for Referral * Precert (Within 10 days (routine)) - Authorized Specialty Diagnoses / Procedures Referred By Contac t Referred To Contact Radiology Diagnoses SOB (shortness of breath) Positive D dimer Procedures CT PULMONARY EMBOLUS W CONTRAST Em Rosado MD [address] [place] [address] Referral ID Status Reason Start Date Expiration Date V isits Requested Visits Authorized [id number] Authorized 10/11/2023 999 999 Encounter Details Date Type Department Care Team (Late st Contact Info) Description 10/11/2023 Telephone [facility] [address] [place] [address] Em Rosado MD [address] [place] [address] Allergies No known active allergiesdocumented as of [...] mRNA, LNP-s, No Pre serve, 2-Dose Series ([employer]) 06/13/2021,10/29/2020,10/08/2020 Pneumococcal Conjugate Vacc, 13 Valent (Prevnar) [...] Info) Description 11/19/2023 8:00 AM EDT Imaging [facility] 2nd [facility] [address] [facility] [place] [address] 11/22/2023 8:00 AM EDT Imaging [facility] 2nd [facility] [address] [place] [address] 12/07/2023 8:20 AM EDT Office Visit Family [facility] [address] [place] [address] George Cordoba, [address] [place] [address] Health Maintenance Due Date Last Done Comments [...] artifact limiting evaluation. Degenerative changes. Procedure Note KennedyKarina Pinedo, DO - 10/18/2023 EXAM EXAM: CT [...] and were consensually agreed upon. Care Teams Business Instructor Relationship Specialty Start Date End Date George Cordoba DO [address] [place] [address] PCP - General Family Medicine 05/02/21 documented as of this encounter
--- OUTSIDE RECORDS SUMMARY | 2024-03-05 09:41 | External Medical Summary | Summary of Care ---
Author Name Unknown Organization [facility] Address [address] [place] [address] Phone [phone] Care Team Providers Care Garage Door Installer Name Role Phone George Cordoba Primary Care Provider Reason for Visit * Reason Onset Date Comments Test Results 10/18/2023 Encounter Details Date Type Department Care Team ([facility] st Contact Info) Description 10/18/2023 Telephone Laboratory, [place] [address] [place] [address] Em Rosado MD [address] [place] [address] Test Results Allergies No known [...] unexpected or indeterminate finding on Ashley Denzel ([id number]) and asks that you review the following [...] Thank you, MADINA Saavedra Client Service Rep [facility] [place] documented in this encounter Plan of Treatment Upcoming Encounters Date Type Department Care Team (Late st Contact Info) Description 12/07/2023 8:20 AM EDT Office Visit Family [facility] [address] [place] [address] George Cordoba, [address] [place] [address] Health Maintenance Due Date Last Done Comments [...] and were consensually agreed upon. Care Teams Garage Door Installer Relationship Specialty Start Date End Date George Cordoba DO [address] [place] [address] PCP - General Family Medicine 05/02/21 documented as of this encounter
--- NOTE | 2024-03-05 09:43 | History & Physical Bridge Note ---
Date of Service March 05, 2024 History & Physical Bridge Note I have examined the patient, reviewed the History & Physical and in the interval since the performance of the History & Physical I have noted the following changes of clinical significance: no changes noted
--- NOTE | 2024-03-05 09:45 | Pre Anesthesia Assessment ---
Date of Service March 05, 2024 Pre Sedation Assessment Vital Signs Temp Pulse Resp BP Pulse Ox O2 Del Method 03/05/24 08:42 36.6 C 71 18 177/79 H 97 Room Air Cardiovascular + regular rate and + regular rhythm + S1 normal and + S2 normal; no murmur + femoral pulses present and + radial pulses present; no JVD and no carotid bruit no edema Respiratory + respiratory effort normal; no respiratory distress, no labored breathing and no retractions no crackles, no rales, no rhonchi and no wheezes Pre-Sedation Airway Assessment Smoking Status: Former smoker Hx Sleep Apnea: No Short, Thick Neck: No Thyromental Distance: > or= 3.5 Finger Breadths Oral Cavity: + Dentures Mallampati Class: III ASA: ASA3 NPO Status Date of Last Intake of Fluids: 03/05/24 Time of Last Intake of Fluids: 07:00 Last Oral Intake of Fluids Comment: sips with pills Date of Last Intake of Solid Food: 03/04/24 Time of Last Intake of Solid Foods: 20:00 Procedure Planning Contraindications for Sedation: none Current Medications Reviewed: Yes Notes The planned sedation has been discussed with the patient. Informed Consent was obtained. I have identified the patient, determined the appropriateness of sedation and have assessed the patient immediately prior to the procedure. All medicine(s) and interventions are by my order.
--- NOTE | 2024-03-05 10:57 | Post Anesthesia Assessment ---
Date of Service March 05, 2024 Post Sedation Assessment Vital Signs Temp Pulse Resp BP Pulse Ox O2 Del Method 03/05/24 08:42 36.6 C 71 18 177/79 H 97 Room Air Recovery Score Activity: Moves 4 extremities Respiration: Deep Breath/Cough Circulation: +/-20% PreAnes Value Consciousness: Arouseable (by name) Oxygen Saturation: > 92% On Room Air Discharge Sedation Level of Care: Phase I Post Sedation Plan On clinical assessment, the patient appears to have tolerated the sedation without complications. Patient is recovering as anticipated. Patient will continue to be monitored by nursing and may be discharged when sedation discharge criteria are met per below protocol. Upon Completions of procedure up to 15 minutes continue every 5 minute vital signs and the P.A.R. score; then discharge to a Phase I or Fast Track to Phase II per the following guidelines: * Discharge Patient to appropriate Phase II area if PAR is 8 or greater or return to pre- procedure baseline. The post - procedure orders will be as d irected. * If PAR score is less than 8 or not return to pre-procedure baseline then patient will follow Phase I monitoring till PAR is reached for Phase II. The Phase I may be done in procedure room or may call to secure a Phase I area. * If naloxone or flumazenil are used for reversal, hold in Phase I for continued monitoring from when last reversal dose was given for a minimum of 60 minutes or longer pending the nurse and/or physician discretion of patient condition before discharge to Phase II. Please call the Sedation Physician to re-evaluate and complete post-note for discharge to Phase II area. Do NOT discharge from procedure sedation or Phase 1 until post- sedation evaluation note is complete by procedure /sedation MD Sedation Discharge Instructions to be given to the patient at discharge to home.
--- NOTE | 2024-03-05 11:15 | Cardiac Catheterization ---
Cardiac Cath Procedure Full Procedure Date March 05, 2024 Pre-Procedure Diagnosis Pre-Procedure Diagnosis: Angina and Positive Stress Test (Abnormal nuclear stress test with anterior, lateral, and apical ischemia.) AUC Score AUC Score: 7 Post-Procedure Diagnosis Post-Procedure Diagnosis: Severe CAD and Elevated Intracardiac Pressures Procedure(s) Performed Procedure(s) Performed: Coronary Angiography and Left Heart Cath Key Attendant Jaden Marquez DO Plasterer Helper(s) Gavi RT Estimated Blood Loss Estimated Blood Loss: 5cc Medication(s) Medication(s): Fentanyl, Heparin, Lidocaine 1%, Nicardipine, Nitroglycerin and Versed Summary of Findings Multivessel coronary disease. 70% mid LAD 90% mid D2 (small vessel) 50% distal left circumflex 80% mid OM1 (small vessel) Elevated LVEDP 38mmHg Hemodynamics Rest Ao:: 157/78/111 Final Ao: 159/74/78 LV: 152/25/38 Recommendations Recommendations: Medical Therapy and/or Counseling and PCI without planned CABG Specimens Specimens: None Radiation Exposure (mGy) 1214 Contrast (mls) 60 Fluids (cc crystalloids) Fluids (cc crystalloids): 160 Nss Drains Drains: N/A Anesthesia Moderate sedation. Start 1023. End 1043. Sedation monitor: Aristides [facility] Procedural Complication(s) None Disposition Patient remained in labor standards director for PCI of LAD I attest to the content of the Intraoperative Record and any orders documented therein. Any exceptions are noted below. [facility] Data: Reception Cardiac Status Clinical evaluation leading to the procedure Exertional angina with abnormal Lexiscan nuclear stress test suggesting anterior, lateral, and apical ischemia. CAD Presenation: Positive Stress Test and Stable angina Anginal Classification: CCS II Heart Failure: Yes Cardiogenic Shock within 24 Hours: No Cardiac Arrest within 24 Hours: No Stress Studies Past 6 Months: Yes Stress Testing w/SPECT MPI: Yes - Positive and Risk/Extent of Ischemia (High) Coronary Anatomy Dominant: Co-Dominant Left Main (% Stenosis): Normal LAD (% Stenosis): Mid (70%) D1 (% Stenosis): Mid (20%, Luminal irregularities, small vessel) D2 (% Stenosis): Mid (90% before bifurcation, small vessel) Circumflex (% Stenosis): Proximal (20%) and Mid (30% followed by 50%, moderate calcification) OM1 (% Stenosis): Mid (80%, mid vessel) OM2 (% Stenosis): Normal L PL1 (% Stenosis): Ostial (60%, small vessel) L PL2 (% Stenosis): Proximal (luminal irreglarities, 10%) L PDA (% Stenosis): Normal (small, 1mm vessel) RCA (% Stenosis): Ostial (small vessel), Proximal (Diffuse stenosis/luminal irregularities, 30%) and Mid (40%) R PDA (% Stenosis): Normal (small veseel) Ramus (% Stenosis): Normal (small vessel) Diagnostic Physicians Name: Jaden Marquez DO Closure Device Percutaneous Entry Location: Radial Closure Device: Radial Band Recommendations: Medical Therapy and/or Counseling and PCI without planned CABG Intraprocedure Events Significant Disection: No Perforation: No
[2024-03-05] MEDS: HEPARIN (PORCINE) 1000 UNIT/ML 10 ML (CATH LAB USE ONLY) ONE (11:32)
[2024-03-05] MEDS: fentaNYL citrate PF 100 MCG/2 ML VIAL ONE ×2 (11:32→11:36)
[2024-03-05] MEDS: MIDAZOLAM HCL 1 MG/ML 2ML VIAL ONE ×2 (11:33→11:36)
[2024-03-05] MEDS: niCARdipine HCL INJ 2.5 MG/ML 10 ML AMP ONE (11:33)
[2024-03-05] MEDS: OPTIRAY 350 ONE (11:34)
[2024-03-05] MEDS: NITROGLYCERIN/D5W 100MCG/ML 20ML SYR ONE (11:35)
[2024-03-05] MEDS: ONDANSETRON INJ 2 MG/ML 2 ML VIAL ONE (11:35)
[2024-03-05] MEDS: LABETALOL HCL IV 5 MG/ML 20ML (CATH LAB USE ONLY) IV ONE (11:35)
[2024-03-05] MEDS: IODIXANOL (VISIPAQUE) 320 MG/ML 100ML IV ONE (11:35)
[2024-03-05] MEDS: TICAGRELOR 90 MG TAB ONE (11:36)
--- NOTE | 2024-03-05 11:49 | Post Anesthesia Assessment ---
Date of Service March 05, 2024 Post Sedation Assessment Vital Signs Temp Pulse Resp BP Pulse Ox O2 Del Method 03/05/24 11:33 73 18 155/78 H 98 Room Air 03/05/24 08:42 36.6 C 71 18 177/79 H 97 Room Air Recovery Score Activity: Moves 4 extremities Respiration: Deep Breath/Cough Circulation: +/-20% PreAnes Value Consciousness: Arouseable (by name) Oxygen Saturation: > 92% On Room Air Discharge Sedation Level of Care: Fast Track Phase II Post Sedation Plan On clinical assessment, the patient appears to have tolerated the sedation without complications. Patient is recovering as anticipated. Patient will continue to be monitored by nursing and may be discharged when sedation discharge criteria are met per below protocol. Upon Completions of procedure up to 15 minutes continue every 5 minute vital s igns and the P.A.R. score; then discharge to a Phase I or Fast Track to Phase II per the following guidelines: * Discharge Patient to appropriate Phase II area if PAR is 8 or greater or return to pre- procedure baseline. The post - procedure orders will be as directed. * If PAR score is less than 8 or not return to pre-procedure baseline then patient will follow Phase I monitoring till PAR is reached for Phase II. The Phase I may be done in procedure room or may call to secure a Phase I area. * If naloxone or flumazenil are used for reversal, hold in Phase I for continued monitoring from when last reversal dose was given for a minimum of 60 minutes or longer pending the nurse and/or physician discretion of patient condition before discharge to Phase II. Please call the Sedation Physician to re-evaluate and complete post-note for discharge to Phase II area. Do NOT discharge from procedure sedation or Phase 1 until post- sedation evaluation note is complete by procedure /sedation MD Sedation Discharge Instructions to be given to the patient at discharge to home. [facility] Procedure Codes (Charges) Indication for Procedure Indication for procedure: ANGINA, ABNORMAL STRESS Sedation/Anesthesia Procedure 1: Sedation/Anesthesia: 03754 Mod Sedation by a different physician ;Init15 Min Child Age 5&Up (Initial 15 min, drone operator. Start 1048) Total Sedation Time (minutes): 34 Procedure 2: Sedation/Anesthesia: 57619 Mod Sedation by a different physician;Ea Additional 15 Minutes (Additional 19 min, drone operator, end 1122) Total Sedation Time (minutes): 34
--- NOTE | 2024-03-05 11:58 | Cardiac Catheterization ---
[facility] Data: Account Liaison Cardiac Status Clinical evaluation leading to the procedure CAD Presenation: Positive Stress Test and Stable angina Anginal Classification: CCS III Heart Failure: No Cardiogenic Shock within 24 Hours: No Cardiac Arrest within 24 Hours: No Imaging Studies Past 6 Months: Yes Stress Studies Past 6 Months: Yes Coronary Anatomy Dominant: Left (See Dr. Marquez note for diagnostic findings) Diagnostic Physicians Name: Barry Garrido MD, PhD Closure Device Percutaneous Entry Location: Radial Closure Device: Radial Band Recommendations: Medical Therapy and/or Counseling and PCI without planned CABG PCI Indication: Stable Angina Lesion Segment Name: Mid LAD Culprit Artery: Yes Stenosis Prior to Rx (%): 70% Chronic Total Occlusion: No FFR: Yes (iFR. Hemodynamically significant) Ratio: less than or equal to 0.75% (0.82, 0.82, 0.80 (iFR)) Pre-Procedure CESILIA Flow: 3 (2-3) Previously Treated Lesion: No Lesion Complexity: Non-High/Non-C Lesion Length (mm): 12 Thrombus Present: No Bifurcation Lesion: No Guidewire Across Lesion: Yes Intraprocedure Events Significant Disection: No Perforation: No Cardiac Cath Procedure Full Procedure Date March 05, 2024 Pre-Procedure Diagnosis Pre-Procedure Diagnosis: Angina and Positive Stress Test (Abnormal nuclear stress test with anterior, lateral, and apical ischemia.) AUC Score AUC Score: 9 Post-Procedure Diagnosis Post-Procedure Diagnosis: Severe CAD and Successful PCI Procedure(s) Performed Procedure(s) Performed: Drug Eluting Stent and Fractional Flow [place] [employer] Safety Engineer Barry Garrido MD, PhD Test Conductor(s) Gavi PORTILLO Estimated Blood Loss Estimated Blood Loss: 5cc Medication(s) Medication(s): Fentanyl, Heparin, Lidocaine 1%, Nicardipine, Nitroglycerin and Versed Summary of Findings Brief description: Patient was already shaved and prepped and previously sedated by Dr. Marquez who performed a diagnostic coronary angiography. 6 Cam[place]onian radial artery glide sheath was in place. Additional sedation was provided using fentanyl and Versed as needed throughout the case. Patient was nauseated so Zofran was also provided. ACT was checked and additional heparin was provided as needed throughout the case to maintain therapeutic anticoagulation. We proceeded first with IFR analysis of the LAD lesion. 6 Cam[place]onian EBU 3.0 guide catheter was used to engage the left main coronary. Doppler wire was advanced in position with the transducer just distal to the guide catheter tip. System was flushed with normal saline and the pressures were normalized. The guidewire was then advanced beyond the lesion in the LAD. iFR was sampled 3 times. Doppler wire was then removed and preparation was made for PCI. A BMW dorsal guidewire was advanced and positioned distally in the LAD. Lesion was predilated using a 2.5 x 12 mm trek balloon at 8 followed by 14 atmospheres A 6 [place] guide liner support/extension catheter was advanced and used to help deliver the stent given the calcification and tortuosity in the artery. A 2.5 x 15 mm Johnson drug-eluting stent was then delivered across the lesion where it was deployed at 12 atmospheres. Stent balloon was then removed. Fabric Designer angiography was performed. The guide liner was removed followed by the coronary guidewire. Final angiographic evaluation was performed. The guide catheter was then removed over the J-wire. Radial artery sheath was removed. Hemostasis was obtained using the TR band. Patient remained hemodynamically stable and asymptomatic. She was returned to the recovery area. This ended the case. She was provided 180 mg of Brilinta p.o. in the Account Liaison prior to transfer. iFR of LAD- 0.82, 0.82, 0.80. Therefore, this lesion is considered hemodynamically significant. PCI of LAD- 70% lesion is reduced to 0% residual stenosis post PCI No evidence of dissection or perforation post PCI CESILIA-3 flow post PCI (CESILIA 2 to CESILIA-3 flow pre-stent streaming) Summary: 1. iFR demonstrates that the angiographically borderline LAD stenosis is hemodynamically significant. 2. Successful PCI of the LAD with implantation of a single drug-eluting stent. 3. Dual antiplatelet therapy with aspirin 81 mg daily and Brilinta 90 mg p.o. twice daily for minimum of 6 months and preferably up to 2 years. 4. Initiate guideline directed medical therapy for secondary prevention per primary coyote hunter. Consider; lifelong low-dose aspirin, high intensity statin therapy, beta-simon, and CHANTE inhibitor/ARB. Hemodynamics Rest Ao:: 157/78 mmHg Final Ao: 160/75 mmHg LV: Not performed Recommendations Recommendations: Medical Therapy and/or Counseling and PCI without planned CABG Specimens Specimens: None Radiation Exposure (mGy) 1979 mGy, fluoroscopy time 12.5 minutes Contrast (mls) 95 Fluids (cc crystalloids) Fluids (cc crystalloids): 160 Nss Drains Drains: N/A Anesthesia 3 mg Versed, 125 mcg fentanyl. Start 1048, end 1122 Procedural Complication(s) None Disposition Account Liaison Holding/Recovery I attest to the content of the Intraoperative Record and any orders documented therein. Any exceptions are noted below. [facility] Card Cath Procedure Codes Cardiac Catheterization Procedure 1: Cardiovascular Cath Procedures: 62161 (Doppler) Pressure Wire (iFR) Moderate Sedation Procedure 1: Sedation/Anesthesia: 96797 Mod Sedation by a different physician ;Init15 Min Child Age 5&Up (Initial 15 min, second physician. Start 1048) Procedure 2: Sedation/Anesthesia: 57421 Mod Sedation by a different physician;Ea Additional 15 Minutes (Additional 19 min, cut press operator end 1122) Stenting Procedure 1: Cardiovascular Stent Procedures: 41211 Perc transcatheter placement of intracoronary stent(s), with ang (LAD) PG Care Time/CCT Total # of Minutes Spent Total Time Spent with Patient: Total time spent is greater than 50% in coordination of care (as documented) at patient's floor/unit and/or counseling patient:
[2024-03-05] MEDS: LOSARTAN POTASSIUM 50 MG TAB PO SCH (14:21)
[2024-03-05] MEDS: ENOXAPARIN INJ 40 MG/0.4 ML SYR SQ ONE (14:21)
[2024-03-05] MEDS: TORSEMIDE 20 MG TAB PO SCH (14:21)
[2024-03-05 16:35] LABS: Creatinine Clr Calc Pharmacy 54.1 ml/min; Est GFR (African American) 60.6 ml/min; Est GFR (Non-African American) 52.3 ml/min
[2024-03-05] MEDS: ACETAMINOPHEN 325 MG TAB PO PRN (20:01)
[2024-03-06] MEDS ORDERED: CLOPIDOGREL BISULFATE 300 MG TAB PO SCH
[2024-03-06] MEDS: ENOXAPARIN INJ 40 MG/0.4 ML SYR SQ SCH (00:22)
[2024-03-06] MEDS: TICAGRELOR 90 MG TAB PO SCH (00:22)
[2024-03-06 06:30] LABS: Basophils # (auto) 0.05 K/uL (0.00-0.20); Basophils % (auto) 0.5 %; Eosinophils # (auto) 0.21 K/uL (0.00-0.50); Eosinophils % (auto) 2.2 %; Hematocrit (blood only) 36.5 % (37.0-47.0); Hemoglobin 11.7 g/dl (12.0-16.0); Immature Granulocytes # (auto) 0.04 K/uL (0.01-0.20); Immature Granulocytes % (auto) 0.4 %; Lymphocytes # (auto) 1.65 K/uL (1.20-3.40); Lymphocytes % (auto) 17.1 %; Mean Corpuscular Hemoglobin 27.9 pg (25.0-34.0); Mean Corpuscular Hgb Conc 32.1 g/dL (32.0-36.0); Mean Corpuscular Volume 87.1 fL (80.0-100.0); Mean Platelet Volume 9.1 fL (9.4-12.4); Monocytes # (auto) 0.79 K/uL (0.11-0.59); Monocytes % (auto) 8.2 %; Neutrophils % (auto) 71.6 %; Platelet Count 302 K/uL (130-400); RDW Coefficient of Variation 13.1 % (11.5-14.5); RDW Standard Deviation 41.1 fL (36.4-46.3); Red Blood Count 4.19 M/uL (4.20-5.40); White Blood Count 9.64 K/ul (4.8-10.8)
[2024-03-06 06:52] LABS: BUN Creatinine Ratio 27.5 (10-20); Calcium 9.3 mg/dl (8.6-10.3); Creatinine Clr Calc Pharmacy 55.7 ml/min; Est GFR (African American) 62.8 ml/min; Est GFR (Non-African American) 54.1 ml/min; Potassium 4.2 mmol/L (3.5-5.1)
[2024-03-06] MEDS: EZETIMIBE 10 MG TAB PO SCH (09:29)
[2024-03-06] MEDS: ASPIRIN 81 MG ECTAB PO SCH (09:30)
[2024-03-06] MEDS: METOPROLOL SUCC 25MG EXT REL TAB PO SCH (09:31)
[2024-03-06] MEDS: MAGNESIUM OXIDE 400 MG TAB PO SCH (09:34)
[2024-03-06] MEDS: LOSARTAN POTASSIUM 25 MG TAB PO SCH (12:52)
--- NOTE | 2024-03-06 16:23 | Cardiology Progress Note ---
Date of Service March 06, 2024 Assessment & Plan (1) Status post insertion of drug-eluting stent into left anterior descending (LAD) artery: (2) Abnormal nuclear stress test: (3) Diastolic dysfunction, left ventricle: (4) Dyslipidemia, goal LDL below 70: Plan Reviewed importance of continuing dual antiplatelet therapy uninterrupted for minimum of 6 months post percutaneous intervention. Patient unable to afford Brilinta. Will load with oral clopidogrel this evening at approximately 9 PM (12 hours after most recent dose of Brilinta). She will then continue clopidogrel 75 mg daily in addition to low-dose aspirin. Chlorthalidone discontinued in favor of torsemide. Repeat basic metabolic panel in 1 week as outpatient. Patient will be discharged to home. Cardiology follow-up in 2 weeks. Admission and Anticipated Discharge Date Admission Date: March 05, 2024 Subjective 73-year-old female seen and examined at bedside. Drug-eluting stent implanted to the left anterior descending artery without complication 03/05/2024. Denies chest pain or shortness of breath. Telemetry reveals sinus rhythm in the 70s. Chlorthalidone discontinued in favor of torsemide due to significantly elevated left ventricular end-diastolic pressure per left heart catheterization. Feeling well overnight. Anxious for discharge. Patient unable to afford Brilinta. Will transition to clopidogrel. Review of Systems Review of Systems: All systems reviewed & are unremarkable except as noted in Subjective Physical Exam Constitutional: well nourished; no acute distress Respiratory: normal respiratory effort; no respiratory distress, no labored breathing and no retractions Auscultation: no crackles, no rales, no rhonchi and no wheezes Cardiovascular: Rate/Rhythm: regular rate and regular rhythm Heart Sounds: normal S1 and normal S2; no murmur Vessels: femoral pulses present and radial pulses present; no JVD and no carotid bruit Extremities: no edema Neurologic: CN's II-XI intact bilaterally and moves all extremities; no focal motor deficits Results & Data Vital Signs (Past 12 Hours) Vital Signs Temp Pulse Pulse Resp BP Pulse Ox O2 Del Method 03/06/24 13:13 36.5 C 106 H 19 140/80 90 03/06/24 13:12 81 03/06/24 11:47 36.5 C 106 H 19 140/80 90 Room Air 03/06/24 07:20 36.4 C L 74 19 145/77 H 98 Room Air Laboratory Results CBC 03/06/24 Range/Units 05:39 WBC 9.64 (4.8-10.8) K/ul RBC 4.19 L (4.20-5.40) M/uL Hgb 11.7 L (12.0-16.0) g/dl Hct 36.5 L (37.0-47.0) % Plt Count 302 (130-400) K/uL Neut # (Auto) 6.90 H (1.40-6.50) K/uL Lymph # (Auto) 1.65 (1.20-3.40) K/uL Saline # (Auto) 0.79 H (0.11-0.59) K/uL Eos # (Auto) 0.21 (0.00-0.50) K/uL Baso # (Auto) 0.05 (0.00-0.20) K/uL Comprehensive Metabolic Panel 03/05/24 03/06/24 Range/Units 15:54 05:39 Sodium 135 L (136-145) mmol/L Potassium 4.2 (3.5-5.1) mmol/L Chloride 99 (98-107) mmol/L Carbon Dioxide 28 (21-32) mmol/L BUN 28 H (6-23) mg/dl Creatinine 1.05 1.02 (0.6-1.2) mg/dl Glucose 100 H (70-99(Fasting)) mg/dl Calcium 9.3 (8.6-10.3) mg/dl Intake and Output 03/06/24 03/06/24 03/06/24 06:59 14:59 22:59 Intake Total 200 / 500 300 / 300 Balance 200 / 500 300 / 300 Intake: Oral 200 / 500 300 / 300 Other: # Unmeasured Voids 1 2 Weight 103.7 kg Patient Weight 03/07/24 06:59 Weight 103.7 kg
[2024-03-06] MEDS ORDERED: CLOPIDOGREL BISULFATE 300 MG TAB PO ONE (21:00)
[2024-03-07] MEDS ORDERED: CLOPIDOGREL BISULFATE 75 MG TAB PO SCH (09:00)
--- NOTE | 2024-03-09 17:37 | Electrocardiogram Report ---
Test Reason : Blood Pressure : / mmHG Vent. Rate : 070 BPM Atrial Rate : 070 BPM P-R Int : 202 ms QRS Dur : 072 ms QT Int : 422 ms P-R-T Axes : 070 024 042 degrees QTc Int : 455 ms Normal sinus rhythm Low voltage QRS Cannot rule out Inferior infarct , age undetermined Abnormal ECG When compared with ECG of 30-OCT-2022 10:05, No significant change was found Confirmed by Romulo Michaud ([id number]) on 03/09/2024 5:37:18 PM Referred By: Sherrie Epperson Confirmed By:Romulo Michaud
--- NOTE | 2024-03-09 17:38 | Electrocardiogram Report ---
Test Reason : Blood Pressure : / mmHG Vent. Rate : 069 BPM Atrial Rate : 069 BPM P-R Int : 210 ms QRS Dur : 076 ms QT Int : 402 ms P-R-T Axes : 067 020 064 degrees QTc Int : 430 ms Sinus rhythm with 1st degree A-V block Low voltage QRS Borderline ECG When compared with ECG of 05-MAR-2024 11:50, No significant change was found Confirmed by Romulo Michaud ([id number]) on 03/09/2024 5:37:51 PM Referred By: Sherrie Epperson Confirmed By:Romulo Michaud
--- NOTE | 2024-03-13 09:07 | Discharge Summary ---
Date of Service March 13, 2024 Admission HPI Per Admitting Provider 73-year-old female presented for cardiac catheterization due to anginal symptoms and abnormal Lexiscan nuclear stress test. Admission Exam Per Admitting Provider Cardiovascular + regular rate and + regular rhythm + S1 normal and + S2 normal; no murmur + femoral pulses present and + radial pulses present; no JVD and no carotid bru it no edema Respiratory + respiratory effort normal; no respiratory distress, no labored breathing and no retractions no crackles, no rales, no rhonchi and no wheezes Principal Diagnosis Exertional angina Abnormal Lexiscan nuclear stress test Status post drug-eluting stent implantation to the left anterior descending artery. Discharge Exam Constitutional well nourished; no acute distress ENMT Mallampati Class: III Respiratory normal respiratory effort; no respiratory distress, no labored breathing and no retractions Auscultation: no crackles, no rales, no rhonchi and no wheezes Cardiovascular Rate/Rhythm: regular rate and regular rhythm Heart Sounds: normal S1 and normal S2; no murmur Vessels: femoral pulses present and radial pulses present; no JVD and no carotid bruit Extremities: no edema Neurologic CN's II-XI intact bilaterally and moves all extremities; no focal motor deficits Discharge Data Allergies Allergy/AdvReac Type Severity Reaction Status Date / Time No Known Allergies Allergy Verified 03/05/24 08:42 Consultations Interventional Cardiology, Dr. Garrido Procedures Performed Operation Date: 03/05/24 09:30 Actual Procedures p Cineradiography w/Routine Exam - Jaden Marquez, p Cath, Left with Cors and Vent - Barry Garrido MD, PhD p Drug Eluting Stent SGl Vessel - Barry Garrido MD, PhD Diagnostic cardiac catheterization summary: Summary of Findings Multivessel coronary disease. 70% mid LAD 90% mid D2 (small vessel) 50% distal left circumflex 80% mid OM1 (small vessel) Elevated LVEDP 38mmHg Hemodynamics Rest Ao:157/78/111 Final Ao: 159/74/78 LV: 152/25/38 Ordered Studies 03/05/24 06:37 CL Cath Imgs for PACS use only Routine Hospital Course (1) Status post insertion of drug-eluting stent into left anterior descending (LAD) artery: (2) Abnormal nuclear stress test: (3) Diastolic dysfunction, left ventricle: (4) Dyslipidemia, goal LDL below 70: Plan Reviewed importance of continuing dual antiplatelet therapy uninterrupted for minimum of 6 months post percutaneous intervention. Patient unable to afford Brilinta. Will load with oral clopidogrel this evening at approximately 9 PM (12 hours after most recent dose of Brilinta). She will then continue clopidogrel 75 mg daily in addition to low-dose aspirin. Chlorthalidone discontinued in favor of torsemide. Repeat basic metabolic panel in 1 week as outpatient. Patient will be discharged to home. Cardiology follow-up in 2 weeks. Total Time Total Time Spent Total Time Spent (In Minutes): 30 Discharge Plan Discharge Items Patient Disposition: Home - Self-Care Reason For Visit: ANGINA, ABNORMAL STRESS S/P PCI LAD Discharge Diagnosis: Coronary artery disease status drug eluting stent implantation to the left anterior descending artery. Condition on Discharge: Good Activity: Per Instructions section Non-emergency contact: Filter Assembler Call non-emergency contact if: you have any medication questions and your symptoms worsen Follow-up/Referrals: Jaden Marquez DO [Filter Assembler] - George Cordoba DO [Primary Care Provider] - Diet: Heart Healthy Addtl Attending Provider Instructions: ACTIVITY RECOMMENDATIONS: It is common to feel weak and fatigue for a few days. * Do not drive or operate any motorized equipment for the next three days. * Limit stair usage (2 or 3 trips a day only) for the next three days. * Do not lift anything heavier than 10 pounds for the next three days. * Do not engage in vigorous exercise or any sports for the next five days. * You may shower the day after your procedure, but do not immerse the area for three days. Cleanse the site gently with soap and water. SPECIAL CARE INSTRUCTIONS: * You may replace the pressure dressing or band-aid the morning after the procedure. * After your procedure, it is normal to have a small bruise or small lump at the site. Examine your site daily for any change in the bruise or lump, redness, swelling, drainage or numbness. Notify your doctor if any change. BLEEDING: * If there is a small amount of bleeding at the site, lie down and apply firm pressure with a clean cloth for ten minutes. When the bleeding stops, lie quietly keeping the procedure limb straight for six hours. Notify your doctor as soon as possible. * If the bleeding does not stop after ten minutes or if there is a large amount of bleeding or spurting, call 911 immediately. Continue to lie down and hold firm pressure until help arrives. SKIN IRRITATION: * You may experience some redness and/or swelling in the area where radiation was administered. If any skin irritation occurs, please contact your family physician. FOLLOW UP VISIT: Keep any scheduled doctor appointments. Pending Studies at Discharge: Yes Studies:: Blood draw lab test in one at [facility]. Basic metabolic panel. Stand-Alone Forms: My [facility] [employer], Smoking Cessation Medications and DC Order Prescriptions: New torsemide 20 mg Tablet 20 mg PO QAM Qty: 34 6RF losartan 25 mg Tablet 25 mg PO QAM Qty: 34 6RF clopidogrel 75 mg Tablet 75 mg PO QAM Qty: 34 6RF Continued red yeast rice 600 mg capsule 1,200 mg PO QAM Rx Instructions: Unable to verify OTC meds at this date/time Centrum Silver 0.4-300-250 mg-mcg-mcg tablet 1 tab PO QAM Rx Instructions: Unable to verify OTC meds at this date/time acetaminophen [Tylenol] 325 mg capsule 325 mg PO QID PRN (Reason: Pain) ketoconazole 2 % cream 1 appln TOP DAILY Rx Instructions: Apply to feet magnesium oxide 500 mg capsule 500 mg PO QPM Rx Instructions: Unable to verify OTC meds at this date/time cholecalciferol (vitamin D3) [Vitamin D3] 50 mcg (2,000 unit) Capsule 50 mcg PO QAM aspirin 81 mg Capsule 81 mg PO QAM diphenhydramine-acetaminophen [Tylenol PM Extra Strength] 25-500 mg Tablet 1 tab PO HS PRN (Reason: Sleep) Rx Instructions: Unable to verify OTC meds at this date/time cetirizine [Zyrtec] 10 mg Tablet 10 mg PO DAILY PRN (Reason: Allergy Symptoms) Hylands Leg Cramp 1 tab PO QAM Rx Instructions: Unable to verify OTC meds at this date/time losartan 50 mg tablet 50 mg PO QAM metoprolol succinate 25 mg tablet extended release 24 hr 25 mg PO QAM fluticasone propionate 50 mcg/actuation spray,suspension 2 spray INTRANASAL QAM ezetimibe 10 mg tablet 10 mg PO QAM Discontinued diclofenac sodium 75 mg tablet,delayed release (DR/EC) 75 mg PO BID PRN (Reason: pain) Qty: 180 2RF chlorthalidone 25 mg tablet 25 mg PO QAM Discharge Orders: Discharge Order (Routine); Ordered 03/06/24 Ordered By: Jaden Marquez Admission Data Admit Date/Time: 03/05/24 11:29 Attending Provider: Jaden Marquez Admit Provider: Barry Garrido Primary Care Provider: George Cordoba Other Interventions: Discharge Summary Assessment (RN) Last Done: 03/06/24 13:13
== END 2024-03-06 14:41 | disposition home or self-care (01) ==
LOC: CC 08:10 → 4W 08:10
DX: E78.5 Hyperlipidemia, unspecified; I11.9 Hypertensive heart disease without heart failure; I25.10 Atherosclerotic heart disease of native coronary artery without angina pectoris; I51.9 Heart disease, unspecified; Z78.9 Other specified health status